=== PATIENT | male | born 1940 | race Caucasian/White ===

== ENCOUNTER → 2017-01-09 | Outpatient (CLI) | payer MEDICARE, OTHER ==
[2017-01-09 09:11] LABS: ABSOLUTE BASOPHILS # (AUTO) 0.1 10^3/uL (0.0-0.2); ABSOLUTE EOSINOPHILS # (AUTO) 0.5 10^3/uL (0.0-0.6); ABSOLUTE MONOCYTES (AUTO) 0.5 10^3/uL (0.1-1.4); ABSOLUTE NEUT (AUTO) 6.3 10^3/uL (1.7-8.2); BASOPHILS % (AUTO) 0.6 % (0-2); EOSINOPHILS % (AUTO) 6.5 % (0-6); HEMATOCRIT 29.9 % (37.9-51.0); HEMOGLOBIN 9.4 g/dL (13.5-17.0); HGB HCT DIFFERENCE -1.7; LYMPHOCYTES % (AUTO) 12.4 % (13-45); MEAN CORPUSCULAR HGB CONC 31.4 g/dL (32.0-36.0); MEAN CORPUSCULAR VOLUME 83 fl (80-97); MONOCYTES % (AUTO) 6.2 % (3-13); RED BLOOD COUNT 3.61 10^6/uL (4.35-5.55); RED CELL DISTRIBUTION WIDTH 17.3 % (11.5-14.0); SEGMENTED NEUTROPHILS % (AUTO) 74.3 % (42-78); WHITE BLOOD COUNT 8.4 10^3/uL (4.0-10.5)
[2017-01-09 09:39] LABS: ANION GAP 12 (5-19); BLOOD UREA NITROGEN 52 mg/dL (7-20); CALCIUM 9.1 mg/dL (8.4-10.2); CARBON DIOXIDE 30 mmol/L (22-30); CHLORIDE 100 mmol/L (98-107); GLUCOSE 150 mg/dL (75-110); POTASSIUM 4.1 mmol/L (3.6-5.0)
== END ==
LOC: LAB 08:48
PROVIDERS: ATTEND Internal Medicine Cardiovascular Disease
DX: I25.10 Atherosclerotic heart disease of native coronary artery without angina pectoris (principal); D64.9 Anemia, unspecified
CPT/HCPCS: 36415; 80048; 85025

== ENCOUNTER → 2017-01-12 | Outpatient (CLI) | payer MEDICARE, OTHER ==
[2017-01-12 11:55] LABS: ANION GAP 13 (5-19); BLOOD UREA NITROGEN 42 mg/dL (7-20); CALCIUM 8.8 mg/dL (8.4-10.2); CARBON DIOXIDE 28 mmol/L (22-30); CHLORIDE 102 mmol/L (98-107); CREATININE RESULT 2.64 mg/dL (0.52-1.25); GLUCOSE 85 mg/dL (75-110); POTASSIUM 4.2 mmol/L (3.6-5.0); SODIUM 142.9 mmol/L (137-145)
== END ==
LOC: LAB 11:14
PROVIDERS: ATTEND Internal Medicine Cardiovascular Disease
DX: I50.9 Heart failure, unspecified (principal); I10 Essential (primary) hypertension; I73.9 Peripheral vascular disease, unspecified
CPT/HCPCS: 36415; 80048

== ENCOUNTER 2017-12-18 09:52 | Inpatient (IN) | payer MEDICARE, OTHER ==
--- NOTE | 2017-12-18 10:18 | ER Document Report ---
ED General - General Chief Complaint: Shortness Of Breath Stated Complaint: SHORTNESS OF BREATH Time Seen by Provider: 12/18/17 09:57 Mode of Arrival: Medic Information source: Patient, Emergency Med Personnel Notes: 77-year-old male history of CHF, with dialysis access placed presents febrile tachycardic hypoxic from home. Patient was given 1 nitroglycerin by EMS, he was found to be satting 78% on room air was placed on nonrebreather initial temp was 101.2 Patient is not on oxygen at home TRAVEL OUTSIDE OF THE [place] IN LAST 30 DAYS: No - HPI Onset: Yesterday Onset/Duration: Sudden Quality of pain: No pain Severity: Severe Pain Level: Denies Associated symptoms: Fever, Shortness of breath Exacerbated by: Denies Relieved by: Denies Similar symptoms previously: Yes Recently seen / treated by doctor: No - Related Data Allergies/Adverse Reactions: enalapril [Enalapril] Allergy (Severe, Verified 12/18/17 10:13) Angioneurotic Edema shrimp Allergy (Verified 12/18/17 10:13) Past Medical History - Social History Smoking Status: Never Smoker Cigarette use (# per day): No Chew tobacco use (# tins/day): No Smoking Education Provided: No Family History: Reviewed & Not Pertinent, Other - no FH of familial angioedema - Past Medical History Cardiac Medical History: Reports: Hx Heart Attack - 2007, Hx Hypercholesterolemia, Hx Hypertension Denies: Hx Coronary Artery Disease Pulmonary Medical History: Reports: Hx COPD Denies: Hx Asthma, Hx Bronchitis, Hx Pneumonia Neurological Medical History: Denies: Hx Cerebrovascular Accident, Hx Seizures Endocrine Medical History: Reports: Hx Diabetes Mellitus Type 2 Renal/ Medical History: Reports: Hx End Stage Renal Disease Musculoskeltal Medical History: Reports Hx Arthritis - GENERALIZED THROUGHOUT Psychiatric Medical History: Reports: Hx Depression - Immunizations Hx Diphtheria, Pertussis, Tetanus Vaccination: No Hx Pneumococcal Vaccination: 08/06/14 Review of Systems - Review of Systems Notes: REVIEW OF SYSTEMS: CONSTITUTIONAL : Admits to fever EENT: Denies eye, ear, throat, or mouth pain or symptoms. Denies nasal or sinus congestion or discharge. Denies throat, tongue, or mouth swelling or difficulty swallowing. CARDIOVASCULAR: Denies chest pain. Denies palpitations or racing or irregular heart beat. Denies ankle edema. RESPIRATORY: Admits to shortness of breath GASTROINTESTINAL: Denies abdominal pain or distention. Denies nausea, vomiting , or diarrhea. Denies blood in vomitus, stools, or per rectum. Denies black, tarry stools. Denies constipation. GENITOURINARY: Denies difficulty urinating, painful urination, burning, frequency, blood in urine, or discharge. MUSCULOSKELETAL: Denies back or neck pain or stiffness. Denies joint pain or swelling. SKIN: Denies rash, lesions or sores. HEMATOLOGIC : Denies easy bruising or bleeding. LYMPHATIC: Denies swollen, enlarged glands. NEUROLOGICAL: Denies confusion or altered mental status. Denies passing out or loss of consciousness. Denies dizziness or lightheadedness. Denies headache. Denies weakness or paralysis or loss of use of either side. Denies problems with gait or speech. Denies sensory loss, numbness, or tingling. Denies seizures. PSYCHIATRIC: Denies anxiety or stress. Denies depression, suicidal ideation, or homicidal ideation. ALL OTHER SYSTEMS REVIEWED AND NEGATIVE. Dictation was performed using [employer] voice recognition software PHYSICAL EXAMINATION: GENERAL: Ill-appearing male on nasal cannula HEAD: Atraumatic, normocephalic. EYES: Pupils equal round and reactive to light, extraocular movements intact, sclera anicteric, conjunctiva are normal. ENT: Nares patent, oropharynx clear without exudates. Moist mucous membranes. NECK: Normal range of motion, supple without lymphadenopathy LUNGS: Rhonchi bilateral bases satting 95% on nasal cannula HEART: Regular rate and rhythm without murmurs ABDOMEN: Soft, nontender, nondistended abdomen. No guarding, no rebound. No masses appreciated. Musculoskeletal: Normal range of motion, no pitting or edema. No cyanosis. NEUROLOGICAL: Cranial nerves grossly intact. Normal speech, normal gait. Normal sensory, motor exams slightly confused PSYCH: Normal mood, normal affect. SKIN: Hot to touch Physical Exam - Vital signs Vitals: Pulse Ox 96 12/18/17 09:53 Course - Re-evaluation Re-evalutation: 12/18/17 10:23 Patient's presentation is consistent with a febrile illness probable pneumonia, lab work imaging pending 12/18/17 11:04 Noted to have troponin 1.0 , yesterday at [facility] was negative per transfer center. 12/18/17 11:30 Chest x-ray is consistent with pneumonia antibiotics have been started I will hold IV fluids given history of kidney failure - Vital Signs Vital signs: Temp Pulse Resp BP Pulse Ox 26 H 175/73 H 98 12/18/17 10:46 12/18/17 10:46 12/18/17 10:46 - Laboratory Result Diagrams: 12/18/17 09:58 12/18/17 09:58 Laboratory results interpreted by me: 12/18/17 12/18/17 12/18/17 09:58 09:58 09:58 RBC 3.86 L Hgb 11.1 L Hct 34.1 L RDW 16.9 H Seg Neuts % (Manual) 86 H Lymphocytes % (Manual) 8 L VBG pH VBG pCO2 Sodium 146.0 H Carbon Dioxide 31 H BUN 55 H Creatinine 3.69 H Est GFR ( Amer) 19 L Est GFR (Non-Af Amer) 16 L Glucose 166 H AST 68 H Creatine Kinase 1037 H CK-MB (CK-2) 12.80 H NT-Pro-B Natriuret Pep 2660 H 12/18/17 09:58 RBC Hgb Hct RDW Seg Neuts % (Manual) Lymphocytes % (Manual) VBG pH 7.26 L VBG pCO2 71.6 H* Sodium Carbon Dioxide BUN Creatinine Est GFR ( Amer) Est GFR (Non-Af Amer) Glucose AST Creatine Kinase CK-MB (CK-2) NT-Pro-B Natriuret Pep - Diagnostic Test Radiology reviewed: Image reviewed - 1 view chest x-ray notes pneumonia, Reports reviewed Critical Care Note - Critical Care Note Total time excluding time spent on procedures (mins): 35 Comments: 35 minutes of critical care time spent in direct contact evaluating and reevaluating the patient, treating symptoms, reviewing labs and studies and speaking with family and consultants excluding any procedures Discharge - Discharge Clinical Impression: Elevated troponin Chronic kidney disease Qualifiers: Chronic kidney disease stage: stage 4 (severe) Qualified Code(s): N18.4 - Chronic kidney disease, stage 4 (severe) Pneumonia Qualifiers: Pneumonia type: due to unspecified organism Laterality: right Lung location: lower lobe of lung Qualified Code(s): J18.1 - Lobar pneumonia, unspecified organism Sepsis Qualifiers: Sepsis type: sepsis due to unspecified organism Qualified Code(s): A41.9 - Sepsis, unspecified organism Condition: Fair Disposition: ADMITTED INPATIENT Admitting Provider: Hospitalist Unit Admitted: IMCU Referrals: JERAMY GUALLPA MD [Primary Care Provider] - Follow up as needed
[2017-12-18 10:37] LABS: HEMATOCRIT 34.1 % (37.9-51.0); HEMOGLOBIN 11.1 g/dL (13.5-17.0); MEAN CORPUSCULAR HEMOGLOBIN 28.6 pg (27.0-33.4); MEAN CORPUSCULAR HGB CONC 32.4 g/dL (32.0-36.0); MEAN CORPUSCULAR VOLUME 88 fl (80-97); PLATELET COUNT 157 10^3/uL (150-450); RED BLOOD COUNT 3.86 10^6/uL (4.35-5.55); RED CELL DISTRIBUTION WIDTH 16.9 % (11.5-14.0); WHITE BLOOD COUNT 9.4 10^3/uL (4.0-10.5)
--- NOTE | 2017-12-18 10:40 | RADIOLOGY REPORT (SQ) ---
EXAM DESCRIPTION: CHEST SINGLE VIEW COMPLETED DATE/TIME: 12/18/2017 10:09 am REASON FOR STUDY: bed 19 db COMPARISON: January 2016 EXAM PARAMETERS: NUMBER OF VIEWS: 1 TECHNIQUE: Single frontal radiographic view of the chest acquired. RADIATION DOSE: NA LIMITATIONS: Patient has made a shallow inspiration. FINDINGS: LUNGS AND PLEURA: There is some minimal right basilar densities most consistent with atele ctatic changes although I cannot exclude a minimal infiltrate. Remaining lung nunn are clear. No pleural effusions are identified. MEDIASTINUM AND HILAR STRUCTURES: No masses. Contour normal. HEART AND VASCULAR STRUCTURES: Allowing for the shallow inspiration the configuration of the heart me diastinal structures is unchanged BONES: No acute findings. HARDWARE: None in the chest. OTHER: There is some narrowing of the tracheal air column in the lower cervical region unchanged from the previous study IMPRESSION: Minimal right basilar densities most consistent with atelectatic changes although I grzegorz ot exclude a minimal infiltrate. Remaining lung nunn are clear. Other findings as noted above TECHNICAL DOCUMENTATION: JOB ID: [id number] [employer]- All Rights Reserved Reading location - IP/workstation name: [email or web address]
[2017-12-18 10:48] LABS: ALANINE AMINOTRANSFERASE 32 U/L (21-72); ALBUMIN 3.5 g/dL (3.5-5.0); ALKALINE PHOSPHATASE 70 U/L (38-126); ANION GAP 14 (5-19); ASPARTATE AMINO TRANSFERASE 68 U/L (17-59); BILIRUBIN,DIRECT 0.2 mg/dL (0.0-0.4); BILIRUBIN,TOTAL 0.2 mg/dL (0.2-1.3); BLOOD UREA NITROGEN 55 mg/dL (7-20); CALCIUM 8.4 mg/dL (8.4-10.2); CARBON DIOXIDE 31 mmol/L (22-30); CHLORIDE 101 mmol/L (98-107); CREATINE KINASE 1037 U/L (55-170); GLUCOSE 166 mg/dL (75-110); POTASSIUM 4.9 mmol/L (3.6-5.0); TOTAL PROTEIN 7.2 g/dL (6.3-8.2)
[2017-12-18 10:59] LABS: CREATINE KINASE MB 12.8 ng/mL (<4.55); VENOUS BLOOD BASE EXCESS 2.6 mmol/L; VENOUS BLOOD HCO3 31.4 mmol/L (20-32); VENOUS BLOOD PH 7.26 (7.30-7.42)
[2017-12-18 11:01] LABS: VENOUS BLOOD PCO2 71.6 mmHg (35-63)
[2017-12-18 11:02] LABS: TROPONIN I 1.03 ng/mL
[2017-12-18 11:20] LABS: ABSOLUTE LYMPHOCYTES# (MANUAL) 0.8 10^3/uL (0.5-4.7); ABSOLUTE MONOCYTES # (MANUAL) 0.6 10^3/uL (0.1-1.4); ABSOLUTE NEUTROPHILS# (MANUAL) 8.1 10^3/uL (1.7-8.2); ANISOCYTOSIS SLIGHT; BASOPHILS % (MANUAL) 0 % (0-2); EOSINOPHILS % (MANUAL) 0 % (0-6); HYPOCHROMASIA SLIGHT; LYMPHOCYTES % (MANUAL) 8 % (13-45); MONOCYTES % (MANUAL) 6 % (3-13); PLATELET COMMENT ADEQUATE; SEGMENTED NEUTROPHILS % (MAN) 86 % (42-78); TOTAL CELLS COUNTED 100; TOXIC GRANULATION SLIGHT; TOXIC VACUOLATION PRESENT
[2017-12-18] MEDS ORDERED: CEFTRIAXONE INJ 1000 MG VIAL IV ONE (11:24)
[2017-12-18] MEDS ORDERED: IPRATROPIUM/ALBUTEROL 0.5-2.5 MG/3 ML AMPUL NEB PRN (11:33)
[2017-12-18] MEDS ORDERED: ACETAMINOPHEN 325 MG TABLET PO PRN (11:33)
[2017-12-18] MEDS ORDERED: ACETAMINOPHEN 325 MG SUPP.RECT PR ONE (11:55)
[2017-12-18 12:11] LABS: AMORPHOUS SEDIMENT,URINE TRACE /HPF; APPEARANCE,URINE SLIGHTLY-CLOUDY; BILIRUBIN,URINE NEGATIVE (NEGATIVE); COLOR,URINE YELLOW; GLUCOSE, URINE 50 mg/dL (NEGATIVE); KETONES,URINE NEGATIVE (NEGATIVE); LEUKOCYTE ESTERASE,URINE NEGATIVE (NEGATIVE); NITRITE,URINE NEGATIVE (NEGATIVE); PROTEIN,URINE >=500 mg/dL (NEGATIVE); URINE SPECIFIC GRAVITY 1.017; UROBILINOGEN,URINE NEGATIVE mg/dL (<2.0)
--- NOTE | 2017-12-18 14:03 | PDOC H&P ---
History of Present Illness Admission Date/PCP: 12/18/17 11:50 JERAMY GUALLPA MD Patient complains of: Fever, cough and confusion History of Present Illness: LAURO CAI is a 77 year old male with history of CHF, with dialysis access catheter placed but not on dialysis yet presents with fever of 101.2, tachycardia and hypoxemia from home. Patient was found to have oxygen saturations in the 70's on room air. He was placed on a nonrebreather mask and transported to [facility]'s ED. He had been seen at [facility] ED yesterday with complaints of cough, fever and not feeling well and had a work up and was discharged home. He denies any nausea, vomiting or diarrhea. He denies any dysuria. Past Medical History Cardiac Medical History: Reports: Congestive Heart Failure, Myocardial Infarction - 2007, Hyperlipidema, Hypertension Denies: Coronary Artery Disease Pulmonary Medical History: Reports: Chronic Obstructive Pulmonary Disease (COPD) Denies: Asthma, Bronchitis, Pneumonia EENT Medical History: Reports: None Neurological Medical History: Reports: None Denies: Seizures Endocrine Medical History: Reports: Diabetes Mellitus Type 2 Renal/ Medical History: Reports: End Stage Renal Disease Malignancy Medical History: Reports: None GI Medical History: Reports: Gastroesophageal Reflux Disease Musculoskeltal Medical History: Reports: Arthritis - GENERALIZED THROUGHOUT Psychiatric Medical History: Reports: Depression Hematology: Reports: Anemia Past Surgical History Past Surgical History: Reports: Other - Dialysis catheter Social History Information Source: Patient Lives with: Family Smoking Status: Never Smoker Frequency of Alcohol Use: Occasional Hx Recreational Drug Use: No Drugs: None Hx Prescription Drug Abuse: No - Advance Directive Resuscitation Status: Full Code Surrogate healthcare decision maker:: Susie Cai Family History Family History: DM, Other - no FH of familial angioedema Parental Family History Reviewed: Yes Children Family History Reviewed: Yes Sibling(s) Family History Reviewed.: Yes Medication/Allergy Home Medications: Albuterol Sulfate [Proair HFA] 2 puff IH Q4HP PRN 12/18/17 Amlodipine Besylate [Norvasc 10 mg Tablet] 10 mg PO QPM 12/18/17 Aspirin [Adult Low Dose Aspirin EC] 81 mg PO DAILY 12/18/17 Cetirizine HCl [Zyrtec 10 mg Tablet] 10 mg PO QPM 12/18/17 Escitalopram Oxalate [Lexapro] 20 mg PO QHS 12/18/17 Ferrous Sulfate [Feosol 325 mg Tablet] 325 mg PO DAILY 12/18/17 Finasteride [Proscar 5 mg Tablet] 5 mg PO QPM 12/18/17 Fluticasone/Salmeterol [Advair 500-50 Diskus 28 Dose] 1 puff IH Q12 12/18/17 Furosemide [Lasix 40 mg Tablet] 40 mg PO DAILY 12/18/17 Gabapentin [Neurontin 300 mg Capsule] 300 mg PO Q8 12/18/17 Isosorbide Mononitrate [Imdur 30 mg Tablet.er] 30 mg PO DAILY 12/18/17 Linagliptin [Tradjenta] 5 mg PO DAILY 12/18/17 Metolazone [Zaroxolyn 2.5 mg Tablet] 2.5 mg PO DAILY 12/18/17 Metoprolol Succinate [Toprol Xl 25 mg Tab.sr] 12.5 mg PO QAM 12/18/17 Multivitamin [Daily Multiple Vitamin] 1 tab PO DAILY 12/18/17 Potassium Chloride [Klor-Con M20] 20 meq PO DAILY 12/18/17 Prazosin HCl [Minipress] 2 mg PO BID 12/18/17 Risperidone [Risperdal 1 mg Tablet] 1 mg PO QPM 12/18/17 Simvastatin [Zocor 20 mg Tablet] 20 mg PO QHS 12/18/17 Torsemide [Demadex 20 mg Tablet] 20 mg PO QPM 12/18/17 l [place]/B Bifidum/B Longum [Cage MyLifeBrand Capsule] 1 cap PO DAILY Allergies/Adverse Reactions: enalapril [Enalapril] Allergy (Severe, Verified 12/18/17 10:13) Angioneurotic Edema shrimp Allergy (Verified 12/18/17 10:13) Review of Systems Constitutional: PRESENT: chills, fatigue, fever(s), weakness Eyes: ABSENT: visual disturbances Ears: PRESENT: as per HPI Nose, Mouth, and Throat: PRESENT: as per HPI Breasts: PRESENT: as per HPI Cardiovascular: PRESENT: as per HPI Respiratory: PRESENT: cough, dyspnea, sputum Gastrointestinal: ABSENT: abdominal pain, constipation, diarrhea, hematemesis, hematochezia, nausea, vomiting Genitourinary: ABSENT: dysuria, hematuria Musculoskeletal: ABSENT: joint swelling Integumentary: ABSENT: rash, wounds Neurological: ABSENT: abnormal gait, abnormal speech, confusion, dizziness, focal weakness, syncope Psychiatric: ABSENT: anxiety, depression, homidical ideation, suicidal ideation Endocrine: ABSENT: cold intolerance, heat intolerance, polydipsia, polyuria Hematologic/Lymphatic: ABSENT: easy bleeding, easy bruising Physical Exam Vital Signs: Temp Pulse Resp BP Pulse Ox 98.1 F 22 H 163/55 H 93 12/18/17 13:38 12/18/17 13:31 12/18/17 13:31 12/18/17 13:31 General appearance: PRESENT: no acute distress, disheveled, obese, well- developed, well-nourished Head exam: PRESENT: atraumatic, normocephalic Eye exam: PRESENT: conjunctiva pink, EOMI, PERRLA. ABSENT: scleral icterus Ear exam: PRESENT: normal external ear exam Mouth exam: PRESENT: moist, tongue midline Teeth exam: PRESENT: poor dentation Neck exam: ABSENT: carotid bruit, JVD, lymphadenopathy, thyromegaly Respiratory exam: PRESENT: crackles - right base, decreased breath sounds, symmetrical, unlabored Cardiovascular exam: PRESENT: RRR. ABSENT: diastolic murmur, rubs, systolic murmur Vascular exam: PRESENT: normal capillary refill GI/Abdominal exam: PRESENT: normal bowel sounds, soft. ABSENT: distended, guarding, mass, organolmegaly, rebound, tenderness Rectal exam: PRESENT: deferred Extremities exam: PRESENT: full ROM. ABSENT: calf tenderness, clubbing, pedal edema Neurological exam: PRESENT: alert, awake, oriented to person, oriented to place , CN II-XII grossly intact. ABSENT: motor sensory deficit Psychiatric exam: PRESENT: appropriate affect, normal mood. ABSENT: homicidal ideation, suicidal ideation Skin exam: PRESENT: dry, warm, other - Chronic venous stasis changes over lower extremities Results Impressions: Chest X-Ray 12/18/17 09:55 IMPRESSION: Minimal right basilar densities most consistent with atelectatic changes although I cannot exclude a minimal infiltrate. Remaining lung nunn are clear. Other findings as noted above Assessment & Plan - Diagnosis (1) Sepsis Qualifiers: Sepsis type: sepsis due to unspecified organism Qualified Code(s): A41.9 - Sepsis, unspecified organism Is this a current diagnosis for this admission?: Yes Plan: Patient was found to have fever, tachycardia, tachypnea and hypoxemia upon presentation. He was given one liter of fluid prehospital. He was not given more fluid due to his CKD and history of heart failure. Symptoms resolved with oxygen and IV antibiotic initiation. Blood cultures and urine culture are pending (2) Pneumonia Qualifiers: Pneumonia type: due to unspecified organism Laterality: right Lung location: lower lobe of lung Qualified Code(s): J18.1 - Lobar pneumonia, unspecified organism Is this a current diagnosis for this admission?: Yes Plan: Start broad spectrum antibiotics (3) Acute on chronic renal failure Is this a current diagnosis for this admission?: Yes Plan: Will monitor. Avoid nephrotoxic medications (4) Diabetes Qualifiers: Diabetes mellitus type: type 2 Diabetes mellitus complication status: with diabetic arthropathy Is this a current diagnosis for this admission?: Yes Plan: Sliding scale coverage (5) Elevated troponin Is this a current diagnosis for this admission?: Yes Plan: Likely secondary to profound hypoxemia. He had a negative cardiolite stress test in January - Time Time Spent: 50 to 70 Minutes Critical Time spent with patient: 25-34 minutes Medications reviewed and adjusted accordingly: Yes
[2017-12-18] MEDS ORDERED: GLUCAGON,HUMAN RECOMB 1 MG INJ IM PRN (14:23)
[2017-12-18] MEDS ORDERED: DEXTROSE 40% GEL 15 GM TUBE PO PRN ×2 (14:23)
[2017-12-18] MEDS ORDERED: DEXTROSE 50%-WATER 25 GM/50 ML DISP.SYRIN IV PRN ×2 (14:23)
[2017-12-18] MEDS: IPRATROPIUM/ALBUTEROL 0.5-2.5 MG/3 ML AMPUL NEB SCH ×2 (16:02→23:50)
[2017-12-18 17:27] LABS: ARTERIAL BLOOD BASE EXCESS 1.7 mmol/L; ARTERIAL BLOOD HCO3 29.5 mmol/L (20-26); ARTERIAL BLOOD O2 SATURATION 95.1 % (94-98); ARTERIAL BLOOD PH 7.29 (7.35-7.45); ARTERIAL BLOOD PO2 85.8 mmHg (80-100); ARTERIAL BLOOD TOTAL CO2 31.4 mmol/L (23-27)
[2017-12-18 17:29] LABS: ARTERIAL BLOOD FIO2 3L
[2017-12-18] MEDS: AMLODIPINE BESYLATE 10 MG TABLET PO SCH (18:30)
[2017-12-18] MEDS: RISPERIDONE 1 MG TABLET PO SCH (18:31)
[2017-12-18] MEDS: CETIRIZINE 10 MG TABLET PO SCH (18:31)
[2017-12-18] MEDS: FINASTERIDE 5 MG TABLET PO SCH (18:31)
--- NOTE | 2017-12-18 21:15 | EKG REPORT ---
SEVERITY:- BORDERLINE ECG - SINUS RHYTHM BORDERLINE PROLONGED QT INTERVAL : Confirmed by: Fausto Satler 18-Dec-2017 21:14:24
[2017-12-18] MEDS: ESCITALOPRAM OXALATE 10 MG TABLET PO SCH (21:53)
[2017-12-18] MEDS: SIMVASTATIN 10 MG TABLET PO SCH (21:54)
[2017-12-18] MEDS: FAMOTIDINE 20 MG TABLET PO SCH (21:54)
[2017-12-18] MEDS: GUAIFENESIN 600 MG TABLET.SA PO SCH (21:54)
[2017-12-18] MEDS: GABAPENTIN 300 MG CAPSULE PO SCH (21:55)
[2017-12-18] MEDS: FLUTICASONE/SALMETEROL DISKUS 500-50 MCG/DOSE IH SCH (21:55)
[2017-12-19] MEDS: GABAPENTIN 300 MG CAPSULE PO SCH ×3 (05:41→22:39)
[2017-12-19 06:00] LABS: ABSOLUTE BASOPHILS # (AUTO) 0.1 10^3/uL (0.0-0.2); ABSOLUTE EOSINOPHILS # (AUTO) 0.2 10^3/uL (0.0-0.6); ABSOLUTE LYMPHOCYTES (AUTO) 0.8 10^3/uL (0.5-4.7); ABSOLUTE MONOCYTES (AUTO) 0.6 10^3/uL (0.1-1.4); ABSOLUTE NEUT (AUTO) 5.2 10^3/uL (1.7-8.2); BASOPHILS % (AUTO) 0.8 % (0-2); EOSINOPHILS % (AUTO) 3.1 % (0-6); HEMATOCRIT 31.3 % (37.9-51.0); HEMOGLOBIN 10.2 g/dL (13.5-17.0); LYMPHOCYTES % (AUTO) 12.1 % (13-45); MEAN CORPUSCULAR HEMOGLOBIN 28.4 pg (27.0-33.4); MEAN CORPUSCULAR HGB CONC 32.7 g/dL (32.0-36.0); MEAN CORPUSCULAR VOLUME 87 fl (80-97); MONOCYTES % (AUTO) 8.2 % (3-13); PLATELET COUNT 122 10^3/uL (150-450); RED CELL DISTRIBUTION WIDTH 16.4 % (11.5-14.0); SEGMENTED NEUTROPHILS % (AUTO) 75.8 % (42-78); TOTAL CELLS COUNTED % (AUTO) 100 %; WHITE BLOOD COUNT 6.9 10^3/uL (4.0-10.5)
[2017-12-19 06:14] LABS: ANION GAP 7 (5-19); BLOOD UREA NITROGEN 51 mg/dL (7-20); CALCIUM 8.3 mg/dL (8.4-10.2); CARBON DIOXIDE 34 mmol/L (22-30); CHLORIDE 102 mmol/L (98-107); GLUCOSE 136 mg/dL (75-110); POTASSIUM 4.1 mmol/L (3.6-5.0); SODIUM 143.1 mmol/L (137-145)
[2017-12-19] MEDS: IPRATROPIUM/ALBUTEROL 0.5-2.5 MG/3 ML AMPUL NEB SCH ×3 (08:15→23:51)
[2017-12-19] MEDS: ASPIRIN 81 MG TABLET, ENT COATED PO SCH (09:54)
[2017-12-19] MEDS: FERROUS SULFATE 325 MG TABLET PO SCH (09:54)
[2017-12-19] MEDS: GUAIFENESIN 600 MG TABLET.SA PO SCH ×2 (09:54→22:40)
[2017-12-19] MEDS: ISOSORBIDE MONONITRATE 30 MG TAB.ER.24H PO SCH (09:55)
[2017-12-19] MEDS: MULTIVITAMIN TABLET PO SCH (09:55)
[2017-12-19] MEDS: AZITHROMYCIN 500 MG in DEXTROSE 5%-WATER 250 ML IV SCH (09:57)
[2017-12-19] MEDS: FAMOTIDINE 20 MG TABLET PO SCH ×2 (09:57→22:40)
[2017-12-19] MEDS ORDERED: CEFTRIAXONE 1 GM/D5W RTU 1 GM/50 ML RTUPB IV SCH (10:00)
[2017-12-19] MEDS ORDERED: ENOXAPARIN SODIUM INJ 30 MG/0.3 ML DISP.SYRIN SUBCUT SCH (10:00)
[2017-12-19] MEDS ORDERED: METOPROLOL SUCCINATE 25 MG TAB.SR.24H PO SCH (10:45)
[2017-12-19] MEDS ORDERED: METOPROLOL SUCCINATE 25 MG TAB.SR.24H PO ONE (12:00)
[2017-12-19] MEDS: CEFTRIAXONE SODIUM 1,000 MG in DEXTROSE 5%-WATER 50 ML IV SCH (12:21)
[2017-12-19] MEDS: FLUTICASONE/SALMETEROL DISKUS 500-50 MCG/DOSE IH SCH ×2 (12:22→22:43)
[2017-12-19] MEDS: INSULIN LISPRO 100 UNIT/ML 3 ML VIAL SUBCUT PRN ×2 (12:25→17:23)
--- NOTE | 2017-12-19 15:58 | PDOC PROGRESS REPORT ---
Subjective Progress Note for:: 12/19/17 Subjective:: 77-year-old gentleman with past medical history of CHF, EF unknown Chronic kidney disease with a dialysis access catheter not yet initiated on dialysis. COPD Coronary artery disease status post prior myocardial infarction Hypertension Hyperlipidemia Type 2 diabetes GERD Depression He presented to the hospital with fever cough and confusion. He was found to have a fever and was hypoxic with sats in the 70s on room air. The patient was diagnosed with sepsis and started on Rocephin and azithromycin for pneumonia. He reportedly had a negative stress test in January 2018. Troponin was abnormal. [place] to be secondary to sepsis. No acute ST segment or T-wave changes on EKG. BNP was elevated at 2660. Reason For Visit: PNEUMONIA ACUTE RESPIRATORY FAILURE WITH Physical Exam Vital Signs: Temp Pulse Resp BP Pulse Ox 98.7 F 65 16 158/46 H 98 12/19/17 07:52 12/19/17 08:15 12/19/17 08:15 12/19/17 07:52 12/19/17 08:15 Intake & Output 12/18/17 12/19/17 12/20/17 06:59 06:59 06:59 Intake Total 330 Balance 330 Weight 118.1 kg General appearance: PRESENT: no acute distress Head exam: PRESENT: normocephalic Ear exam: PRESENT: normal external ear exam Mouth exam: PRESENT: moist Respiratory exam: PRESENT: crackles, rhonchi, symmetrical Cardiovascular exam: PRESENT: RRR GI/Abdominal exam: PRESENT: normal bowel sounds, soft. ABSENT: tenderness Rectal exam: PRESENT: deferred Extremities exam: PRESENT: other - chronic venous stasis changes Neurological exam: PRESENT: alert, awake Skin exam: ABSENT: petechiae Results Laboratory Results: 12/19/17 05:30 12/19/17 05:30 12/18/17 12/19/17 12/19/17 17:15 05:30 05:30 WBC 6.9 RBC 3.60 L Hgb 10.2 L Hct 31.3 L MCV 87 MCH 28.4 MCHC 32.7 RDW 16.4 H Plt Count 122 L Seg Neutrophils % 75.8 Lymphocytes % 12.1 L Monocytes % 8.2 Eosinophils % 3.1 Basophils % 0.8 Absolute Neutrophils 5.2 Absolute Lymphocytes 0.8 Absolute Monocytes 0.6 Absolute Eosinophils 0.2 Absolute Basophils 0.1 Carbonic Acid 1.90 H HCO3/H2CO3 Ratio 15:1 ABG pH 7.29 L ABG pCO2 63.0 H ABG pO2 85.8 ABG HCO3 29.5 H ABG O2 Saturation 95.1 ABG Base Excess 1.7 FiO2 3L Sodium 143.1 Potassium 4.1 Chloride 102 Carbon Dioxide 34 H Anion Gap 7 BUN 51 H Creatinine 3.06 H Est GFR ( Amer) 24 L Est GFR (Non-Af Amer) 20 L Glucose 136 H Calcium 8.3 L Impressions: Chest X-Ray 12/18/17 09:55 IMPRESSION: Minimal right basilar densities most consistent with atelectatic changes although I cannot exclude a minimal infiltrate. Remaining lung nunn are clear. Other findings as noted above Assessment & Plan - Diagnosis (1) Pneumonia Qualifiers: Pneumonia type: due to unspecified organism Laterality: right Lung location: lower lobe of lung Qualified Code(s): J18.1 - Lobar pneumonia, unspecified organism Is this a current diagnosis for this admission?: Yes Plan: Day 2 of Rocephin and Azithromycin. Follow up on blood cultures. Check sputum cultures. (2) Sepsis Qualifiers: Sepsis type: sepsis due to unspecified organism Qualified Code(s): A41.9 - Sepsis, unspecified organism Is this a current diagnosis for this admission?: Yes Plan: Due to R lower lobe pneumonia. Management as above (3) Diabetes Qualifiers: Diabetes mellitus type: type 2 Diabetes mellitus complication status: with diabetic arthropathy Is this a current diagnosis for this admission?: Yes Plan: Insulin sliding scale (4) CAD (coronary artery disease) Is this a current diagnosis for this admission?: Yes Plan: Continue outpatient meds including Aspirin, Norvasc, Metoprolol, Imdur, Simvastatin (5) Depression Is this a current diagnosis for this admission?: Yes Plan: Continue outpatient meds (6) COPD (chronic obstructive pulmonary disease) Is this a current diagnosis for this admission?: Yes Plan: Continue Advair, nebs prn (7) BPH (benign prostatic hyperplasia) Is this a current diagnosis for this admission?: Yes Plan: Continue outpatient meds (8) CKD (chronic kidney disease) stage 4, GFR 15-29 ml/min Is this a current diagnosis for this admission?: Yes Plan: Stable - Time Time Spent with patient: 35 or more minutes
[2017-12-19] MEDS: LACTOBACILLUS ACIDOPHILUS 250 MG TAB PO SCH (17:08)
[2017-12-19] MEDS: CETIRIZINE 10 MG TABLET PO SCH (17:09)
[2017-12-19] MEDS: AMLODIPINE BESYLATE 10 MG TABLET PO SCH (17:09)
[2017-12-19] MEDS: RISPERIDONE 1 MG TABLET PO SCH (17:09)
[2017-12-19] MEDS: FINASTERIDE 5 MG TABLET PO SCH (17:13)
[2017-12-19] MEDS: ESCITALOPRAM OXALATE 10 MG TABLET PO SCH (22:39)
[2017-12-19] MEDS: SIMVASTATIN 10 MG TABLET PO SCH (22:40)
[2017-12-20 06:41] LABS: HEMATOCRIT 31.5 % (37.9-51.0); HEMOGLOBIN 10.1 g/dL (13.5-17.0); MEAN CORPUSCULAR HGB CONC 32.1 g/dL (32.0-36.0); MEAN CORPUSCULAR VOLUME 87 fl (80-97); PLATELET COUNT 118 10^3/uL (150-450); RED CELL DISTRIBUTION WIDTH 16.5 % (11.5-14.0); WHITE BLOOD COUNT 8.4 10^3/uL (4.0-10.5)
[2017-12-20 06:49] LABS: ANION GAP 6 (5-19); BLOOD UREA NITROGEN 50 mg/dL (7-20); CALCIUM 8.3 mg/dL (8.4-10.2); CARBON DIOXIDE 34 mmol/L (22-30); CHLORIDE 100 mmol/L (98-107); GLUCOSE 156 mg/dL (75-110); PHOSPHORUS 3.6 mg/dL (2.5-4.5); SODIUM 139.8 mmol/L (137-145)
[2017-12-20] MEDS: GABAPENTIN 300 MG CAPSULE PO SCH ×3 (06:52→22:04)
[2017-12-20] MEDS: IPRATROPIUM/ALBUTEROL 0.5-2.5 MG/3 ML AMPUL NEB SCH ×2 (08:48→15:52)
[2017-12-20] MEDS: ASPIRIN 81 MG TABLET, ENT COATED PO SCH (10:08)
[2017-12-20] MEDS ORDERED: AMLODIPINE BESYLATE 10 MG TABLET PO SCH (10:11)
[2017-12-20] MEDS: CEFTRIAXONE SODIUM 1,000 MG in DEXTROSE 5%-WATER 50 ML IV SCH (10:14)
[2017-12-20] MEDS: FERROUS SULFATE 325 MG TABLET PO SCH (10:14)
[2017-12-20] MEDS: MULTIVITAMIN TABLET PO SCH (10:14)
[2017-12-20] MEDS: LACTOBACILLUS ACIDOPHILUS 250 MG TAB PO SCH ×2 (10:15→17:08)
[2017-12-20] MEDS: GUAIFENESIN 600 MG TABLET.SA PO SCH ×2 (10:15→22:04)
[2017-12-20] MEDS ORDERED: (PENDING PHARMACY ID) (Prazosin Hcl [Minipress] 2 MG) PO SCH (10:15)
[2017-12-20] MEDS: FAMOTIDINE 20 MG TABLET PO SCH ×2 (10:15→22:04)
[2017-12-20] MEDS: ISOSORBIDE MONONITRATE 30 MG TAB.ER.24H PO SCH (10:16)
[2017-12-20] MEDS: FLUTICASONE/SALMETEROL DISKUS 500-50 MCG/DOSE IH SCH ×2 (10:17→22:07)
[2017-12-20] MEDS: TORSEMIDE 20 MG TABLET PO SCH (11:26)
[2017-12-20] MEDS: AZITHROMYCIN 500 MG in DEXTROSE 5%-WATER 250 ML IV SCH (11:26)
[2017-12-20] MEDS: INSULIN LISPRO 100 UNIT/ML 3 ML VIAL SUBCUT PRN ×2 (11:26→22:12)
[2017-12-20] MEDS: METOPROLOL SUCCINATE 25 MG TAB.SR.24H PO SCH (11:27)
[2017-12-20] MEDS: METOLAZONE 2.5 MG TABLET PO SCH (11:27)
[2017-12-20 11:50] LABS: HEMATOCRIT 29.3 % (37.9-51.0); HEMOGLOBIN 9.8 g/dL (13.5-17.0); MEAN CORPUSCULAR HEMOGLOBIN 29.1 pg (27.0-33.4); MEAN CORPUSCULAR HGB CONC 33.3 g/dL (32.0-36.0); MEAN CORPUSCULAR VOLUME 88 fl (80-97); PLATELET COUNT 117 10^3/uL (150-450); RED BLOOD COUNT 3.35 10^6/uL (4.35-5.55); RED CELL DISTRIBUTION WIDTH 16.7 % (11.5-14.0); WHITE BLOOD COUNT 8.6 10^3/uL (4.0-10.5)
[2017-12-20 11:58] LABS: INTERNATIONAL RATION (INR) 1.12; PARTIAL THROMBOPLASTIN TIME 32.6 SEC (23.5-35.8); PROTHROMBIN TIME 14.9 SEC (11.4-15.4)
--- NOTE | 2017-12-20 16:17 | PDOC PROGRESS REPORT ---
Subjective Progress Note for:: 12/20/17 Subjective:: 77-year-old gentleman with past medical history of CHF, EF unknown Chronic kidney disease with a dialysis access catheter not yet initiated on dialysis. COPD Coronary artery disease status post prior myocardial infarction Hypertension Hyperlipidemia Type 2 diabetes GERD Depression He presented to the hospital with fever cough and confusion. He was found to have a fever and was hypoxic with sats in the 70s on room air. The patient was diagnosed with sepsis and started on Rocephin and azithromycin for pneumonia. He reportedly had a negative stress test in January 2018. Feels better today. Home meds including Torsemide and Metolazone have been restarted. Reason For Visit: PNEUMONIA ACUTE RESPIRATORY FAILURE WITH Physical Exam Vital Signs: Temp Pulse Resp BP Pulse Ox 98.6 F 68 18 148/48 H 96 12/20/17 11:24 12/20/17 15:52 12/20/17 15:52 12/20/17 11:24 12/20/17 15:52 Intake & Output 12/19/17 12/20/17 12/21/17 06:59 06:59 06:59 Intake Total 330 830 237 Balance 330 830 237 Weight 118.1 kg 117.7 kg General appearance: PRESENT: no acute distress Head exam: PRESENT: normocephalic Mouth exam: PRESENT: moist Respiratory exam: PRESENT: crackles, symmetrical, unlabored Cardiovascular exam: PRESENT: RRR GI/Abdominal exam: PRESENT: normal bowel sounds, soft. ABSENT: tenderness Rectal exam: PRESENT: deferred Extremities exam: PRESENT: other - chronic venous stasis changes b/l legs. ABSENT: pedal edema Neurological exam: PRESENT: alert, awake, oriented to person Psychiatric exam: PRESENT: appropriate affect Results Laboratory Results: 12/20/17 11:36 12/20/17 11:36 12/20/17 12/20/17 12/20/17 06:00 06:00 11:36 WBC 8.4 8.6 RBC 3.60 L 3.35 L Hgb 10.1 L 9.8 L Hct 31.5 L 29.3 L MCV 87 88 MCH 28.0 29.1 MCHC 32.1 33.3 RDW 16.5 H 16.7 H Plt Count 118 L 117 L Sodium 139.8 Potassium 4.0 Chloride 100 Carbon Dioxide 34 H Anion Gap 6 BUN 50 H Creatinine 2.81 H Est GFR ( Amer) 27 L Est GFR (Non-Af Amer) 22 L Glucose 156 H Calcium 8.3 L Phosphorus 3.6 Magnesium 2.1 12/20/17 11:36 WBC RBC Hgb Hct MCV MCH MCHC RDW Plt Count Sodium Potassium Chloride Carbon Dioxide Anion Gap BUN Creatinine 2.72 H Est GFR ( Amer) 28 L Est GFR (Non-Af Amer) 23 L Glucose Calcium Phosphorus Magnesium 12/20/17 11:36 NT-Pro-B Natriuret Pep [id number] H Impressions: Chest X-Ray 12/18/17 09:55 IMPRESSION: Minimal right basilar densities most consistent with atelectatic changes although I cannot exclude a minimal infiltrate. Remaining lung nunn are clear. Other findings as noted above Assessment & Plan - Diagnosis (1) Pneumonia Qualifiers: Pneumonia type: due to unspecified organism Laterality: right Lung location: lower lobe of lung Qualified Code(s): J18.1 - Lobar pneumonia, unspecified organism Is this a current diagnosis for this admission?: Yes Plan: Day 3 of Rocephin and Azithromycin. Follow up on blood cultures. Check sputum cultures. (2) Sepsis Qualifiers: Sepsis type: sepsis due to unspecified organism Qualified Code(s): A41.9 - Sepsis, unspecified organism Is this a current diagnosis for this admission?: Yes Plan: Due to R lower lobe pneumonia. Management as above (3) Diabetes Qualifiers: Diabetes mellitus type: type 2 Diabetes mellitus complication status: with diabetic arthropathy Is this a current diagnosis for this admission?: Yes Plan: Insulin sliding scale (4) CAD (coronary artery disease) Is this a current diagnosis for this admission?: Yes Plan: Continue outpatient meds including Aspirin, Norvasc, Metoprolol, Imdur, Simvastatin (5) Depression Is this a current diagnosis for this admission?: Yes Plan: Continue outpatient meds (6) COPD (chronic obstructive pulmonary disease) Is this a current diagnosis for this admission?: Yes Plan: Continue Advair, nebs prn (7) BPH (benign prostatic hyperplasia) Is this a current diagnosis for this admission?: Yes Plan: Continue outpatient meds (8) CKD (chronic kidney disease) stage 4, GFR 15-29 ml/min Is this a current diagnosis for this admission?: Yes Plan: Stable - Time Time Spent with patient: 25-34 minutes
[2017-12-20] MEDS: RISPERIDONE 1 MG TABLET PO SCH (17:09)
[2017-12-20] MEDS: FINASTERIDE 5 MG TABLET PO SCH (17:09)
[2017-12-20] MEDS: AMLODIPINE BESYLATE 10 MG TABLET PO SCH (17:09)
[2017-12-20] MEDS: CETIRIZINE 10 MG TABLET PO SCH (17:10)
--- NOTE | 2017-12-20 18:10 | XCELERA REPORT ---
[address] [address] Transthoracic Echocardiogram Report Name: LAURO CAI Age: 77 yrs Gender: Male : 1940 Patient Status: Inpatient Patient Location: [address] [place] [address] Study Date: 12/20/2017 10:39 AM Procedure: A two-dimensional transthoracic echocardiogram with color flow and Doppler was performed. Study Quality: Technically suboptimal. The study was technically difficult with many images being suboptimal in quality. Reason For Study: LV function / CHF History: LV function / CHF. Ordering Physician: LOW MARTINES Performed By: Xiomara Cabrera Interpretation Summary The left ventricle is normal in size. There is moderate concentric left ventricular hypertrophy. LV EF is > than 60% Left ventricular systolic function is normal. Doppler measurements suggest normal left ventricular diastolic function The left ventricular wall motion is normal. There is no thrombus. The left atrium is mildly dilated. The interatrial septum is intact with no evidence for an atrial septal defect. There is no evidence of mitral valve prolapse. There is no mitral valve stenosis. There is no mitral regurgitation noted. There is mild aortic stenosis There is a peak gradient of 19 mm of Hg. No aortic regurgitation is present. There is no tricuspid stenosis. Possible trace MR.Unable to calculate RVSP due to insufficient TR jet. There is no pericardial effusion. MMode/2D Measurements & Calculations RVDd: 3.0 cm LVIDd: 4.8 cmFS: 35.0 % Ao root diam: 2.7 cm IVSd: 1.8 cm LVIDs: 3.1 cmEDV(Teich): 106.4 ml Ao root area: 5.8 cm2 LVPWd: 1.4 cmESV(Teich): 38.1 ml EF(Teich): 64.2 % LVOT diam: 1.6 cm LVOT area: 2.1 cm2 Doppler Measurements & Calculations MV E max cristel: MV dec slope: Ao V2 max: LV V1 max P.5 cm/sec 223.3 cm/sec 4.5 mmHg MV A max cristel: 460.1 cm/sec2 Ao max PG: LV V1 mean P.3 cm/sec MV dec time: 20.0 mmHg 4.7 mmHg MV E/A: 1.2 0.34 sec Ao V2 mean: LV V1 max: 159.0 cm/sec 76.7 cm/sec Ao mean PG: LV V1 mean: 11.3 mmHg 99.4 cm/sec Ao V2 VTI: 46.7 cmLV V1 VTI: 35.7 cm MARY(I,D): 1.6 cm2 MARY(V,D): 0.71 cm2 SV(LVOT): 74.4 ml PA V2 max: 110.0 cm/sec PA max P.9 mmHg Left Ventricle The left ventricle is normal in size. There is moderate concentric left ventricular hypertrophy. LV EF is > than 60%. Left ventricular systolic function is normal. Doppler measurements suggest normal left ventricular diastolic function. The left ventricular wall motion is normal. There is no thrombus. There is no ventricular septal defect visualized. Right Ventricle The right ventricle is not well visualized secondary to technical limitations. The right ventricle is grossly normal size. Atria The right atrium is normal. The left atrium is mildly dilated. The interatrial septum is intact with no evidence for an atrial septal defect. Mitral Valve There is no evidence of mitral valve prolapse. There is no vegetation seen on the mitral valve. There is no mitral valve stenosis. There is no mitral regurgitation noted. Aortic Valve There is no aortic valvular vegetation. There is mild aortic stenosis. There is a peak gradient of 19 mm of Hg. No aortic regurgitation is present. Tricuspid Valve There is no tricuspid stenosis. Possible trace MR.Unable to calculate RVSP due to insufficient TR jet. Pulmonic Valve There is no pulmonic valvular stenosis. There is no pulmonic valvular regurgitation. Great Vessels The aortic root is not well visualized. Effusions There is no pericardial effusion. : LOW MARTINES > Denisse Martin
[2017-12-20] MEDS: SIMVASTATIN 10 MG TABLET PO SCH (22:05)
[2017-12-20] MEDS: ESCITALOPRAM OXALATE 10 MG TABLET PO SCH (22:05)
[2017-12-21] MEDS: GABAPENTIN 300 MG CAPSULE PO SCH ×3 (05:20→22:23)
[2017-12-21] MEDS: IPRATROPIUM/ALBUTEROL 0.5-2.5 MG/3 ML AMPUL NEB SCH ×4 (08:14→23:45)
[2017-12-21] MEDS: INSULIN LISPRO 100 UNIT/ML 3 ML VIAL SUBCUT PRN ×4 (08:47→22:19)
[2017-12-21] MEDS: FAMOTIDINE 20 MG TABLET PO SCH ×2 (09:37→22:23)
[2017-12-21] MEDS: FERROUS SULFATE 325 MG TABLET PO SCH (09:37)
[2017-12-21] MEDS: ISOSORBIDE MONONITRATE 30 MG TAB.ER.24H PO SCH (09:37)
[2017-12-21] MEDS: FLUTICASONE/SALMETEROL DISKUS 500-50 MCG/DOSE IH SCH ×2 (09:37→22:24)
[2017-12-21] MEDS: CEFTRIAXONE SODIUM 1,000 MG in DEXTROSE 5%-WATER 50 ML IV SCH (09:37)
[2017-12-21] MEDS: LACTOBACILLUS ACIDOPHILUS 250 MG TAB PO SCH ×2 (09:38→17:39)
[2017-12-21] MEDS: MULTIVITAMIN TABLET PO SCH (09:38)
[2017-12-21] MEDS: GUAIFENESIN 600 MG TABLET.SA PO SCH ×2 (09:38→22:23)
[2017-12-21] MEDS: ASPIRIN 81 MG TABLET, ENT COATED PO SCH (09:38)
[2017-12-21] MEDS: AZITHROMYCIN 500 MG in DEXTROSE 5%-WATER 250 ML IV SCH (10:42)
[2017-12-21] MEDS: METOLAZONE 2.5 MG TABLET PO SCH (12:16)
[2017-12-21] MEDS: TORSEMIDE 20 MG TABLET PO SCH (12:16)
[2017-12-21] MEDS: METOPROLOL SUCCINATE 25 MG TAB.SR.24H PO SCH (12:16)
[2017-12-21] MEDS ORDERED: BISACODYL 10 MG SUPP.RECT PR ONE (15:19)
[2017-12-21] MEDS: AMLODIPINE BESYLATE 10 MG TABLET PO SCH (17:38)
[2017-12-21] MEDS: FINASTERIDE 5 MG TABLET PO SCH (17:38)
[2017-12-21] MEDS: SENNOSIDES/DOCUSATE 8.6-50 MG 1 EACH TABLET PO SCH (17:38)
[2017-12-21] MEDS: CETIRIZINE 10 MG TABLET PO SCH (17:38)
[2017-12-21] MEDS: RISPERIDONE 1 MG TABLET PO SCH (17:39)
--- NOTE | 2017-12-21 20:05 | PDOC PROGRESS REPORT ---
Subjective Progress Note for:: 12/21/17 Subjective:: Patient is breathing better, no chest pain. He does not really remember his episode of confusion last night. He does remember getting upset with his son. No abdominal pain. Feeling weak. He thinks overall he is getting better. Reason For Visit: PNEUMONIA ACUTE RESPIRATORY FAILURE WITH Physical Exam Vital Signs: Temp Pulse Resp BP Pulse Ox 98.7 F 62 16 129/74 H 98 12/21/17 15:30 12/21/17 16:35 12/21/17 16:35 12/21/17 15:30 12/21/17 16:35 Intake & Output 12/20/17 12/21/17 12/22/17 06:59 06:59 06:59 Intake Total 830 2188 793 Output Total 0 Balance 830 2188 793 Weight 117.7 kg 118.9 kg General appearance: PRESENT: no acute distress, cooperative Head exam: PRESENT: atraumatic, normocephalic Eye exam: PRESENT: EOMI Mouth exam: PRESENT: tongue midline Respiratory exam: PRESENT: decreased breath sounds, unlabored. ABSENT: rales, rhonchi, wheezes Cardiovascular exam: PRESENT: RRR. ABSENT: systolic murmur Pulses: PRESENT: normal radial pulses GI/Abdominal exam: PRESENT: soft. ABSENT: distended, firm, guarding, tenderness Neurological exam: PRESENT: alert, awake, oriented to person, oriented to place , oriented to situation, CN II-XII grossly intact Psychiatric exam: PRESENT: appropriate affect. ABSENT: anxious Skin exam: PRESENT: dry, warm, other - Patient has small open area on left foot , significant diabetic neuropathy, mild erythema over the left distal leg Results Laboratory Results: 12/20/17 11:36 12/20/17 11:36 12/20/17 11:36 NT-Pro-B Natriuret Pep [id number] H Impressions: Chest X-Ray 12/18/17 09:55 IMPRESSION: Minimal right basilar densities most consistent with atelectatic changes although I cannot exclude a minimal infiltrate. Remaining lung nunn are clear. Other findings as noted above Assessment & Plan - Diagnosis (1) Agitation Is this a current diagnosis for this admission?: Yes Plan: Patient had an episode of confusion and agitation overnight. We have added fall precautions. Will try to avoid medications for now. I think it was related to acute hospital related delirium, acute metabolic encephalopathy. (2) Pneumonia Qualifiers: Pneumonia type: due to unspecified organism Laterality: right Lung location: lower lobe of lung Qualified Code(s): J18.1 - Lobar pneumonia, unspecified organism Is this a current diagnosis for this admission?: Yes Plan: Clinically improving. Continue ceftriaxone and azithromycin and monitor clinically. (3) Acute on chronic renal failure Is this a current diagnosis for this admission?: Yes Plan: We will check basic metabolic panel in the morning to see if renal patient's renal function is back to baseline, he does have chronic kidney disease related to hypertension and diabetes. (4) Cellulitis Qualifiers: Site of cellulitis: extremity Site of cellulitis of extremity: lower extremity Laterality: left Qualified Code(s): L03.116 - Cellulitis of left lower limb Is this a current diagnosis for this admission?: Yes Plan: Left lower extremity cellulitis, possibly related to skin tear and a diabetic. He is on ceftriaxone. Will monitor again tomorrow and consider changing antibiotics if needed. (5) Diabetes Qualifiers: Diabetes mellitus type: type 2 Diabetes mellitus complication status: with diabetic arthropathy Is this a current diagnosis for this admission?: Yes Plan: Long-standing with complications, continue current care. (6) Diabetic foot ulcer Qualifiers: Diabetes mellitus type: type 2 Laterality: left Is this a current diagnosis for this admission?: Yes Plan: Very small lesion on left foot, no surrounding cellulitis or exudate. Will monitor. Patient has had chronic problems with diabetic foot ulcers. - Time Time Spent with patient: 25-34 minutes Medications reviewed and adjusted accordingly: Yes - Inpatient Certification Based on my medical assessment, after consideration of the patient's comorbidities, presenting symptoms, or acuity I expect that the services needed warrant INPATIENT care.: Yes I certify that my determination is in accordance with my understanding of Medicare's requirements for reasonable and necessary INPATIENT services [42 CFR 412.3e].: Yes Medical Necessity: Significant Comorbidiites Make Outpatient Treatment Too Risky , Need Close Monitoring Due to Risk of Patient Decompensation, Risk of Complication if Not Cared For in Hospital
[2017-12-21] MEDS: SIMVASTATIN 10 MG TABLET PO SCH (22:23)
[2017-12-21] MEDS: ESCITALOPRAM OXALATE 10 MG TABLET PO SCH (22:23)
[2017-12-22] MEDS: GABAPENTIN 300 MG CAPSULE PO SCH ×3 (06:12→22:34)
[2017-12-22 06:44] LABS: HEMATOCRIT 31.3 % (37.9-51.0); HEMOGLOBIN 10.3 g/dL (13.5-17.0); MEAN CORPUSCULAR HEMOGLOBIN 28.7 pg (27.0-33.4); MEAN CORPUSCULAR HGB CONC 32.9 g/dL (32.0-36.0); MEAN CORPUSCULAR VOLUME 87 fl (80-97); PLATELET COUNT 135 10^3/uL (150-450); RED BLOOD COUNT 3.59 10^6/uL (4.35-5.55); RED CELL DISTRIBUTION WIDTH 16.3 % (11.5-14.0); WHITE BLOOD COUNT 7.1 10^3/uL (4.0-10.5)
[2017-12-22 06:56] LABS: ANION GAP 11 (5-19); BLOOD UREA NITROGEN 66 mg/dL (7-20); CALCIUM 8.5 mg/dL (8.4-10.2); CARBON DIOXIDE 33 mmol/L (22-30); CHLORIDE 96 mmol/L (98-107); GLUCOSE 161 mg/dL (75-110); POTASSIUM 3.9 mmol/L (3.6-5.0); SODIUM 140.4 mmol/L (137-145)
[2017-12-22] MEDS: IPRATROPIUM/ALBUTEROL 0.5-2.5 MG/3 ML AMPUL NEB SCH ×2 (08:46→15:54)
[2017-12-22] MEDS: AZITHROMYCIN 500 MG in DEXTROSE 5%-WATER 250 ML IV SCH (10:18)
[2017-12-22] MEDS: CEFTRIAXONE SODIUM 1,000 MG in DEXTROSE 5%-WATER 50 ML IV SCH (10:19)
[2017-12-22] MEDS: LACTOBACILLUS ACIDOPHILUS 250 MG TAB PO SCH ×2 (10:20→17:10)
[2017-12-22] MEDS: SENNOSIDES/DOCUSATE 8.6-50 MG 1 EACH TABLET PO SCH ×2 (10:20→17:10)
[2017-12-22] MEDS: FAMOTIDINE 20 MG TABLET PO SCH ×2 (10:21→22:33)
[2017-12-22] MEDS: ISOSORBIDE MONONITRATE 30 MG TAB.ER.24H PO SCH (10:21)
[2017-12-22] MEDS: GUAIFENESIN 600 MG TABLET.SA PO SCH ×2 (10:21→22:35)
[2017-12-22] MEDS: FERROUS SULFATE 325 MG TABLET PO SCH (10:21)
[2017-12-22] MEDS: MULTIVITAMIN TABLET PO SCH (10:21)
[2017-12-22] MEDS: ASPIRIN 81 MG TABLET, ENT COATED PO SCH (10:21)
[2017-12-22] MEDS: FLUTICASONE/SALMETEROL DISKUS 500-50 MCG/DOSE IH SCH ×2 (10:24→22:36)
[2017-12-22] MEDS: TORSEMIDE 20 MG TABLET PO SCH (12:16)
[2017-12-22] MEDS: METOPROLOL SUCCINATE 25 MG TAB.SR.24H PO SCH (12:17)
[2017-12-22] MEDS: METOLAZONE 2.5 MG TABLET PO SCH (12:17)
--- NOTE | 2017-12-22 15:03 | PDOC PROGRESS REPORT ---
Subjective Progress Note for:: 12/22/17 Subjective:: Pt was a bit difficult to arouse. Once he awakened he was feeling good, no CP or SOB, bretahing well today, no fever of chills, eating ok, wants to get out of bed today. Reason For Visit: PNEUMONIA ACUTE RESPIRATORY FAILURE WITH Physical Exam Vital Signs: Temp Pulse Resp BP Pulse Ox 99.0 F 65 22 H 177/56 H 97 12/22/17 11:33 12/22/17 11:33 12/22/17 11:33 12/22/17 11:33 12/22/17 11:33 Intake & Output 12/21/17 12/22/17 12/23/17 06:59 06:59 06:59 Intake Total 2188 918 Output Total 0 Balance 2188 918 Weight 118.9 kg General appearance: PRESENT: no acute distress, cooperative, obese Head exam: PRESENT: atraumatic, normocephalic Eye exam: ABSENT: conjunctival injection, scleral icterus Ear exam: PRESENT: normal external ear exam Mouth exam: PRESENT: moist Respiratory exam: PRESENT: decreased breath sounds, rhonchi. ABSENT: rales, unlabored, wheezes Cardiovascular exam: PRESENT: RRR. ABSENT: systolic murmur Pulses: PRESENT: normal radial pulses GI/Abdominal exam: PRESENT: normal bowel sounds, soft. ABSENT: distended, firm , guarding, tenderness Extremities exam: PRESENT: other - There is some joint deformities over the bilateral feet. No infected open wounds, patient has history significant for this. Neurological exam: PRESENT: oriented to person, oriented to place, oriented to situation, CN II-XII grossly intact. ABSENT: aphasic Psychiatric exam: PRESENT: appropriate affect. ABSENT: anxious Skin exam: PRESENT: dry, warm, other - Cellulitis on distal left leg yesterday is improved today Results Laboratory Results: 12/22/17 06:15 12/22/17 06:15 12/22/17 12/22/17 06:15 06:15 WBC 7.1 RBC 3.59 L Hgb 10.3 L Hct 31.3 L MCV 87 MCH 28.7 MCHC 32.9 RDW 16.3 H Plt Count 135 L Sodium 140.4 Potassium 3.9 Chloride 96 L Carbon Dioxide 33 H Anion Gap 11 BUN 66 H Creatinine 3.14 H Est GFR ( Amer) 23 L Est GFR (Non-Af Amer) 19 L Glucose 161 H Calcium 8.5 12/20/17 11:36 NT-Pro-B Natriuret Pep 39412 H Impressions: Chest X-Ray 12/18/17 09:55 IMPRESSION: Minimal right basilar densities most consistent with atelectatic changes although I cannot exclude a minimal infiltrate. Remaining lung nunn are clear. Other findings as noted above Assessment & Plan - Diagnosis (1) Agitation Is this a current diagnosis for this admission?: Yes Plan: She had another episode of agitation last night. No dangerous episodes. Will continue with fall precautions and monitor for safety. (2) Pneumonia Qualifiers: Pneumonia type: due to unspecified organism Laterality: right Lung location: lower lobe of lung Qualified Code(s): J18.1 - Lobar pneumonia, unspecified organism Is this a current diagnosis for this admission?: Yes Plan: She has received 4 days of azithromycin and this will be discontinued, will discontinue ceftriaxone and start oral Cefpodoxime 200 mg p.o. every 12 hours. (3) Acute on chronic renal failure Is this a current diagnosis for this admission?: Yes Plan: Renal function is fluctuating, patient has had dialysis access placed but dialysis has not yet been started. Continue to monitor. Avoid nephrotoxins and nephrotoxic dosing. Will recheck BUN and creatinine again in the morning. (4) Cellulitis Qualifiers: Site of cellulitis: extremity Site of cellulitis of extremity: lower extremity Laterality: left Qualified Code(s): L03.116 - Cellulitis of left lower limb Is this a current diagnosis for this admission?: Yes Plan: Improved with the ceftriaxone, will continue to monitor and patient is now on Cefpodoxime. (5) Diabetes Qualifiers: Diabetes mellitus type: type 2 Diabetes mellitus complication status: with diabetic arthropathy Is this a current diagnosis for this admission?: Yes Plan: CBGs reasonably well controlled. Continue current care. (6) Diabetic foot ulcer Qualifiers: Diabetes mellitus type: type 2 Laterality: left Is this a current diagnosis for this admission?: Yes Plan: A small lesion. Continue to monitor. No cellulitis surrounding. No exudate. (7) Elevated troponin Is this a current diagnosis for this admission?: Yes Plan: Thought to be related to underlying pulmonary process. Patient recently had a stress test. Will recheck troponin just to make sure it trended down appropriately. - Time Time Spent with patient: 25-34 minutes Medications reviewed and adjusted accordingly: Yes - Inpatient Certification Based on my medical assessment, after consideration of the patient's comorbidities, presenting symptoms, or acuity I expect that the services needed warrant INPATIENT care.: Yes I certify that my determination is in accordance with my understanding of Medicare's requirements for reasonable and necessary INPATIENT services [42 CFR 412.3e].: Yes Medical Necessity: Significant Comorbidiites Make Outpatient Treatment Too Risky , Risk of Complication if Not Cared For in Hospital
[2017-12-22] MEDS: RISPERIDONE 1 MG TABLET PO SCH (17:10)
[2017-12-22] MEDS: CEFPODOXIME 200 MG TABLET PO SCH (17:10)
[2017-12-22] MEDS: FINASTERIDE 5 MG TABLET PO SCH (17:10)
[2017-12-22] MEDS: AMLODIPINE BESYLATE 10 MG TABLET PO SCH (17:11)
[2017-12-22] MEDS: CETIRIZINE 10 MG TABLET PO SCH (17:11)
[2017-12-22] MEDS ORDERED: CEFPODOXIME 200 MG TABLET PO SCH (22:00)
[2017-12-22] MEDS: HEPARIN SOD (PORCINE) 5,000 UNIT/ML 1 ML SYRINGE SUBCUT SCH (22:33)
[2017-12-22] MEDS: ESCITALOPRAM OXALATE 10 MG TABLET PO SCH (22:34)
[2017-12-22] MEDS: SIMVASTATIN 10 MG TABLET PO SCH (22:34)
[2017-12-23] MEDS: IPRATROPIUM/ALBUTEROL 0.5-2.5 MG/3 ML AMPUL NEB SCH ×3 (00:16→16:18)
[2017-12-23 06:48] LABS: ANION GAP 15 (5-19); BLOOD UREA NITROGEN 85 mg/dL (7-20); CALCIUM 8.7 mg/dL (8.4-10.2); CARBON DIOXIDE 33 mmol/L (22-30); CHLORIDE 95 mmol/L (98-107); GLUCOSE 152 mg/dL (75-110); POTASSIUM 3.8 mmol/L (3.6-5.0); SODIUM 142.5 mmol/L (137-145)
[2017-12-23] MEDS: GABAPENTIN 300 MG CAPSULE PO SCH ×3 (09:56→22:13)
[2017-12-23] MEDS: HEPARIN SOD (PORCINE) 5,000 UNIT/ML 1 ML SYRINGE SUBCUT SCH ×3 (09:56→22:16)
[2017-12-23] MEDS: GUAIFENESIN 600 MG TABLET.SA PO SCH ×2 (10:23→22:13)
[2017-12-23] MEDS: ISOSORBIDE MONONITRATE 30 MG TAB.ER.24H PO SCH (10:23)
[2017-12-23] MEDS: ASPIRIN 81 MG TABLET, ENT COATED PO SCH (10:23)
[2017-12-23] MEDS: FAMOTIDINE 20 MG TABLET PO SCH ×2 (10:23→22:13)
[2017-12-23] MEDS: MULTIVITAMIN TABLET PO SCH (10:24)
[2017-12-23] MEDS: LACTOBACILLUS ACIDOPHILUS 250 MG TAB PO SCH ×2 (10:24→18:34)
[2017-12-23] MEDS: FERROUS SULFATE 325 MG TABLET PO SCH (10:25)
[2017-12-23] MEDS: FLUTICASONE/SALMETEROL DISKUS 500-50 MCG/DOSE IH SCH ×2 (10:26→22:15)
[2017-12-23] MEDS: SENNOSIDES/DOCUSATE 8.6-50 MG 1 EACH TABLET PO SCH ×2 (10:27→18:34)
[2017-12-23] MEDS: METOPROLOL SUCCINATE 25 MG TAB.SR.24H PO SCH (11:43)
[2017-12-23] MEDS: TORSEMIDE 20 MG TABLET PO SCH (11:43)
[2017-12-23] MEDS: METOLAZONE 2.5 MG TABLET PO SCH (11:43)
[2017-12-23] MEDS ORDERED: ALBUTEROL SULFATE HFA (90 MCG/PUFF) 8 GM MDI (1 MDI/ER DISP) IH PRN (13:35)
[2017-12-23] MEDS ORDERED: FUROSEMIDE 40 MG TABLET PO SCH (13:45)
[2017-12-23] MEDS ORDERED: FUROSEMIDE 40 MG TABLET PO ONE (14:00)
[2017-12-23] MEDS ORDERED: ALBUTEROL SULFATE HFA (90 MCG/PUFF) 200 PUFF/8.5 GM MDI IH PRN (14:12)
--- NOTE | 2017-12-23 18:01 | PDOC PROGRESS REPORT ---
Subjective Progress Note for:: 12/23/17 Subjective:: pt feels a lot better, breathing fine, cough, no fevers or chills. No nausea vomiting. He is eating and drinking well. He is up in a bedside chair and is anxious to get home. He is excited to work with physical therapy tomorrow so he can get stronger. He would like to go home versus rehab. Feels like he is getting close to his baseline. Reason For Visit: PNEUMONIA ACUTE RESPIRATORY FAILURE WITH Physical Exam Vital Signs: Temp Pulse Resp BP Pulse Ox 98.0 F 70 16 175/57 H 95 12/23/17 07:52 12/23/17 16:18 12/23/17 16:18 12/23/17 07:52 12/23/17 16:18 Intake & Output 12/22/17 12/23/17 12/24/17 06:59 06:59 06:59 Intake Total 918 1222 589 Output Total 0 Balance 918 1222 589 Weight 116.4 kg General appearance: PRESENT: no acute distress, cooperative Head exam: PRESENT: atraumatic, normocephalic Eye exam: PRESENT: conjunctival injection, EOMI. ABSENT: scleral icterus Ear exam: PRESENT: normal external ear exam Mouth exam: PRESENT: moist Respiratory exam: PRESENT: decreased breath sounds, unlabored. ABSENT: rales, rhonchi, wheezes Cardiovascular exam: PRESENT: RRR, systolic murmur Pulses: PRESENT: normal radial pulses GI/Abdominal exam: PRESENT: normal bowel sounds, soft. ABSENT: distended, firm , guarding, tenderness Musculoskeletal exam: PRESENT: ambulatory Neurological exam: PRESENT: alert, awake, oriented to person, oriented to place , oriented to situation, CN II-XII grossly intact Psychiatric exam: PRESENT: appropriate affect. ABSENT: anxious Skin exam: PRESENT: warm Results Laboratory Results: 12/22/17 06:15 12/23/17 06:03 12/23/17 06:03 Sodium 142.5 Potassium 3.8 Chloride 95 L Carbon Dioxide 33 H Anion Gap 15 BUN 85 H Creatinine 3.76 H Est GFR ( Amer) 19 L Est GFR (Non-Af Amer) 16 L Glucose 152 H Calcium 8.7 12/18/17 12:24 Blood Blood Culture - Final NO GROWTH IN 5 DAYS 12/20/17 12/22/17 12/22/17 11:36 15:21 15:21 Troponin I 0.335 NT-Pro-B Natriuret Pep 30328 H 7390 H Impressions: Chest X-Ray 12/18/17 09:55 IMPRESSION: Minimal right basilar densities most consistent with atelectatic changes although I cannot exclude a minimal infiltrate. Remaining lung nunn are clear. Other findings as noted above Assessment & Plan - Diagnosis (1) Agitation Is this a current diagnosis for this admission?: Yes Plan: Resolved. Patient did well last night. We will continue to monitor for safety. No medication intervention indicated now. Seems to have been more of a sundowning type syndrome. (2) Pneumonia Qualifiers: Pneumonia type: due to unspecified organism Laterality: right Lung location: lower lobe of lung Qualified Code(s): J18.1 - Lobar pneumonia, unspecified organism Is this a current diagnosis for this admission?: Yes Plan: Significantly improved, have transition patient off of IV to oral cephalosporin. (3) Acute on chronic renal failure Is this a current diagnosis for this admission?: Yes Plan: Since renal function has been increasing over the last few days. I have restarted his Lasix. He is now on all of his diuretics and other medications. Will recheck renal function in the morning. (4) Cellulitis Qualifiers: Site of cellulitis: extremity Site of cellulitis of extremity: lower extremity Laterality: left Qualified Code(s): L03.116 - Cellulitis of left lower limb Is this a current diagnosis for this admission?: Yes Plan: Improving. This was seen over the left distal leg 2 days ago and seems to be improving with current antibiotic therapy. Probably secondary to microtears. (5) Diabetes Qualifiers: Diabetes mellitus type: type 2 Diabetes mellitus complication status: with diabetic arthropathy Is this a current diagnosis for this admission?: Yes Plan: Able, continue current care patient has advanced long-standing diabetes and has struggled with diabetic foot ulcers for years. (6) Elevated troponin Is this a current diagnosis for this admission?: Yes Plan: Trended downward. Likely type II MO. - Time Time Spent with patient: 15-24 minutes Medications reviewed and adjusted accordingly: Yes - Inpatient Certification Based on my medical assessment, after consideration of the patient's comorbidities, presenting symptoms, or acuity I expect that the services needed warrant INPATIENT care.: Yes I certify that my determination is in accordance with my understanding of Medicare's requirements for reasonable and necessary INPATIENT services [42 CFR 412.3e].: Yes Medical Necessity: Need Close Monitoring Due to Risk of Patient Decompensation, Risk of Complication if Not Cared For in Hospital
[2017-12-23] MEDS: AMLODIPINE BESYLATE 10 MG TABLET PO SCH (18:33)
[2017-12-23] MEDS: FINASTERIDE 5 MG TABLET PO SCH (18:33)
[2017-12-23] MEDS: CETIRIZINE 10 MG TABLET PO SCH (18:33)
[2017-12-23] MEDS: RISPERIDONE 1 MG TABLET PO SCH (18:33)
[2017-12-23] MEDS: CEFPODOXIME 200 MG TABLET PO SCH (18:34)
[2017-12-23] MEDS: SIMVASTATIN 10 MG TABLET PO SCH (22:14)
[2017-12-23] MEDS: ESCITALOPRAM OXALATE 10 MG TABLET PO SCH (22:14)
[2017-12-24] MEDS: IPRATROPIUM/ALBUTEROL 0.5-2.5 MG/3 ML AMPUL NEB SCH ×4 (00:15→23:01)
[2017-12-24] MEDS: HEPARIN SOD (PORCINE) 5,000 UNIT/ML 1 ML SYRINGE SUBCUT SCH ×3 (05:26→22:46)
[2017-12-24] MEDS: GABAPENTIN 300 MG CAPSULE PO SCH ×3 (06:12→22:44)
[2017-12-24 07:09] LABS: HEMATOCRIT 32.7 % (37.9-51.0); HEMOGLOBIN 10.7 g/dL (13.5-17.0); MEAN CORPUSCULAR HEMOGLOBIN 28.5 pg (27.0-33.4); MEAN CORPUSCULAR HGB CONC 32.9 g/dL (32.0-36.0); MEAN CORPUSCULAR VOLUME 87 fl (80-97); PLATELET COUNT 173 10^3/uL (150-450); RED BLOOD COUNT 3.76 10^6/uL (4.35-5.55); RED CELL DISTRIBUTION WIDTH 15.9 % (11.5-14.0); WHITE BLOOD COUNT 7.4 10^3/uL (4.0-10.5)
[2017-12-24 07:33] LABS: ANION GAP 18 (5-19); BLOOD UREA NITROGEN 93 mg/dL (7-20); CALCIUM 8.5 mg/dL (8.4-10.2); CARBON DIOXIDE 30 mmol/L (22-30); CHLORIDE 93 mmol/L (98-107); GLUCOSE 158 mg/dL (75-110); POTASSIUM 3.5 mmol/L (3.6-5.0); SODIUM 140.7 mmol/L (137-145)
--- NOTE | 2017-12-24 09:15 | Physician Advisory Note ---
Physician Advisor ProgressNote .: [facility] I have reviewed the medical record for this patient. Physician Advisor Statement: Nice documentation of ARF. Please consider documenting, if you agree (& continuing to document in each note and DCSummary): 1. "Chronic Kidney Disease (or, CRF) stage ___" [stage IV = GFR <30; pt's GFR baseline appears to be 20s to this reviewer] 2. "Pneumonia RLL, suspect gram-____ type given " [underlying COPD] - evidence for PNA dx already documented = cough, fever, tachypnea, orthopnea, SAMAYOA, SOB @rest, - [no tachycardia but pt on beta pelon to prevent that] 3. "Acute Hypoxemic & Hypercapneic Respiratory Failure on admission, evidenced by O2 sat 78% in Vilchis's position with tachypnea for EMS, accessory muscle use initially in ED on 3L O2 [at 09:55], ABG." 4. "Possible sepsis due to pneumonia, despite neg BCs, ruled out", or "Possible sepsis due to pneumonia, despite neg BCs, evidenced by ___". [Total GCS 14 on arrival - if not his baseline, tachypnea, ?ARF due to sepsis, ?Acute Resp Failure due to sepsis?, ?troponin elevation due to sepsis? ...] Thanks for your help in improving accuracy & specificity of documentation! MD Mamadou - If ?'s, feel free to text [phone].
[2017-12-24] MEDS: FLUTICASONE/SALMETEROL DISKUS 500-50 MCG/DOSE IH SCH ×2 (10:56→22:45)
[2017-12-24] MEDS: FERROUS SULFATE 325 MG TABLET PO SCH (10:57)
[2017-12-24] MEDS: ASPIRIN 81 MG TABLET, ENT COATED PO SCH (10:57)
[2017-12-24] MEDS: SENNOSIDES/DOCUSATE 8.6-50 MG 1 EACH TABLET PO SCH ×2 (10:57→17:11)
[2017-12-24] MEDS: MULTIVITAMIN TABLET PO SCH (10:58)
[2017-12-24] MEDS: ISOSORBIDE MONONITRATE 30 MG TAB.ER.24H PO SCH (10:58)
[2017-12-24] MEDS: GUAIFENESIN 600 MG TABLET.SA PO SCH ×2 (10:58→22:44)
[2017-12-24] MEDS: FAMOTIDINE 20 MG TABLET PO SCH ×2 (10:58→22:42)
[2017-12-24] MEDS: LACTOBACILLUS ACIDOPHILUS 250 MG TAB PO SCH ×2 (10:58→17:11)
[2017-12-24] MEDS: FUROSEMIDE 40 MG TABLET PO SCH (11:02)
[2017-12-24] MEDS: TORSEMIDE 20 MG TABLET PO SCH (11:11)
[2017-12-24] MEDS: METOLAZONE 2.5 MG TABLET PO SCH (11:11)
[2017-12-24] MEDS: METOPROLOL SUCCINATE 25 MG TAB.SR.24H PO SCH (11:12)
[2017-12-24] MEDS: INSULIN LISPRO 100 UNIT/ML 3 ML VIAL SUBCUT PRN (13:11)
[2017-12-24] MEDS: FINASTERIDE 5 MG TABLET PO SCH (17:10)
[2017-12-24] MEDS: CETIRIZINE 10 MG TABLET PO SCH (17:11)
[2017-12-24] MEDS: CEFPODOXIME 200 MG TABLET PO SCH (17:12)
[2017-12-24] MEDS: RISPERIDONE 1 MG TABLET PO SCH (17:12)
--- NOTE | 2017-12-24 17:40 | PROGRESS NOTE E ---
Progress Note NAME: LAURO CAI : 1940 AGE: 77Y DATE: 12/24/2017 ROOM: 332 SUBJECTIVE: The patient is lying in bed. He states he feels quite good today. The patient was actually to be discharged today; however, the patient's stated she could not care for him at home, and has elected to go to rehab, even though this was offered in the beginning. The patient has had no nausea, vomiting or diarrhea. No dizziness, chest pain. No fevers or chills. Patient has been afebrile. Blood pressure has been in good range, and the patient has not voiced any other concerns at this time. REVIEW OF SYSTEMS: The rest of the review of systems is negative. MEDICATIONS: Reviewed. OBJECTIVE: GENERAL: The patient is a 77-year-old male, who is awake, alert. He is oriented to person, place, time and situation. Verbal. He does not appear to be distressed. VITAL SIGNS: Temperature is 98.6, pulse 64, respirations 20, blood pressure 154/46, oxygen saturation is 95% on 2 liters nasal cannula. SKIN: Warm and dry. No rash. Not diaphoretic. HEENT: Pupils equal, round and reactive to light and accommodation. Conjunctiva pink. No evidence of JVP. CVS: Heart is regular. No rub. CHEST: Diminished, symmetrical, unlabored. ABDOMEN: Obese, soft, nontender. EXTREMITIES: No clubbing, cyanosis or edema. PSYCHIATRIC: Appropriate affect, pleasant mood. DIAGNOSTICS: Lab values are as follows: Hematology obtained on 12/24/2017: WBC is 7.4, hemoglobin is 10.7, hematocrit is 32.3, platelet count is 173,000. Chemistry obtained on 12/24/2017: Sodium is 140, potassium is 3.5, chloride is 93, carbon dioxide 30, BUN 93, creatinine is 3.63, glucose 158. Calcium is 8.5. IMPRESSION AND PLAN: 1. COMMUNITY-ACQUIRED LEFT LOWER LOBE PNEUMONIA. The patient responded very well to oral cephalosporin. Will continue this. 2. ACUTE ON CHRONIC HYPOXEMIC AND HYPERCAPNIC RESPIRATORY FAILURE. Appears improved. The patient may need continuous O2. The patient most likely will be on 2 liters on discharge to the facility. 3. CHRONIC KIDNEY DISEASE, STAGE IV. It appears the patient's baseline creatinine is in the 3.5 range. 4. ACUTE KIDNEY INJURY. The patient has been restarted on his Lasix. 5. CELLULITIS. Overall appears improved. 6. DIABETES MELLITUS, TYPE 2. This has been very poorly controlled and most likely the source of the patient's kidney dysfunction. Continue current regimen. 7. TROPONIN LEAK, MOST LIKELY JUST DEMAND ISCHEMIA. 8. SEPSIS, SECONDARY TO THE ABOVE. This is resolved. DISPOSITION: The patient is a FULL CODE. Pending patient's symptomatology and diagnostic findings, we will reevaluate. The patient can go to rehab as soon as a bed is available. He will be downgraded to a medical bed. Time spent on this followup, including assessment, plan, physical examination, patient education and review of records, is 35 minutes. DICTATING PHYSICIAN: USHA MITCHELL NP [id number] PHY#: [id number] ID: [id number] JOB#: [id number] ACCT: [id number] cc: >
[2017-12-24] MEDS ORDERED: AMLODIPINE BESYLATE 5 MG TABLET PO SCH (18:00)
[2017-12-24] MEDS: SIMVASTATIN 10 MG TABLET PO SCH (22:44)
[2017-12-24] MEDS: ESCITALOPRAM OXALATE 10 MG TABLET PO SCH (22:45)
--- NOTE | 2017-12-24 23:04 | DISCHARGE SUMMARY E ---
Discharge Summary NAME: LAURO CAI : 1940 AGE: 77Y ADMITTED: 12/18/2017 DISCHARGED: 12/24/2017 CODE STATUS: Full code. PRIMARY CARE PROVIDER: Nelson Jiang M.D. DISCHARGE DIAGNOSES: 1. Community acquired right lower lobe pneumonia. 2. Acute on stage 5 chronic kidney disease. 3. Left lower extremity cellulitis, much improved. 4. Diabetes mellitus type 2 in the obese. 5. Non-STEMI type 2. 6. Acute on chronic hypoxemic and hypercapnic respiratory failure back to baseline. 7. Sepsis present on admission which is resolved. DISCHARGE MEDICATIONS: 1. Toprol XL 25 mg p.o. q.a.m. 2. Mucinex 600 mg p.o. q.12 hours; 6 tablets, zero refills. 3. Zyrtec 10 mg p.o. q. hours of sleeps, 30 tablets with zero refills. 4. *------* 200 mg p.o. q. hour of sleep; 5 tablets, zero refills. 5. Probiotic 1 capsule p.o. daily. 6. Torsemide 20 mg p.o. q.p.m. 7. Zocor 20 mg p.o. q. hour of sleep. 8. Risperdal 1 mg p.o. q.p.m. 9. Minipress 2 mg p.o. b.i.d. 10. Potassium chloride 20 mEq p.o. daily. 11. Multivitamin 1 tablet p.o. daily. 12. Zaroxolyn 2.5 mg p.o. daily. 13. Tradjenta 5 mg p.o. daily. 14. Imdur 30 mg p.o. daily. 15. Neurontin 300 mg p.o. q.8 hours. 16. Lasix 40 mg p.o. daily. 17. Advair 500/50 one puff inhalation q.12 hours. 18. Proscar 5 mg p.o. q.p.m. 19. Ferrous sulfate 325 mg p.o. daily. 20. Lexapro 20 mg p.o. q. hour of sleep. 21. Aspirin 81 mg p.o. daily. 22. Norvasc 10 mg p.o. q.p.m. 23. ProAir HFA 2 puffs inhalation q.4 hours p.r.n. ACTIVITY: As tolerated with home health. DIET: Diabetic, cardiac, renal conscious. CONDITION: Fair. DIAGNOSTICS: Lab values are as follows: hematology obtained on 12/24/2017; WBC 7.4, hemoglobin 10.7, hematocrit is 32.7, platelet count is 173,000. Coagulation obtained on 12/20/2017; PT is 14.9, INR is 1.12. ABG obtained on 12/18/2017; pH 7.29, pCO2 is 73, pO2 is 85, bicarb is 29.5. Venous blood gas obtained on 12/18/2017; pH of 7.26, pCO2 is 71.6, bicarb is 31.4. Chemistry obtained on 12/24/2017; sodium is 140, potassium 3.5, chloride is 95, carbon dioxide 30, BUN 93, creatinine 2.63, glucose 158, calcium is 8.5. Troponin is 0.335. Total bilirubin 0.2, AST 60, ALT 32, alk-phos 70, total protein 7.2, albumin 3.5. Urinalysis obtained on 12/18/2017; color yellow, appearance slightly cloudy, pH 5.0, specific gravity is 1.017, protein greater than 500, glucose 50, ketones negative, occult moderate, nitrite negative, BILI negative, urobilinogen is negative, leukocyte esterase is negative, WBC is 6, RBC is 5, bacteria trace, epithelial squamous cells less than 1, mucous rare. Microbiology: Blood cultures obtained on 12/18/2017 revealed no growth. Chest x-ray obtained on 12/18/2017 reveals minimal right basilar densities most consistent with atelectatic changes. Echocardiogram obtained on 12/20/2017 reveals an EF greater than 60%. EKG obtained on 12/18/2017 reveals sinus rhythm. PHYSICAL EXAMINATION: GENERAL: On examination the patient is a well-developed, reasonably nourished 77-year-old male who is awake, alert, and oriented to person, place, time, and situation. He is verbal, conversational, does not appear to be in any acute distress. VITAL SIGNS: Temperature is 98.6, pulse 64, respirations 20, blood pressure is 154/46, oxygen saturation is 95% on 2 liters nasal cannula. SKIN: Warm and dry. No rash. He is not diaphoretic. HEENT: Pupils equal, round, and react to light and accommodation. Conjunctivae pink. No jaundice. NECK: No JVP. CARDIOVASCULAR SYSTEM: Heart is regular. There is no rub. CHEST: Diminished, symmetrical, unlabored. ABDOMEN: Soft, nontender, obese, nondistended. EXTREMITIES: No clubbing, cyanosis, or edema. PSYCHIATRIC: Appropriate affect, pleasant mood. HISTORY OF PRESENT ILLNESS: The patient is a 77-year-old male with a past medical history of chronic obstructive pulmonary disease and chronic kidney disease. The patient presented to the emergency department with a chief complaint of fever, cough, confusion. The patient was found by EMS to have oxygen saturations in the 70s after being notified due to the patient having ongoing complaints at home of shortness of breath and cough which led his to call for help. Upon presentation to the emergency department the patient was found to have a fever of 101.2, found to be tachycardic, hypoxic as well. The patient was placed on a nonrebreather and did have some improvement of symptoms. The patient had been seen the night before at [facility] with complaints of cough and fever and his workup was done and the patient was discharged home. The patient did have findings on chest x-ray which was suggestive of pneumonia and the patient was referred for the hospitalist for admission and management. HOSPITAL COURSE: The patient was admitted to [facility]. The patient was placed on broad spectrum antibiotic coverage as well as supplemental O2 nebulizers. The patient did receive volume resuscitation for sepsis and the patient everyday had improvement of symptoms. The patient refused rehab placement citing that he wanted to be discharged home and the patient did participate with therapies. The patient has been transitioned to oral antibiotic coverage and is ready for discharge. DISCHARGE PLAN: The patient is advised to follow primary care provider within 1-2 weeks for hospital follow up. TIME SPENT: On this discharge including assessment and plan, physical examination, patient education, review of records is 25 minutes. DICTATING PHYSICIAN: USHA MITCHELL NP [id number] PHY#: [id number] ID: [id number] JOB#: [id number] ACCT: [id number] cc:Olivia ALMANZA NP >
[2017-12-25] MEDS: GABAPENTIN 300 MG CAPSULE PO SCH ×2 (06:49→13:11)
[2017-12-25] MEDS: HEPARIN SOD (PORCINE) 5,000 UNIT/ML 1 ML SYRINGE SUBCUT SCH ×2 (06:49→13:12)
[2017-12-25] MEDS: IPRATROPIUM/ALBUTEROL 0.5-2.5 MG/3 ML AMPUL NEB SCH ×2 (08:25→16:09)
[2017-12-25] MEDS: FLUTICASONE/SALMETEROL DISKUS 500-50 MCG/DOSE IH SCH (09:26)
[2017-12-25] MEDS: MULTIVITAMIN TABLET PO SCH (09:27)
[2017-12-25] MEDS: FAMOTIDINE 20 MG TABLET PO SCH (09:27)
[2017-12-25] MEDS: SENNOSIDES/DOCUSATE 8.6-50 MG 1 EACH TABLET PO SCH (09:27)
[2017-12-25] MEDS: LACTOBACILLUS ACIDOPHILUS 250 MG TAB PO SCH (09:27)
[2017-12-25] MEDS: ASPIRIN 81 MG TABLET, ENT COATED PO SCH (09:27)
[2017-12-25] MEDS: GUAIFENESIN 600 MG TABLET.SA PO SCH (09:28)
[2017-12-25] MEDS: ISOSORBIDE MONONITRATE 30 MG TAB.ER.24H PO SCH (09:28)
[2017-12-25] MEDS: FERROUS SULFATE 325 MG TABLET PO SCH (09:28)
[2017-12-25] MEDS: FUROSEMIDE 40 MG TABLET PO SCH (09:28)
[2017-12-25] MEDS: METOLAZONE 2.5 MG TABLET PO SCH (13:10)
[2017-12-25] MEDS: METOPROLOL SUCCINATE 25 MG TAB.SR.24H PO SCH (13:10)
[2017-12-25] MEDS: TORSEMIDE 20 MG TABLET PO SCH (13:10)
--- NOTE | 2017-12-25 15:01 | PDOC DISCHARGE SUMMARY ---
General - Admit/Disc Date/PCP Admission Date/Primary Care Provider: 12/18/17 11:50 JERAMY GUALLPA MD Discharge Date: 12/25/17 - Discharge Diagnosis (1) Sepsis Is this a current diagnosis for this admission?: Yes Summary: The patient had high fever, tachycardia, acute renal failure, hypoxia and evidence of infection. He had acute encephalopathy at the time of admission as well. His sepsis symptoms are resolved (2) Acute and chronic respiratory failure Is this a current diagnosis for this admission?: Yes Summary: He is back to his baseline oxygen requirements (3) Pneumonia Is this a current diagnosis for this admission?: Yes Summary: Concerns for gram negatives positives and atypicals. He will complete a course of antibiotic therapy (4) Acute encephalopathy Is this a current diagnosis for this admission?: Yes Summary: Secondary to sepsis. Resolved (5) Acute on chronic renal failure Is this a current diagnosis for this admission?: Yes Summary: Improved (6) Left leg cellulitis Is this a current diagnosis for this admission?: Yes Summary: Much improved by the time of discharge. (7) Diabetes Is this a current diagnosis for this admission?: Yes Summary: He will resume his home regimen (8) NSTEMI (non-ST elevated myocardial infarction) Is this a current diagnosis for this admission?: Yes Summary: This was a type II myocardial infarction secondary to his sepsis. (9) Anemia Is this a current diagnosis for this admission?: Yes Summary: Stable (10) Thrombocytopenia Is this a current diagnosis for this admission?: Yes Summary: Secondary to sepsis. Resolving (11) Hypokalemia Is this a current diagnosis for this admission?: Yes Summary: Repleted on the day of discharge (12) Obesity (BMI 30-39.9) Is this a current diagnosis for this admission?: Yes Summary: Dietary discretion is advised (13) Full code status Is this a current diagnosis for this admission?: Yes - Additional Information Resuscitation Status: Full Code Discharge Diet: As Tolerated, Cardiac Discharge Activity: Activity As Tolerated Prescriptions: Cefpodoxime Proxetil [Vantin 200 mg Tablet] 200 mg PO QPM #5 tablet Cetirizine HCl [Zyrtec 10 mg Tablet] 10 mg PO QPM #30 tablet Guaifenesin [Mucinex Sr 600 mg Tablet.sa] 600 mg PO Q12 #6 tablet.sa Home Medications: Albuterol Sulfate [Proair HFA] 2 puff IH Q4HP PRN 12/18/17 Amlodipine Besylate [Norvasc 10 mg Tablet] 10 mg PO QPM 12/18/17 Aspirin [Adult Low Dose Aspirin EC] 81 mg PO DAILY 12/18/17 Escitalopram Oxalate [Lexapro] 20 mg PO QHS 12/18/17 Ferrous Sulfate [Feosol 325 mg Tablet] 325 mg PO DAILY 12/18/17 Finasteride [Proscar 5 mg Tablet] 5 mg PO QPM 12/18/17 Fluticasone/Salmeterol [Advair 500-50 Diskus 28 Dose] 1 puff IH Q12 12/18/17 Furosemide [Lasix 40 mg Tablet] 40 mg PO DAILY 12/18/17 Gabapentin [Neurontin 300 mg Capsule] 300 mg PO Q8 12/18/17 Isosorbide Mononitrate [Imdur 30 mg Tablet.er] 30 mg PO DAILY 12/18/17 Linagliptin [Tradjenta] 5 mg PO DAILY 12/18/17 Metolazone [Zaroxolyn 2.5 mg Tablet] 2.5 mg PO DAILY 12/18/17 Multivitamin [Daily Multiple Vitamin] 1 tab PO DAILY 12/18/17 Potassium Chloride [Klor-Con M20] 20 meq PO DAILY 12/18/17 Prazosin HCl [Minipress] 2 mg PO BID 12/18/17 Risperidone [Risperdal 1 mg Tablet] 1 mg PO QPM 12/18/17 Simvastatin [Zocor 20 mg Tablet] 20 mg PO QHS 12/18/17 Torsemide [Demadex 20 mg Tablet] 20 mg PO QPM 12/18/17 l Gasseri/B Bifidum/B Longum [[facility] Capsule] 1 cap PO DAILY Cefpodoxime Proxetil [Vantin 200 mg Tablet] 200 mg PO QPM #5 tablet 12/24/17 Cetirizine HCl [Zyrtec 10 mg Tablet] 10 mg PO QPM #30 tablet 12/24/17 Guaifenesin [Mucinex Sr 600 mg Tablet.sa] 600 mg PO Q12 #6 tablet.sa 12/24/17 Metoprolol Succinate [Toprol Xl 25 mg Tab.sr] 25 mg PO QAM #0 12/24/17 History of Present Illness Patient complains of: Shortness of breath History of Present Illness: LAURO CAI is a 77 year old male who presented to the emergency room with increased shortness of breath and fever. Hospital Course Hospital Course: The patient is a pleasant 77-year-old male with a past medical history significant for chronic kidney disease stage V, and chronic obstructive pulmonary disease. The patient presented to the emergency room with fever cough and confusion. He was found by EMS to have oxygen saturations in the 70s. In the emergency room he was found to have a fever of 101.2, tachycardia and hypoxia. He was placed on a nonrebreather and did have improvement of his symptoms. The patient had findings on chest x-ray suggestive of pneumonia and the patient was referred for admission. The patient was admitted to an [facility] level of care. He was placed on broad-spectrum IV antibiotics as well as supplemental oxygen. He did receive volume resuscitation for sepsis and the patient had a slow but steady recovery. The patient refused rehab placement stating that he wanted to be discharged home and the patient did participate with all of his therapies. He has been transitioned to oral antibiotics at discharge. He will follow-up with his primary care for provider in 1-2 weeks. Physical Exam Vital Signs: Temp Pulse Resp BP Pulse Ox 97.5 F 87 18 146/48 H 100 12/25/17 13:27 12/25/17 13:27 12/25/17 13:27 12/25/17 13:27 12/25/17 13:27 Intake & Output 12/24/17 12/25/17 12/26/17 06:59 06:59 06:59 Intake Total 1693 842 839 Balance 1693 842 839 Weight 115.4 kg 115.2 kg General appearance: PRESENT: obese Head exam: PRESENT: atraumatic, normocephalic Mouth exam: PRESENT: moist, tongue midline Neck exam: ABSENT: carotid bruit, JVD, lymphadenopathy, thyromegaly Respiratory exam: PRESENT: clear to auscultation lachelle, other - He is diminished in the lower bases bilaterally. ABSENT: rales, rhonchi, wheezes Cardiovascular exam: PRESENT: RRR. ABSENT: diastolic murmur, rubs, systolic murmur GI/Abdominal exam: PRESENT: normal bowel sounds, soft. ABSENT: distended, guarding, mass, organolmegaly, rebound, tenderness Rectal exam: PRESENT: deferred Extremities exam: PRESENT: full ROM, pedal edema. ABSENT: calf tenderness, clubbing Neurological exam: PRESENT: alert, awake, oriented to person, oriented to place , oriented to time, oriented to situation, CN II-XII grossly intact. ABSENT: motor sensory deficit Psychiatric exam: PRESENT: appropriate affect, normal mood. ABSENT: homicidal ideation, suicidal ideation Skin exam: PRESENT: dry, intact, warm. ABSENT: cyanosis, rash Results Laboratory Results: 12/24/17 06:46 12/24/17 06:46 12/20/17 12/22/17 12/22/17 11:36 15:21 15:21 Troponin I 0.335 NT-Pro-B Natriuret Pep 35822 H 7390 H Impressions: Chest X-Ray 12/18/17 09:55 IMPRESSION: Minimal right basilar densities most consistent with atelectatic changes although I cannot exclude a minimal infiltrate. Remaining lung nunn are clear. Other findings as noted above Qualifiers - * PATIENT BEING DISCHARGED WITH ANY OF THE FOLLOWING DIAGNOSIS: No Plan Discharge Plan: He will be discharged home today and he will resume his home health services. Time Spent: Greater than 30 Minutes
[2017-12-25 16:09] VITALS: BP 113/55
== END 2017-12-25 17:45 | disposition home health service (06) | DRG 871 ==
LOC: ER 09:52 → EH 11:50 → 3S 13:57
PROVIDERS: ADMIT Internal Medicine; ATTEND Internal Medicine
PROC: 5A09557 Assistance with Respiratory Ventilation, Greater than 96 Consecutive Hours, Continuous Positive Airway Pressure (ICD-10-PCS; principal; 2017-12-18)
DX: A41.9 Sepsis, unspecified organism (principal); J18.1 Lobar pneumonia, unspecified organism; J96.21 Acute and chronic respiratory failure with hypoxia; J96.22 Acute and chronic respiratory failure with hypercapnia; G93.41 Metabolic encephalopathy; I21.A1 Myocardial infarction type 2; I13.0 Hypertensive heart and chronic kidney disease with heart failure and stage 1 through stage 4 chronic kidney disease, or unspecified chronic kidney disease; N18.4 Chronic kidney disease, stage 4 (severe); N17.9 Acute kidney failure, unspecified; L03.116 Cellulitis of left lower limb; I25.2 Old myocardial infarction; E78.5 Hyperlipidemia, unspecified; I50.9 Heart failure, unspecified; E11.22 Type 2 diabetes mellitus with diabetic chronic kidney disease; N40.0 Benign prostatic hyperplasia without lower urinary tract symptoms; E11.618 Type 2 diabetes mellitus with other diabetic arthropathy; E11.621 Type 2 diabetes mellitus with foot ulcer; L97.529 Non-pressure chronic ulcer of other part of left foot with unspecified severity; E11.628 Type 2 diabetes mellitus with other skin complications; E11.65 Type 2 diabetes mellitus with hyperglycemia; R45.1 Restlessness and agitation; D69.59 Other secondary thrombocytopenia; E66.9 Obesity, unspecified; J44.9 Chronic obstructive pulmonary disease, unspecified; K21.9 Gastro-esophageal reflux disease without esophagitis; M19.90 Unspecified osteoarthritis, unspecified site; F32.9 Major depressive disorder, single episode, unspecified; D63.1 Anemia in chronic kidney disease; Z96.89 Presence of other specified functional implants; Z79.82 Long term (current) use of aspirin; Z83.3 Family history of diabetes mellitus; Z88.8 Allergy status to other drugs, medicaments and biological substances; Z91.013 Allergy to seafood; Z79.899 Other long term (current) drug therapy; Z68.35 Body mass index [BMI] 35.0-35.9, adult
CPT/HCPCS: 36415; 36600; 51701; 71045; 80048; 80053; 81001; 82550; 82553; 82565; 82803; 82962; 83605; 83735; 83880; 84100; 84484; 85025; 85027; 85610; 85730; 87040; 93005; 93010; 93306; 94660; 94667; 94799; 99291; G8978-GP; G8979-GP; J0456; J0696; J1644; J1650; J1815; J3490; J7060; J7620

== ENCOUNTER 2018-01-02 15:28 | Emergency (ER) | payer MEDICARE, OTHER ==
--- NOTE | 2018-01-02 17:14 | ER Document Report ---
ED Medical Screen (RME) - General Chief Complaint: Skin Sore(s) Stated Complaint: GROIN PAIN Time Seen by Provider: 01/02/18 17:10 Notes: 77 years old male with multiple history including diabetes, hypertension congestive heart failure, peripheral edema, sepsis. Was treated in the hospital recently and discharged. He has multiple decubitus ulcers. Today while the visiting nurse evaluated him noted the lower part of the scrotum was excoriating, erythematous and weeping therefore he was sent over to the ED again. I have greeted and performed a rapid initial assessment of this patient. A comprehensive ED assessment and evaluation of the patient, analysis of test results and completion of the medical decision making process will be conducted by additional ED providers. PHYSICAL EXAMINATION: GENERAL: Elderly obese gentleman HEAD: Atraumatic, normocephalic. EYES: Pupils equal round extraocular movements intact, conjunctiva are normal. ENT: Nares patent NECK: Normal range of motion LUNGS: No respiratory distress Musculoskeletal: Bilateral chronic edema with stasis dermatosis and erythema. NEUROLOGICAL: Normal speech, normal gait. PSYCH: Normal mood, normal affect. SKIN: Warm, Dry, normal turgor, no rashes or lesions noted. TRAVEL OUTSIDE OF THE [place] IN LAST 30 DAYS: No - Related Data Allergies/Adverse Reactions: enalapril [Enalapril] Allergy (Severe, Verified 01/02/18 15:33) Angioneurotic Edema shrimp Allergy (Verified 01/02/18 15:33) Past Medical History - Past Medical History Cardiac Medical History: Reports: Hx Congestive Heart Failure, Hx Heart Attack - 2007, Hx Hypercholesterolemia, Hx Hypertension Denies: Hx Coronary Artery Disease Pulmonary Medical History: Reports: Hx COPD Denies: Hx Asthma, Hx Bronchitis, Hx Pneumonia Neurological Medical History: Denies: Hx Cerebrovascular Accident, Hx Seizures Endocrine Medical History: Reports: Hx Diabetes Mellitus Type 2 Renal/ Medical History: Reports: Hx End Stage Renal Disease. Denies: Hx Peritoneal Dialysis GI Medical History: Reports: Hx Gastroesophageal Reflux Disease Musculoskeltal Medical History: Reports Hx Arthritis - GENERALIZED THROUGHOUT Psychiatric Medical History: Reports: Hx Depression Past Surgical History: Reports: Other - Dialysis catheter - Immunizations Hx Diphtheria, Pertussis, Tetanus Vaccination: No History of Influenza Vaccine for 05/2017 - 10/2017 Season: Yes Physical Exam - Vital signs Vitals: Temp Pulse Resp BP Pulse Ox 98.5 F 69 20 132/47 H 95 18 15:33 01/02/18 15:33 01/02/18 15:33 01/02/18 15:33 01/02/18 15:33 Course - Vital Signs Vital signs: Temp Pulse Resp BP Pulse Ox 98.5 F 69 20 132/47 H 95 18 15:33 01/02/18 15:33 01/02/18 15:33 01/02/18 15:33 01/02/18 15:33
[2018-01-02 18:14] LABS: ABSOLUTE BASOPHILS # (AUTO) 0.1 10^3/uL (0.0-0.2); ABSOLUTE EOSINOPHILS # (AUTO) 0.6 10^3/uL (0.0-0.6); ABSOLUTE LYMPHOCYTES (AUTO) 1.5 10^3/uL (0.5-4.7); ABSOLUTE MONOCYTES (AUTO) 0.6 10^3/uL (0.1-1.4); ABSOLUTE NEUT (AUTO) 9.4 10^3/uL (1.7-8.2); BASOPHILS % (AUTO) 1.1 % (0-2); EOSINOPHILS % (AUTO) 5.1 % (0-6); HEMOGLOBIN 11.1 g/dL (13.5-17.0); LYMPHOCYTES % (AUTO) 12.6 % (13-45); MEAN CORPUSCULAR HEMOGLOBIN 28.5 pg (27.0-33.4); MEAN CORPUSCULAR HGB CONC 32.6 g/dL (32.0-36.0); MEAN CORPUSCULAR VOLUME 87 fl (80-97); MONOCYTES % (AUTO) 4.7 % (3-13); PLATELET COUNT 292 10^3/uL (150-450); RED CELL DISTRIBUTION WIDTH 15.8 % (11.5-14.0); SEGMENTED NEUTROPHILS % (AUTO) 76.5 % (42-78); TOTAL CELLS COUNTED % (AUTO) 100 %; WHITE BLOOD COUNT 12.3 10^3/uL (4.0-10.5)
[2018-01-02 18:28] LABS: ALANINE AMINOTRANSFERASE 55 U/L (21-72); ALBUMIN 3.6 g/dL (3.5-5.0); ALKALINE PHOSPHATASE 66 U/L (38-126); ANION GAP 13 (5-19); ASPARTATE AMINO TRANSFERASE 37 U/L (17-59); BILIRUBIN,DIRECT 0.2 mg/dL (0.0-0.4); BILIRUBIN,TOTAL 0.2 mg/dL (0.2-1.3); BLOOD UREA NITROGEN 79 mg/dL (7-20); CALCIUM 9.2 mg/dL (8.4-10.2); CARBON DIOXIDE 30 mmol/L (22-30); CHLORIDE 100 mmol/L (98-107); GLUCOSE 161 mg/dL (75-110); SODIUM 142.8 mmol/L (137-145); TOTAL PROTEIN 7.5 g/dL (6.3-8.2)
[2018-01-02] MEDS ORDERED: FLUCONAZOLE 100 MG TABLET PO ONE (20:02)
--- NOTE | 2018-01-02 20:03 | ER Document Report ---
ED General - General Chief Complaint: Skin Sore(s) Stated Complaint: GROIN PAIN Time Seen by Provider: 01/02/18 17:10 TRAVEL OUTSIDE OF THE [place] IN LAST 30 DAYS: No - HPI Patient complains to provider of: Evaluation of sores Notes: Patient is mostly bedridden coming in today for evaluation of bleeding ulcers on his buttocks according to the caregiver also patient has a infection in the groin region that may have been treating for yeast however continues to progress. Otherwise patient has no complaints patient is diabetic looks to have a history of stroke in the past according to past medical history. No fevers no chills no nausea no vomiting. Patient was evaluated by wound care today encouraged to come to the ER for further evaluation. - Related Data Allergies/Adverse Reactions: enalapril [Enalapril] Allergy (Severe, Verified 01/02/18 15:33) Angioneurotic Edema shrimp Allergy (Verified 01/02/18 15:33) Past Medical History - Social History Smoking Status: Former Smoker Chew tobacco use (# tins/day): No Frequency of alcohol use: None Drug Abuse: None Family History: DM, Other - no FH of familial angioedema Patient has suicidal ideation: No Patient has homicidal ideation: No - Past Medical History Cardiac Medical History: Reports: Hx Congestive Heart Failure, Hx Heart Attack - 2007, Hx Hypercholesterolemia, Hx Hypertension Denies: Hx Coronary Artery Disease Pulmonary Medical History: Reports: Hx COPD Denies: Hx Asthma, Hx Bronchitis, Hx Pneumonia Neurological Medical History: Denies: Hx Cerebrovascular Accident, Hx Seizures Endocrine Medical History: Reports: Hx Diabetes Mellitus Type 2 Renal/ Medical History: Reports: Hx End Stage Renal Disease. Denies: Hx Peritoneal Dialysis GI Medical History: Reports: Hx Gastroesophageal Reflux Disease Musculoskeltal Medical History: Reports Hx Arthritis - GENERALIZED THROUGHOUT Psychiatric Medical History: Reports: Hx Depression Past Surgical History: Reports: Hx Orthopedic Surgery - toe, Other - Dialysis catheter - Immunizations Hx Diphtheria, Pertussis, Tetanus Vaccination: No Hx Pneumococcal Vaccination: 08/06/14 Review of Systems - Review of Systems Constitutional: No symptoms reported EENT: No symptoms reported Cardiovascular: No symptoms reported Respiratory: No symptoms reported Gastrointestinal: No symptoms reported Genitourinary: No symptoms reported Male Genitourinary: No symptoms reported Musculoskeletal: No symptoms reported Skin: Other - Sores evaluation of rash in groin Hematologic/Lymphatic: No symptoms reported Neurological/Psychological: No symptoms reported Physical Exam - Vital signs Vitals: Temp Pulse Resp BP Pulse Ox 98.5 F 69 20 132/47 H 95 01/02/18 15:33 01/02/18 15:33 01/02/18 15:33 01/02/18 15:33 01/02/18 15:33 Interpretation: Normal - General General appearance: Appears well, Alert - HEENT Head: Normocephalic, Atraumatic Eyes: Normal Pupils: PERRL - Respiratory Respiratory status: No respiratory distress Chest status: Nontender Breath sounds: Normal Chest palpation: Normal - Cardiovascular Rhythm: Regular Heart sounds: Normal auscultation Murmur: No - Abdominal Inspection: Normal Distension: No distension Bowel sounds: Normal Tenderness: Nontender Organomegaly: No organomegaly - Rectal Notes: Examination of the patient's buttocks does reveal bilateral pressure sores of the ischium as were the patient has been bedridden for quite some time. Removal of dressings that are right over the sores does remove a small amount skin and which does start to reduce. There is no signs of [place] bleeding there is no signs of infection or abscess. Examination of the groin is significant for a yeast infection with irritation of the skin. Elevation of the scrotum does not reveal any signs of Betsy's gangrene or underlying cellulitic process. The coronary also does have a lot of cream and nystatin powder here to it - Back Back: Normal, Nontender - Extremities General upper extremity: Normal inspection, Nontender General lower extremity: Normal inspection, Nontender, Normal color, Other - Ulcer of the left foot on the plantar side is approximately 2 cm x 3 cm no signs of any infection according to the caregiver this is chronic - Neurological Neuro grossly intact: Yes Cognition: Normal Orientation: AAOx4 [place] Coma Scale Eye Opening: Spontaneous [place] Coma Scale Verbal: Oriented [place]on Coma Scale Motor: Obeys Commands [place] Coma Scale Total: 15 Speech: Normal Motor strength normal: LUE, RUE, LLE, RLE Sensory: Normal - Psychological Associated symptoms: Normal affect, Normal mood - Skin Skin Temperature: Warm Skin Moisture: Dry Skin Color: Normal Course - Re-evaluation Re-evalutation: 01/03/18 02:32 Patient with a significant yeast infection in groin region with developing bilateral buttocks pressure sores. We did pad and cover the sores. Also recommended to the truck driver rubbish collector that the patient be bathed with baby soap and continued application of nystatin powder also to encourage rolling the patient to avoid progression of these bedsores. Because of significant infection of the stent was seen in groin region did give the patient 1 dose of Diflucan. Encouraged follow-up for the ulcer on his foot otherwise patient will be discharged home - Vital Signs Vital signs: Temp Pulse Resp BP Pulse Ox 96.9 F L 63 16 167/38 H 97 01/02/18 20:17 01/02/18 20:17 01/02/18 20:17 01/02/18 20:17 01/02/18 20:17 - Laboratory Result Diagrams: 01/02/18 18:00 01/02/18 18:00 Laboratory results interpreted by me: 01/02/18 01/02/18 18:00 18:00 WBC 12.3 H RBC 3.90 L Hgb 11.1 L Hct 34.0 L RDW 15.8 H Lymphocytes % 12.6 L Absolute Neutrophils 9.4 H BUN 79 H Creatinine 2.87 H Est GFR ( Amer) 26 L Est GFR (Non-Af Amer) 21 L Glucose 161 H Discharge - Discharge Clinical Impression: Skin yeast infection Pressure sore on buttocks Qualifiers: Pressure ulcer stage: stage 1 Laterality: unspecified laterality Qualified Code (s): L89.301 - Pressure ulcer of unspecified buttock, stage 1 Condition: Good Disposition: HOME, SELF-CARE Instructions: Decubitus Ulcer ([facility]) Additional Instructions: Your evaluation today does reveal development pressure ulcers on the bilateral buttocks. These when bandaging the ulceration make sure that the have a wide dressing please use the paper take aphthous that the patient's skin is very thin and friable. Patient does have significant yeast infection within the groin please keep this as dry as possible would recommend using possible baby soap at this time do not see any signs of a cellulitic process or skin infection requiring antibiotic. Will give the 1 dose of Diflucan see if this will not help with the underlying yeast please continue to use her nystatin follow-up with your windows technical specialist Referrals: USHA ARNOLD MD [Primary Care Provider] - Follow up as needed
[2018-01-02 20:35] VITALS: BP 167/38
== END 2018-01-02 20:35 | disposition home or self-care (01) ==
LOC: ER 15:28
DX: L89.301 Pressure ulcer of unspecified buttock, stage 1 (principal); B37.2 Candidiasis of skin and nail; I50.9 Heart failure, unspecified; E78.00 Pure hypercholesterolemia, unspecified; I11.0 Hypertensive heart disease with heart failure; E11.9 Type 2 diabetes mellitus without complications; E11.22 Type 2 diabetes mellitus with diabetic chronic kidney disease; I13.2 Hypertensive heart and chronic kidney disease with heart failure and with stage 5 chronic kidney disease, or end stage renal disease; N18.6 End stage renal disease; I25.2 Old myocardial infarction; Z99.2 Dependence on renal dialysis
CPT/HCPCS: 99283; 36415; 87040; 85025; 80053; A9270

== ENCOUNTER 2018-08-14 08:24 | Inpatient (IN) | payer MEDICARE, OTHER ==
--- NOTE | 2018-08-14 09:40 | ER Document Report ---
ED General - General Chief Complaint: Leg Swelling Stated Complaint: DIFFICULTY BREATHING Time Seen by Provider: 08/14/18 09:20 Notes: Patient is a 78-year-old male with history of heart failure, and chronic kidney disease stage IV that presents to the emergency department for chief complaint of shortness of breath, difficulty breathing, and leg swelling. states that she has been noticing that the patient's been more short of breath, and noticed more leg swelling over the past several days, it was worse on the left, now starting to notice swelling on the right. He was seen by his primary care physician, and was placed on Levaquin, for presumed bronchitis, he finished that but he still been short of breath and actually worse, so they decided to bring him to the emergency department. He denies having any associated chest pain, nausea, vomiting or abdominal pain. Past Medical History: CKD, COPD, diabetes mellitus, CAD, peripheral vascular disease Past Surgical History: Right wrist AV fistula, femoral artery stenting Social History: Former smoker, denies current alcohol or drug use. Family History: Reviewed and noncontributory for presenting illness Allergies: Reviewed, see documented allergy list. REVIEW OF SYSTEMS: Other than noted above, the 12 point review of systems was reviewed with the patient and were negative, all pertinent findings are included in the HPI. PHYSICAL EXAMINATION: Vital signs reviewed, nursing noted reviewed. GENERAL: Elderly, obese male, mild distress, conversational dyspnea HEAD: Atraumatic, normocephalic. EYES: Eyes appear normal, extraocular movements intact, sclera anicteric, conjunctiva are normal. ENT: nares patent, oropharynx clear without exudates. Moist mucous membranes. NECK: Normal range of motion, supple without lymphadenopathy LUNGS: Diminished lung sounds at the bases, mild increased work of breathing, no wheezing or rhonchi. HEART: Regular rate and rhythm without murmurs ABDOMEN: Soft, nontender, normoactive bowel sounds. No rebound, guarding, or rigidity. No masses appreciated. EXTREMITIES: 3+ pitting edema to the proximal tibia on the left, 2+ on the right, stasis skin changes noted bilaterally in the lower extremities. Pulses equal bilaterally in all extremities. The right wrist noted to have AV fistula with positive bruit and thrill. NEUROLOGICAL: No focal neurological deficits. Moves all extremities spontaneously Motor and sensory grossly intact on exam. PSYCH: Normal mood, normal affect. SKIN: Warm, Dry, normal turgor, no rashes or lesions noted on exposed skin TRAVEL OUTSIDE OF THE [place] IN LAST 30 DAYS: No - Related Data Allergies/Adverse Reactions: enalapril [Enalapril] Allergy (Severe, Verified 08/14/18 17:11) Angioneurotic Edema shrimp Allergy (Verified 08/14/18 17:11) Past Medical History - Social History Smoking Status: Former Smoker Family History: DM, Other - no FH of familial angioedema - Past Medical History Cardiac Medical History: Reports: Hx Congestive Heart Failure, Hx Heart Attack - 2007, Hx Hypercholesterolemia, Hx Hypertension Denies: Hx Coronary Artery Disease Pulmonary Medical History: Reports: Hx COPD Denies: Hx Asthma, Hx Bronchitis, Hx Pneumonia Neurological Medical History: Denies: Hx Cerebrovascular Accident, Hx Seizures Endocrine Medical History: Reports: Hx Diabetes Mellitus Type 2 Renal/ Medical History: Reports: Hx End Stage Renal Disease. Denies: Hx Peritoneal Dialysis GI Medical History: Reports: Hx Gastroesophageal Reflux Disease Musculoskeletal Medical History: Reports Hx Arthritis - GENERALIZED THROUGHOUT Psychiatric Medical History: Reports: Hx Depression Past Surgical History: Reports: Hx Orthopedic Surgery - toe, Other - Dialysis catheter - Immunizations Hx Diphtheria, Pertussis, Tetanus Vaccination: No Hx Pneumococcal Vaccination: 08/06/14 Physical Exam - Vital signs Vitals: Temp Pulse Resp BP Pulse Ox 98.6 F 78 20 156/72 H 94 08/14/18 08:30 08/14/18 08:30 08/14/18 08:30 08/14/18 08:30 08/14/18 08:30 Course - Re-evaluation Re-evalutation: Patient seen and examined vital signs reviewed. Laboratory data and imaging were ordered as appropriate for the patient's presenting symptoms and complaint, with consideration of any critical or life threatening conditions that may be associated with their obtained history and exam as noted above. Patient was treated with IV Lasix, for fluid overload pulmonary edema, he was placed on CPAP, to assist as he did start to desaturate into the mid 80s at times in the emergency room Results were reviewed when available and demonstrated pulmonary edema on chest x-ray, his duplex ultrasound of the lower extremities was negative for DVT, but he did have significant lower extremity edema, consistent with fluid overload his BNP was elevated and higher than his baseline, he also had a marginally elevated troponin, which is likely secondary to his heart failure, as opposed to primary ischemia, upon further review of his prior blood work, this was consistent where he is been in the past in regards to his troponin, his renal function appears to be near his baseline as well. He was noted to be rather anemic as well at 7.7, which could be due to hemodilution due to his volume overload versus worsening chronic anemia secondary to his advanced renal failure. The patient was re-evaluated and was improved overall, and stable Evaluation was most consistent with acute on chronic congestive heart failure, volume overload, pulmonary edema Results were discussed with the patient at this point after careful consideration I feel that that patient should be admitted to the hospital. This was discussed with the patient that it is in the best interest for their care to be admitted for further evaluation and management. Patient agreed with this plan of care. A call was placed to the admitted physician, Dr. Tucker who graciously accepted the patient onto their service. *Note is created using voice recognition software and may contain spelling, syntax or grammatical errors. Laboratory 08/14/18 08/14/18 08/14/18 09:45 09:45 09:45 WBC 6.7 RBC 2.63 L Hgb 7.7 L Hct 23.7 L MCV 90 MCH 29.4 MCHC 32.6 RDW 15.3 H Plt Count 185 Seg Neutrophils % 76.9 Lymphocytes % 9.2 L Monocytes % 7.4 Eosinophils % 5.6 Basophils % 0.9 Absolute Neutrophils 5.1 Absolute Lymphocytes 0.6 Absolute Monocytes 0.5 Absolute Eosinophils 0.4 Absolute Basophils 0.1 Sodium 141.3 Potassium 3.9 Chloride 104 Carbon Dioxide 29 Anion Gap 8 BUN 55 H Creatinine 3.26 H Est GFR ( Amer) 22 L Est GFR (Non-Af Amer) 18 L Glucose 152 H Calcium 8.1 L Total Bilirubin 0.4 Direct Bilirubin 0.3 Neonat Total Bilirubin Not Reportable Neonat Direct Bilirubin Not Reportable Neonat Indirect Bili Not Reportable AST 13 L ALT 17 L Alkaline Phosphatase 71 Troponin I 0.130 NT-Pro-B Natriuret Pep 99612 H Total Protein 6.5 Albumin 3.4 L Blood Type Antibody Screen 08/14/18 11:30 WBC RBC Hgb Hct MCV MCH MCHC RDW Plt Count Seg Neutrophils % Lymphocytes % Monocytes % Eosinophils % Basophils % Absolute Neutrophils Absolute Lymphocytes Absolute Monocytes Absolute Eosinophils Absolute Basophils Sodium Potassium Chloride Carbon Dioxide Anion Gap BUN Creatinine Est GFR ( Amer) Est GFR (Non-Af Amer) Glucose Calcium Total Bilirubin Direct Bilirubin Neonat Total Bilirubin Neonat Direct Bilirubin Neonat Indirect Bili AST ALT Alkaline Phosphatase Troponin I NT-Pro-B Natriuret Pep Total Protein Albumin Blood Type A NEGATIVE Antibody Screen NEGATIVE Chest X-Ray 08/14/18 09:21 IMPRESSION: Increased size of the cardiac silhouette with likely mild interstitial edema and small right effusion. Venous Doppler Study 08/14/18 09:40 IMPRESSION: No evidence of DVT or SVT in either leg. Subcutaneous edema, greatest on the left. - Vital Signs Vital signs: Temp Pulse Resp BP Pulse Ox 98.7 F 72 20 149/41 H 100 08/14/18 20:05 08/14/18 20:05 08/14/18 20:05 08/14/18 20:05 08/14/18 20:05 - Laboratory Result Diagrams: 08/14/18 09:45 08/14/18 09:45 Laboratory results interpreted by me: 08/14/18 08/14/18 08/14/18 09:45 09:45 09:45 RBC 2.63 L Hgb 7.7 L Hct 23.7 L RDW 15.3 H Lymphocytes % 9.2 L BUN 55 H Creatinine 3.26 H Est GFR ( Amer) 22 L Est GFR (Non-Af Amer) 18 L Glucose 152 H Calcium 8.1 L AST 13 L ALT 17 L NT-Pro-B Natriuret Pep 83434 H Albumin 3.4 L - EKG Interpretation by Me Additional EKG results interpreted by me: EKG demonstrates sinus rhythm with a ventricular rate of 73 bpm, normal axis, QTC 490 ms, there is T wave flattening in aVL, no ST changes, this is compared with prior EKG from 12/18/2017, without significant change. Critical Care Note - Critical Care Note Comments: Critical care time 30 minutes exclusive from separate billable procedures for a patient requiring complex medical decision making, and high potential for clinical deterioration. In a patient requiring noninvasive positive pressure ventilation with pulmonary edema and acute on chronic heart failure. Time spent obtaining history from patient or surrogate, discussions with consultants, development of treatment plan with patient or surrogate, evaluation of patient's response to treatment, examination of patient, ordering and performing treatments and interventions, ordering and review of laboratory studies, re- evaluation of patient's condition, ordering and review of radiographic studies and review of old charts Discharge - Discharge Clinical Impression: Hypoxia Acute exacerbation of CHF (congestive heart failure) Qualifiers: Heart failure type: diastolic Qualified Code(s): I50.33 - Acute on chronic diastolic (congestive) heart failure Anemia Qualifiers: Anemia type: unspecified type Qualified Code(s): D64.9 - Anemia, unspecified Pulmonary edema Qualifiers: Chronicity: acute Qualified Code(s): J81.0 - Acute pulmonary edema Condition: Stable Disposition: ADMITTED INPATIENT Admitting Provider: Hospitalist - Dr. Tucker Unit Admitted: [facility]
--- NOTE | 2018-08-14 09:53 | RADIOLOGY REPORT (SQ) ---
EXAM DESCRIPTION: CHEST SINGLE VIEW COMPLETED DATE/TIME: 08/14/2018 9:40 am REASON FOR STUDY: shortness of breath COMPARISON: 01/08/2016 EXAM PARAMETERS: NUMBER OF VIEWS: One view. TECHNIQUE: Single frontal radiographic view of the chest acquired. RADIATION DOSE: NA LIMITATIONS: Mild patient rotation. FINDINGS: LUNGS AND PLEURA: Central vascular prominence with mild interstitial opacities. Likely sm all right effusion. No dense consolidation. MEDIASTINUM AND HILAR STRUCTURES: No discrete mass. Central vascular congestion. HEART AND VASCULAR STRUCTURES: Increased size of the cardiac silhouette compared to prior. BONES: No acute findings. HARDWARE: None in the chest. OTHER: No other significant finding. IMPRESSION: Increased size of the cardiac silhouette with likely mild interstitial edema and small r ight effusion. TECHNICAL DOCUMENTATION: JOB ID: [id number] [employer]- All Rights Reserved Reading location - IP/workstation name: [email or web address]
[2018-08-14 10:15] LABS: ABSOLUTE BASOPHILS # (AUTO) 0.1 10^3/uL (0.0-0.2); ABSOLUTE EOSINOPHILS # (AUTO) 0.4 10^3/uL (0.0-0.6); ABSOLUTE LYMPHOCYTES (AUTO) 0.6 10^3/uL (0.5-4.7); ABSOLUTE MONOCYTES (AUTO) 0.5 10^3/uL (0.1-1.4); ABSOLUTE NEUT (AUTO) 5.1 10^3/uL (1.7-8.2); BASOPHILS % (AUTO) 0.9 % (0-2); EOSINOPHILS % (AUTO) 5.6 % (0-6); HEMATOCRIT 23.7 % (37.9-51.0); LYMPHOCYTES % (AUTO) 9.2 % (13-45); MEAN CORPUSCULAR HEMOGLOBIN 29.4 pg (27.0-33.4); MEAN CORPUSCULAR HGB CONC 32.6 g/dL (32.0-36.0); MEAN CORPUSCULAR VOLUME 90 fl (80-97); MONOCYTES % (AUTO) 7.4 % (3-13); PLATELET COUNT 185 10^3/uL (150-450); RED BLOOD COUNT 2.63 10^6/uL (4.35-5.55); RED CELL DISTRIBUTION WIDTH 15.3 % (11.5-14.0); SEGMENTED NEUTROPHILS % (AUTO) 76.9 % (42-78); TOTAL CELLS COUNTED % (AUTO) 100 %; WHITE BLOOD COUNT 6.7 10^3/uL (4.0-10.5)
[2018-08-14 10:21] LABS: ALANINE AMINOTRANSFERASE 17 U/L (21-72); ALBUMIN 3.4 g/dL (3.5-5.0); ALKALINE PHOSPHATASE 71 U/L (38-126); ANION GAP 8 (5-19); ASPARTATE AMINO TRANSFERASE 13 U/L (17-59); BILIRUBIN,DIRECT 0.3 mg/dL (0.0-0.4); BILIRUBIN,TOTAL 0.4 mg/dL (0.2-1.3); BLOOD UREA NITROGEN 55 mg/dL (7-20); CALCIUM 8.1 mg/dL (8.4-10.2); CARBON DIOXIDE 29 mmol/L (22-30); CHLORIDE 104 mmol/L (98-107); GLUCOSE 152 mg/dL (75-110); POTASSIUM 3.9 mmol/L (3.6-5.0); SODIUM 141.3 mmol/L (137-145); TOTAL PROTEIN 6.5 g/dL (6.3-8.2)
[2018-08-14 10:30] LABS: HEMOGLOBIN 7.7 g/dL (13.5-17.0)
[2018-08-14 10:35] LABS: TROPONIN I 0.13 ng/mL
--- NOTE | 2018-08-14 11:08 | EKG REPORT ---
SEVERITY:- BORDERLINE ECG - SINUS RHYTHM BORDERLINE T WAVE ABNORMALITIES BORDERLINE PROLONGED QT INTERVAL : Confirmed by: Sagar Rogers MD 14-Aug-2018 11:07:39
[2018-08-14] MEDS ORDERED: FUROSEMIDE INJ/PF 40 MG/4 ML SDV IV ONE (11:24)
--- NOTE | 2018-08-14 11:42 | RADIOLOGY REPORT (SQ) ---
EXAM DESCRIPTION: VENOUS BILATERAL LOWER COMPLETED DATE/TIME: 08/14/2018 11:25 am REASON FOR STUDY: bilateral le edema, L>R COMPARISON: None. TECHNIQUE: Dynamic and static alexander scale and color images acquired of both lower extremity venous sy stems. Selected spectral images acquired with additional compression and augmentation maneuvers. Imag es stored on PACS. LIMITATIONS: None. FINDINGS: RIGHT LEG COMMON FEMORAL AND FEMORAL: Normal phasicity, compression and augmentation. No visualized echogenic m aterial on alexander scale. No defects on color images. POPLITEAL: Normal compression and augmentation. No visualized echogenic material on alexander scale. No de fects on color images. CALF VESSELS: Normal compression and augmentation. No visualized echogenic material on alexander scale. No defects on color image. GSV AND SSV: Normal compression. No visualized echogenic material on alexander scale. No defects on color images. ANY DEEP VENOUS INSUFFICIENCY: Not evaluated. ANY EVIDENCE OF POPLITEAL CYST: No. OTHER: No other significant finding. LEFT LEG COMMON FEMORAL AND FEMORAL: Normal phasicity, compression and augmentation. No visualized echogenic m aterial on alexander scale. No defects on color images. POPLITEAL: Normal compression and augmentation. No visualized echogenic material on alexander scale. No de fects on color images. CALF VESSELS: Normal compression and augmentation. No visualized echogenic material on alexander scale. No defects on color images. GSV AND SSV: Normal compression. No visualized echogenic material on alexander scale. No defects on color images. ANY DEEP VENOUS INSUFFICIENCY: Not evaluated. ANY EVIDENCE POPLITEAL CYST: No. OTHER: Distal subcutaneous edema. IMPRESSION: No evidence of DVT or SVT in either leg. Subcutaneous edema, greatest on the left. TECHNICAL DOCUMENTATION: JOB ID: [id number]- All Rights Reserved Reading location - IP/workstation name: [email or web address]
[2018-08-14] MEDS: NITROGLYCERIN 2% OINTMENT 1 GM PACKET TP SCH ×2 (13:35→18:26)
[2018-08-14] MEDS: HEPARIN SOD (PORCINE) 5,000 UNIT/ML 1 ML SYRINGE SUBCUT SCH ×2 (13:36→22:07)
[2018-08-14] MEDS ORDERED: (PENDING PHARMACY ID) (Prazosin Hcl [Minipress] 2 MG) PO SCH (18:00)
[2018-08-14] MEDS: FINASTERIDE 5 MG TABLET PO SCH (18:26)
[2018-08-14] MEDS: DOXAZOSIN MESYLATE 2 MG TABLET PO SCH (18:27)
--- NOTE | 2018-08-14 18:55 | PDOC H&P ---
History of Present Illness Admission Date/PCP: 08/14/18 12:50 History of Present Illness: LAURO CAI is a 78 year old male with a history of diastolic heart failure and multiple chronic comorbidities who presents with shortness of breath. He apparently has had worsening swelling of his lower extremities over the past couple of weeks. The last few days he has had orthopnea. His family will try to convince him to come to the hospital but he did not want to go. Earlier this morning he woke his up and told her that he needed to go to the hospital because his breathing was gotten so bad. He does not check his weight on a daily basis. His said he does not particularly pay attention to dietary or fluid restrictions. He has not had any changes in any of his me dications and his that he is been taking all of them as directed. He was fairly somnolent in the ER, and his said he had not really slept much in the last few days, so when they put oxygen on him and his breathing relaxed he was able to finally fall asleep. He denied any chest pain on presentation. Past Medical History Cardiac Medical History: Reports: Congestive Heart Failure, Myocardial Infarction - 2007, Hyperlipidema, Hypertension Denies: Coronary Artery Disease Pulmonary Medical History: Reports: Chronic Obstructive Pulmonary Disease (COPD) Denies: Asthma, Bronchitis, Pneumonia Neurological Medical History: Denies: Seizures Endocrine Medical History: Reports: Diabetes Mellitus Type 2 Renal/ Medical History: Reports: End Stage Renal Disease GI Medical History: Reports: Gastroesophageal Reflux Disease Musculoskeltal Medical History: Reports: Arthritis - GENERALIZED THROUGHOUT Psychiatric Medical History: Reports: Depression Hematology: Reports: Anemia Past Surgical History Past Surgical History: Reports: Orthopedic Surgery - toe, Other - Dialysis catheter Social History Smoking Status: Former Smoker Frequency of Alcohol Use: Occasional Hx Recreational Drug Use: No Drugs: None Hx Prescription Drug Abuse: No - Advance Directive Resuscitation Status: Do Not Resuscitate Family History Family History: DM, Other - no FH of familial angioedema Parental Family History Reviewed: Yes - Noncontributory Children Family History Reviewed: Yes - Noncontributory Sibling(s) Family History Reviewed.: Yes - Noncontributory Medication/Allergy Home Medications: Albuterol Sulfate [Proair HFA] 2 puff IH Q4HP PRN 12/18/17 Aspirin [Adult Low Dose Aspirin EC] 81 mg PO DAILY 12/18/17 Escitalopram Oxalate [Lexapro] 20 mg PO DAILY 12/18/17 Finasteride [Proscar 5 mg Tablet] 5 mg PO DAILY 12/18/17 Fluticasone/Salmeterol [Advair 500-50 Diskus 28 Dose] 1 puff IH Q12 12/18/17 Furosemide [Lasix 40 mg Tablet] 40 mg PO BID 12/18/17 Gabapentin [Neurontin 300 mg Capsule] 300 mg PO TID 12/18/17 Isosorbide Mononitrate [Imdur 30 mg Tablet.er] 30 mg PO DAILY 12/18/17 Potassium Chloride [Klor-Con M20] 10 meq PO Q48H 12/18/17 Prazosin HCl [Minipress] 2 mg PO BID 12/18/17 Risperidone [Risperdal 1 mg Tablet] 1 mg PO DAILY 12/18/17 Acetaminophen/Diphenhydramine [Tylenol Pm Ex-Strength Caplet] 2 each PO HSP PRN 08/14/18 Albuterol Sulfate [Ventolin 0.083% Neb 2.5 mg/3 ml Ampul] 1 vial NEB RTQ6HP PRN 08/14/18 Docusate Sodium [Colace 100 mg Capsule] 100 mg PO QHS 08/14/18 Mirabegron [Myrbetriq] 50 mg PO DAILY 08/14/18 Allergies/Adverse Reactions: enalapril [Enalapril] Allergy (Severe, Verified 08/14/18 17:11) Angioneurotic Edema shrimp Allergy (Verified 08/14/18 17:11) Review of Systems ROS unobtainable: Due to mental status - He was arousable but went back to sleep and did not want to answer questions, and I will the history I got, I got from his and from the medical record Physical Exam Vital Signs: Temp Pulse Resp BP Pulse Ox 98.6 F 78 21 H 144/55 H 94 08/14/18 08:30 08/14/18 08:30 08/14/18 18:02 08/14/18 18:02 08/14/18 18:02 Intake & Output 08/13/18 08/14/18 08/15/18 06:59 06:59 06:59 Output Total 550 Balance -550 Weight 118.2 kg General appearance: PRESENT: disheveled, mild distress, morbidly obese Head exam: PRESENT: atraumatic, normocephalic Eye exam: PRESENT: scleral icterus. ABSENT: conjunctival injection Ear exam: PRESENT: normal external ear exam Mouth exam: PRESENT: neck supple Teeth exam: PRESENT: poor dentation Neck exam: PRESENT: full ROM. ABSENT: carotid bruit, JVD, lymphadenopathy, meningismus, tenderness, thyromegaly Respiratory exam: PRESENT: crackles - Bibasilar, decreased breath sounds, symmetrical, unlabored. ABSENT: accessory muscle use, prolonged expiratory phas, rhonchi, tachypnea, wheezes Cardiovascular exam: PRESENT: RRR, +S1, +S2, systolic murmur - 2 out of 6 Vascular exam: PRESENT: normal capillary refill GI/Abdominal exam: PRESENT: normal bowel sounds. ABSENT: distended, guarding, rebound, tenderness Extremities exam: PRESENT: pedal edema, other - 3+ pitting edema below the knees bilaterally, he has 1+ edema just proximal to the knees bilaterally. ABSENT: clubbing Neurological exam: PRESENT: awake - Arouses to verbal command but is somnolent, oriented to person, other Psychiatric exam: PRESENT: flat affect - He was too somnolent to participate in all aspects of the examination Skin exam: PRESENT: other - He had signs of chronic venous insufficiency in the bilateral lower extremities. He had cool erythema below the knees bilaterally. Results Laboratory Results: 08/14/18 09:45 08/14/18 09:45 08/14/18 08/14/18 08/14/18 09:45 09:45 11:30 WBC 6.7 RBC 2.63 L Hgb 7.7 L Hct 23.7 L MCV 90 MCH 29.4 MCHC 32.6 RDW 15.3 H Plt Count 185 Seg Neutrophils % 76.9 Lymphocytes % 9.2 L Monocytes % 7.4 Eosinophils % 5.6 Basophils % 0.9 Absolute Neutrophils 5.1 Absolute Lymphocytes 0.6 Absolute Monocytes 0.5 Absolute Eosinophils 0.4 Absolute Basophils 0.1 Sodium 141.3 Potassium 3.9 Chloride 104 Carbon Dioxide 29 Anion Gap 8 BUN 55 H Creatinine 3.26 H Est GFR ( Amer) 22 L Est GFR (Non-Af Amer) 18 L Glucose 152 H Calcium 8.1 L Total Bilirubin 0.4 AST 13 L ALT 17 L Alkaline Phosphatase 71 Total Protein 6.5 Albumin 3.4 L Blood Type A NEGATIVE Antibody Screen NEGATIVE 08/14/18 08/14/18 09:45 13:25 Troponin I 0.130 0.145 NT-Pro-B Natriuret Pep 94226 H Impressions: Chest X-Ray 08/14/18 09:21 IMPRESSION: Increased size of the cardiac silhouette with likely mild interstitial edema and small right effusion. Venous Doppler Study 08/14/18 09:40 IMPRESSION: No evidence of DVT or SVT in either leg. Subcutaneous edema, greatest on the left. Assessment & Plan - Diagnosis (1) Acute exacerbation of CHF (congestive heart failure) Qualifiers: Heart failure type: diastolic Qualified Code(s): I50.33 - Acute on chronic diastolic (congestive) heart failure Is this a current diagnosis for this admission?: Yes Plan: We will try to get another echo to assess his ventricular function. He had signs of diastolic dysfunction on his last echocardiogram, but they were unable to evaluate the right ventricle at that time. We will start him on some Lasix IV and will attempt to medically optimize him. We will also start nitroglycerin paste. (2) CKD (chronic kidney disease) stage 4, GFR 15-29 ml/min Is this a current diagnosis for this admission?: Yes Plan: His creatinine is in its usual range. We will watch this closely as we diurese him. (3) Diabetes Qualifiers: Diabetes mellitus type: type 2 Diabetes mellitus complication status: with diabetic arthropathy Is this a current diagnosis for this admission?: Yes Plan: We will continue his home regimen. Consistent carbohydrate diet. (4) Obesity (BMI 30-39.9) Is this a current diagnosis for this admission?: Yes Plan: We will encourage lifestyle modification. - Time Time Spent: 50 to 70 Minutes - Inpatient Certification Based on my medical assessment, after consideration of the patient's comorbidities, presenting symptoms, or acuity I expect that the services needed warrant INPATIENT care.: Yes I certify that my determination is in accordance with my understanding of Medicare's requirements for reasonable and necessary INPATIENT services [42 CFR 412.3e].: Yes Medical Necessity: Significant Comorbidiites Make Outpatient Treatment Too Risky, Need Close Monitoring Due to Risk of Patient Decompensation, Need For Continuous Telemetry Monitoring, Risk of Complication if Not Cared For in Hospital
[2018-08-14] MEDS: FUROSEMIDE INJ/PF 40 MG/4 ML SDV IV SCH (22:17)
[2018-08-14] MEDS: FLUTICASONE/SALMETEROL DISKUS 500-50 MCG/DOSE IH SCH (22:17)
[2018-08-14] MEDS: ESCITALOPRAM OXALATE 10 MG TABLET PO SCH (22:18)
[2018-08-14] MEDS: SIMVASTATIN 10 MG TABLET PO SCH (22:18)
[2018-08-15] MEDS: NITROGLYCERIN 2% OINTMENT 1 GM PACKET TP SCH ×4 (00:28→18:05)
[2018-08-15] MEDS: HEPARIN SOD (PORCINE) 5,000 UNIT/ML 1 ML SYRINGE SUBCUT SCH ×3 (05:29→23:16)
[2018-08-15 07:39] LABS: ANION GAP 8 (5-19); BLOOD UREA NITROGEN 56 mg/dL (7-20); CALCIUM 8.2 mg/dL (8.4-10.2); CARBON DIOXIDE 28 mmol/L (22-30); CHLORIDE 104 mmol/L (98-107); GLUCOSE 142 mg/dL (75-110); POTASSIUM 4.1 mmol/L (3.6-5.0); SODIUM 139.7 mmol/L (137-145)
[2018-08-15] MEDS: METOPROLOL SUCCINATE 25 MG TAB.SR.24H PO SCH (08:50)
[2018-08-15] MEDS: FUROSEMIDE INJ/PF 40 MG/4 ML SDV IV SCH ×2 (09:23→23:17)
[2018-08-15] MEDS: MULTIVITAMIN TABLET PO SCH (09:24)
[2018-08-15] MEDS: SITAGLIPTIN PHOSPHATE 25 MG TABLET PO SCH (09:24)
[2018-08-15] MEDS: METOLAZONE 2.5 MG TABLET PO SCH (09:24)
[2018-08-15] MEDS: DOXAZOSIN MESYLATE 2 MG TABLET PO SCH ×2 (09:24→18:05)
[2018-08-15] MEDS: ASPIRIN 81 MG TABLET, ENT COATED PO SCH (09:24)
[2018-08-15] MEDS: FLUTICASONE/SALMETEROL DISKUS 500-50 MCG/DOSE IH SCH ×2 (09:25→23:24)
[2018-08-15] MEDS ORDERED: (PENDING PHARMACY ID) (Linagliptin [Tradjenta] 5 MG) PO SCH (10:00)
--- NOTE | 2018-08-15 16:13 | PDOC PROGRESS REPORT ---
Subjective Progress Note for:: 08/15/18 Subjective:: No adverse events overnight. He is more alert and interactive today. He said good urine output. His legs are much less swollen. Oxygen saturations have been very good on room air. Reason For Visit: HEART FAILURE Physical Exam Vital Signs: Temp Pulse Resp BP Pulse Ox 99.1 F 86 16 162/58 H 93 08/15/18 12:04 08/15/18 14:00 08/15/18 12:04 08/15/18 12:04 08/15/18 12:04 Intake & Output 08/14/18 08/15/18 08/16/18 06:59 06:59 06:59 Intake Total 120 Output Total 1250 Balance -1130 Weight 118.2 kg General appearance: PRESENT: no acute distress, cooperative, disheveled, morbidly obese Respiratory exam: PRESENT: accessory muscle use, decreased breath sounds, symmetrical, unlabored. ABSENT: crackles, rhonchi, tachypnea, wheezes Cardiovascular exam: PRESENT: RRR, +S1, +S2 Vascular exam: PRESENT: normal capillary refill GI/Abdominal exam: PRESENT: normal bowel sounds, soft. ABSENT: distended, g uarding, rebound, tenderness Extremities exam: PRESENT: pedal edema, +2 edema - The edema overall is reduced, and is now distal to the knee.. ABSENT: clubbing Musculoskeletal exam: ABSENT: deformity, normal inspection Neurological exam: PRESENT: alert, awake, oriented to person, oriented to place, oriented to situation Psychiatric exam: PRESENT: flat affect Skin exam: PRESENT: other - Has cool pale erythema distal to the knee at the same level bilaterally consistent with chronic venous stasis. ABSENT: dry, warm Results Laboratory Results: 08/14/18 09:45 08/15/18 07:12 08/15/18 07:12 Sodium 139.7 Potassium 4.1 Chloride 104 Carbon Dioxide 28 Anion Gap 8 BUN 56 H Creatinine 3.25 H Est GFR ( Amer) 22 L Est GFR (Non-Af Amer) 19 L Glucose 142 H Calcium 8.2 L 08/14/18 08/14/18 08/14/18 09:45 13:25 19:24 Troponin I 0.130 0.145 0.147 NT-Pro-B Natriuret Pep [id number] H 08/15/18 08/15/18 08/15/18 01:28 07:12 07:12 Troponin I 0.117 0.105 NT-Pro-B Natriuret Pep [id number] H Impressions: Chest X-Ray 08/14/18 09:21 IMPRESSION: Increased size of the cardiac silhouette with likely mild interstitial edema and small right effusion. Venous Doppler Study 08/14/18 09:40 IMPRESSION: No evidence of DVT or SVT in either leg. Subcutaneous edema, greatest on the left. Assessment & Plan - Diagnosis (1) Acute exacerbation of CHF (congestive heart failure) Qualifiers: Heart failure type: diastolic Qualified Code(s): I50.33 - Acute on chronic diastolic (congestive) heart failure Is this a current diagnosis for this admission?: Yes Plan: Responded well to diuretics so far. Continue IV Lasix. Continue nitroglycerin paste. We will continue his other home medications as appropriate. Echocardiogram is pending. (2) CKD (chronic kidney disease) stage 4, GFR 15-29 ml/min Is this a current diagnosis for this admission?: Yes Plan: Stable in his usual range. His creatinine has not deteriorated with diuresis thus far. (3) Diabetes Qualifiers: Diabetes mellitus type: type 2 Diabetes mellitus complication status: with diabetic arthropathy Is this a current diagnosis for this admission?: Yes Plan: We will continue his home regimen. Consistent carbohydrate diet. (4) Obesity (BMI 30-39.9) Is this a current diagnosis for this admission?: Yes Plan: We will encourage lifestyle modification. - Time Time Spent with patient: 15-24 minutes
[2018-08-15] MEDS: FINASTERIDE 5 MG TABLET PO SCH (18:05)
--- NOTE | 2018-08-15 22:59 | XCELERA REPORT ---
[address] [address] Transthoracic Echocardiogram Report Name: LAURO CAI Age: 78 yrs Gender: Male : 1940 Patient Status: Inpatient Patient Location: [address] [place], [place] [address] Study Date: 08/15/2018 09:50 AM Height: 71 in Weight: 260 lb BSA: 2.4 m2 Procedure: A two-dimensional transthoracic echocardiogram with color flow and Doppler was performed. Study Quality: Fair. Reason For Study: chf History: CHF. Ordering Physician: NITIN COOK Performed By: Sima Cespedes Interpretation Summary The left ventricle is normal in size. There is normal left ventricular wall thickness. LV EF is > than 60% Left ventricular systolic function is normal. Doppler measurements suggest normal left ventricular diastolic function The left ventricular wall motion is normal. There is no thrombus. There is no ventricular septal defect visualized. The right ventricle is mildly dilated. The right ventricular systolic function is normal. There is mild right ventricular hypertrophy. The right atrium is borderline dilated. The left atrium is mildly dilated. The interatrial septum is intact with no evidence for an atrial septal defect. There is no Doppler evidence for an interatrial shunt There is mild to moderate mitral annular calcification. There is no evidence of mitral valve prolapse. There is no vegetation seen on the mitral valve. There is no mitral valve stenosis. There is a trace amount of mitral regurgitation There is no aortic valvular vegetation. There is no aortic valve stenosis There is no LVOT obstruction. There is aortic sclerosis without aortic stenosis. No aortic regurgitation is present. There is no tricuspid stenosis. There is a mild amount of tricuspid regurgitation There is mild pulmonary hypertension by echo RVSP is 38 mm of Hg , with RA mean of 10. There is no pulmonic valvular stenosis. There is no pulmonic valvular regurgitation. The aortic root is normal size. There is no pericardial effusion. MMode/2D Measurements & Calculations RVDd: 3.1 cm LVIDd: 4.9 cm FS: 30.5 % Ao root diam: 3.0 cm IVSd: 1.2 cm LVIDs: 3.4 cm EDV(Teich): 110.2 ml Ao root area: 7.3 cm2 LVPWd: 1.1 cm ESV(Teich): 46.5 ml LA dimension: 4.3 cm EF(Teich): 57.8 % Doppler Measurements & Calculations MV E max cristel: MV P1/2t max cristel: Ao V2 max: LV V1 max P.5 cm/sec 192.2 cm/sec 190.2 cm/sec 5.3 mmHg MV A max cristel: MV P1/2t: 73.6 msec Ao max PG: LV V1 max: 90.5 cm/sec MVA(P1/2t): 3.0 cm2 14.5 mmHg 114.6 cm/sec MV E/A: 1.9 MV dec slope: 764.7 cm/sec2 MV dec time: 0.30 sec PA V2 max: TR max cristel: MV P1/2t-pr_phl: 97.7 cm/sec 263.3 cm/sec 76.7 msec PA max P.8 mmHgTR max P.7 mmHg Left Ventricle The left ventricle is normal in size. There is normal left ventricular wall thickness. LV EF is > than 60%. Left ventricular systolic function is normal. Doppler measurements suggest normal left ventricular diastolic function. The left ventricular wall motion is normal. There is no thrombus. There is no ventricular septal defect visualized. Right Ventricle The right ventricle is mildly dilated. There is mild right ventricular hypertrophy. The right ventricular systolic function is normal. Atria The right atrium is borderline dilated. The left atrium is mildly dilated. The interatrial septum is intact with no evidence for an atrial septal defect. There is no Doppler evidence for an interatrial shunt. Mitral Valve There is mild to moderate mitral annular calcification. There is no evidence of mitral valve prolapse. There is no vegetation seen on the mitral valve. There is no mitral valve stenosis. There is a trace amount of mitral regurgitation. Aortic Valve There is no aortic valvular vegetation. There is no aortic valve stenosis. There is no LVOT obstruction. There is aortic sclerosis without aortic stenosis. No aortic regurgitation is present. Tricuspid Valve There is no tricuspid stenosis. There is a mild amount of tricuspid regurgitation. There is mild pulmonary hypertension by echo. RVSP is 38 mm of Hg , with RA mean of 10. Pulmonic Valve There is no pulmonic valvular stenosis. There is no pulmonic valvular regurgitation. Great Vessels The aortic root is normal size. Effusions There is no pericardial effusion. : NITIN COOK > Denisse Martin
[2018-08-15] MEDS: SIMVASTATIN 10 MG TABLET PO SCH (23:17)
[2018-08-15] MEDS: ESCITALOPRAM OXALATE 10 MG TABLET PO SCH (23:17)
[2018-08-16] MEDS: NITROGLYCERIN 2% OINTMENT 1 GM PACKET TP SCH ×4 (00:44→17:43)
[2018-08-16] MEDS: HEPARIN SOD (PORCINE) 5,000 UNIT/ML 1 ML SYRINGE SUBCUT SCH ×3 (05:31→21:12)
[2018-08-16 05:53] LABS: ANION GAP 7 (5-19); BLOOD UREA NITROGEN 64 mg/dL (7-20); CALCIUM 8.1 mg/dL (8.4-10.2); CARBON DIOXIDE 31 mmol/L (22-30); CHLORIDE 102 mmol/L (98-107); GLUCOSE 115 mg/dL (75-110); POTASSIUM 3.9 mmol/L (3.6-5.0); SODIUM 140.2 mmol/L (137-145)
[2018-08-16] MEDS: METOPROLOL SUCCINATE 25 MG TAB.SR.24H PO SCH (07:43)
[2018-08-16] MEDS: FLUTICASONE/SALMETEROL DISKUS 500-50 MCG/DOSE IH SCH ×2 (09:12→21:12)
[2018-08-16] MEDS: ASPIRIN 81 MG TABLET, ENT COATED PO SCH (09:12)
[2018-08-16] MEDS: MULTIVITAMIN TABLET PO SCH (09:12)
[2018-08-16] MEDS: FUROSEMIDE 40 MG TABLET PO SCH ×2 (09:12→17:42)
[2018-08-16] MEDS: DOXAZOSIN MESYLATE 2 MG TABLET PO SCH ×2 (09:13→17:43)
[2018-08-16] MEDS: METOLAZONE 2.5 MG TABLET PO SCH (09:13)
[2018-08-16] MEDS: SITAGLIPTIN PHOSPHATE 25 MG TABLET PO SCH (09:13)
[2018-08-16] MEDS: FINASTERIDE 5 MG TABLET PO SCH (17:42)
--- NOTE | 2018-08-16 18:52 | PDOC PROGRESS REPORT ---
Subjective Progress Note for:: 08/16/18 Subjective:: No adverse events overnight. He said he wants to go home today. His urine output is been good. Breathing has been comfortable. No chest pain or shortness of breath. Reason For Visit: HEART FAILURE Physical Exam Vital Signs: Temp Pulse Resp BP Pulse Ox 98.3 F 70 16 145/47 H 92 08/16/18 15:54 08/16/18 15:54 08/16/18 15:54 08/16/18 15:54 08/16/18 15:54 Intake & Output 08/15/18 08/16/18 08/17/18 06:59 06:59 06:59 Intake Total 120 1011 237 Output Total 1250 2725 175 Balance -1130 -1714 62 Weight 118.2 kg 122.2 kg General appearance: PRESENT: no acute distress, cooperative, disheveled, morbidly obese Respiratory exam: PRESENT: accessory muscle use, decreased breath sounds, s ymmetrical, unlabored. ABSENT: crackles, rhonchi, tachypnea, wheezes Cardiovascular exam: PRESENT: RRR, +S1, +S2, 2 out of 6 systolic murmur Vascular exam: PRESENT: normal capillary refill GI/Abdominal exam: PRESENT: normal bowel sounds, soft. ABSENT: distended, guarding, rebound, tenderness Extremities exam: PRESENT: pedal edema, +2 edema - The edema overall is reduced, and is now distal to the knee, primarily pretibial and ankle ABSENT: clubbing Musculoskeletal exam: ABSENT: deformity, normal inspection Neurological exam: PRESENT: alert, awake, oriented to person, oriented to place, oriented to situation Psychiatric exam: PRESENT: flat affect Skin exam: PRESENT: other - Has cool pale erythema distal to the knee at the same level bilaterally consistent with chronic venous stasis. Results Laboratory Results: 08/14/18 09:45 08/16/18 04:50 08/16/18 04:50 Sodium 140.2 Potassium 3.9 Chloride 102 Carbon Dioxide 31 H Anion Gap 7 BUN 64 H Creatinine 3.55 H Est GFR ( Amer) 20 L Est GFR (Non-Af Amer) 17 L Glucose 115 H Calcium 8.1 L 08/14/18 08/14/18 08/14/18 09:45 13:25 19:24 Troponin I 0.130 0.145 0.147 NT-Pro-B Natriuret Pep [id number] H 08/15/18 08/15/18 08/15/18 01:28 07:12 07:12 Troponin I 0.117 0.105 NT-Pro-B Natriuret Pep [id number] H 08/16/18 04:50 Troponin I NT-Pro-B Natriuret Pep 53698 H Impressions: Chest X-Ray 08/14/18 09:21 IMPRESSION: Increased size of the cardiac silhouette with likely mild interstitial edema and small right effusion. Venous Doppler Study 08/14/18 09:40 IMPRESSION: No evidence of DVT or SVT in either leg. Subcutaneous edema, greatest on the left. Assessment & Plan - Diagnosis (1) Acute exacerbation of CHF (congestive heart failure) Qualifiers: Heart failure type: diastolic Qualified Code(s): I50.33 - Acute on chronic diastolic (congestive) heart failure Is this a current diagnosis for this admission?: Yes Plan: I have switched his Lasix back to p.o. today because his creatinine started to trend up. His legs are not as edematous and his chest sounds clear and he is on room air. We will also continue his beta-pelon. (2) CKD (chronic kidney disease) stage 4, GFR 15-29 ml/min Is this a current diagnosis for this admission?: Yes Plan: His creatinine bumped a bit but his GFR is not really changed. (3) Diabetes Qualifiers: Diabetes mellitus type: type 2 Diabetes mellitus complication status: with diabetic arthropathy Is this a current diagnosis for this admission?: Yes (4) Obesity (BMI 30-39.9) Is this a current diagnosis for this admission?: Yes - Time Time Spent with patient: 15-24 minutes
[2018-08-16] MEDS: SIMVASTATIN 10 MG TABLET PO SCH (21:12)
[2018-08-16] MEDS: ESCITALOPRAM OXALATE 10 MG TABLET PO SCH (21:13)
[2018-08-17] MEDS: NITROGLYCERIN 2% OINTMENT 1 GM PACKET TP SCH ×2 (00:08→05:21)
[2018-08-17] MEDS: HEPARIN SOD (PORCINE) 5,000 UNIT/ML 1 ML SYRINGE SUBCUT SCH (05:21)
[2018-08-17 06:37] LABS: ANION GAP 9 (5-19); BLOOD UREA NITROGEN 69 mg/dL (7-20); CARBON DIOXIDE 30 mmol/L (22-30); CHLORIDE 100 mmol/L (98-107); GLUCOSE 123 mg/dL (75-110); POTASSIUM 3.8 mmol/L (3.6-5.0); SODIUM 138.7 mmol/L (137-145)
[2018-08-17 08:47] VITALS: BP 161/44
[2018-08-17] MEDS: DOXAZOSIN MESYLATE 2 MG TABLET PO SCH (10:02)
[2018-08-17] MEDS: ASPIRIN 81 MG TABLET, ENT COATED PO SCH (10:02)
[2018-08-17] MEDS: METOPROLOL SUCCINATE 25 MG TAB.SR.24H PO SCH (10:02)
[2018-08-17] MEDS: FLUTICASONE/SALMETEROL DISKUS 500-50 MCG/DOSE IH SCH (10:02)
[2018-08-17] MEDS: SITAGLIPTIN PHOSPHATE 25 MG TABLET PO SCH (10:02)
[2018-08-17] MEDS: METOLAZONE 2.5 MG TABLET PO SCH (10:03)
[2018-08-17] MEDS: MULTIVITAMIN TABLET PO SCH (10:03)
[2018-08-17] MEDS: FUROSEMIDE 40 MG TABLET PO SCH (10:03)
--- NOTE | 2018-08-17 15:27 | PDOC DISCHARGE SUMMARY ---
General - Admit/Disc Date/PCP Admission Date/Primary Care Provider: 08/14/18 12:50 Discharge Date: 08/17/18 - Discharge Diagnosis (1) Acute exacerbation of CHF (congestive heart failure) Is this a current diagnosis for this admission?: Yes Summary: He was noncompliant with his diet at home but has been taking his medications. He responded very well to diuresis and we got a lot of excess fluid off of him. Cautioned him to follow his dietary restrictions and take his medications as directed. (2) CKD (chronic kidney disease) stage 4, GFR 15-29 ml/min Is this a current diagnosis for this admission?: Yes Summary: His kidneys tolerated diuresis very well. His creatinine stayed in his usual range, which was in the low threes. (3) Diabetes Is this a current diagnosis for this admission?: Yes Summary: He was managed with his home regimen and a consistent carbohydrate diet (4) Obesity (BMI 30-39.9) Is this a current diagnosis for this admission?: Yes Summary: Encouraged lifestyle modification, but he does not get around very well and so he does not ambulate a whole lot. - Additional Information Resuscitation Status: Do Not Resuscitate Discharge Diet: Cardiac, Diabetic Discharge Activity: Balance Activity w/Rest, Supervised Activity, Weigh Daily Home Medications: Albuterol Sulfate [Proair HFA] 2 puff IH Q4HP PRN 12/18/17 Aspirin [Adult Low Dose Aspirin EC] 81 mg PO DAILY 12/18/17 Escitalopram Oxalate [Lexapro] 20 mg PO DAILY 12/18/17 Finasteride [Proscar 5 mg Tablet] 5 mg PO DAILY 12/18/17 Fluticasone/Salmeterol [Advair 500-50 Diskus 28 Dose] 1 puff IH Q12 12/18/17 Furosemide [Lasix 40 mg Tablet] 40 mg PO BID 12/18/17 Gabapentin [Neurontin 300 mg Capsule] 300 mg PO TID 12/18/17 Isosorbide Mononitrate [Imdur 30 mg Tablet.er] 30 mg PO DAILY 12/18/17 Potassium Chloride [Klor-Con M20] 10 meq PO Q48H 12/18/17 Prazosin HCl [Minipress] 2 mg PO BID 12/18/17 Risperidone [Risperdal 1 mg Tablet] 1 mg PO DAILY 12/18/17 Acetaminophen/Diphenhydramine [Tylenol Pm Ex-Strength Caplet] 2 each PO HSP PRN 08/14/18 Albuterol Sulfate [Ventolin 0.083% Neb 2.5 mg/3 mL Ampul] 1 vial NEB RTQ6HP PRN 08/14/18 Docusate Sodium [Colace 100 mg Capsule] 100 mg PO QHS 08/14/18 Mirabegron [Myrbetriq] 50 mg PO DAILY 08/14/18 History of Present Illness History of Present Illness: LAURO CAI is a 78 year old male with a history of diastolic heart failure and multiple chronic comorbidities who presents with shortness of breath. He apparently has had worsening swelling of his lower extremities over the past couple of weeks. The last few days he has had orthopnea. His family will try to convince him to come to the hospital but he did not want to go. Earlier this morning he woke his up and told her that he needed to go to the hospital because his breathing was gotten so bad. He does not check his weight on a daily basis. His said he does not particularly pay attention to dietary or fluid restrictions. He has not had any changes in any of his medications and his that he is been taking all of them as directed. He was fairly somnolent in the ER, and his said he had not really slept much in the last few days, so when they put oxygen on him and his breathing relaxed he was able to finally fall asleep. He denied any chest pain on presentation. Hospital Course Hospital Course: He responded very well to diuresis. I had him on IV Lasix for a few days and we got a lot of excess fluid off of him. His kidneys tolerated diuresis well. We were able to get him back on his home medications, because his main issue was not that his medications were not right, but rather that he was noncompliant with his dietary restrictions. His labs and examination were reassuring and he was discharged in good condition. Physical Exam Vital Signs: Temp Pulse Resp BP Pulse Ox 98.0 F 69 20 161/44 H 90 L 08/17/18 10:08 08/17/18 10:08 08/17/18 10:08 08/17/18 07:33 08/17/18 10:08 Intake & Output 08/16/18 08/17/1819 06:59 06:59 06:59 Intake Total 1011 473 Output Total 8054 5958 Balance -1714 -1402 Weight 122.2 kg 116.4 kg General appearance: PRESENT: no acute distress, cooperative, disheveled, morbidly obese Respiratory exam: PRESENT: accessory muscle use, decreased breath sounds, symmetrical, unlabored. ABSENT: crackles, rhonchi, tachypnea, wheezes Cardiovascular exam: PRESENT: RRR, +S1, +S2, 2 out of 6 systolic murmur Vascular exam: PRESENT: normal capillary refill GI/Abdominal exam: PRESENT: normal bowel sounds, soft. ABSENT: distended, guarding, rebound, tenderness Extremities exam: PRESENT: pedal edema, +2 edema - The edema overall is reduced, and is now distal to the knee, primarily pretibial and ankle ABSENT: clubbing Musculoskeletal exam: ABSENT: deformity, normal inspection Neurological exam: PRESENT: alert, awake, oriented to person, oriented to place, oriented to situation Psychiatric exam: PRESENT: flat affect Skin exam: PRESENT: other - Has cool pale erythema distal to the knee at the same level bilaterally consistent with chronic venous stasis. Results Laboratory Results: 08/14/18 09:45 08/17/18 05:01 08/17/18 05:01 Sodium 138.7 Potassium 3.8 Chloride 100 Carbon Dioxide 30 Anion Gap 9 BUN 69 H Creatinine 3.36 H Est GFR ( Amer) 22 L Est GFR (Non-Af Amer) 18 L Glucose 123 H Calcium 8.0 L 08/14/18 08/14/18 08/14/18 09:45 13:25 19:24 Troponin I 0.130 0.145 0.147 NT-Pro-B Natriuret Pep 17513 H 08/15/18 08/15/18 08/15/18 01:28 07:12 07:12 Troponin I 0.117 0.105 NT-Pro-B Natriuret Pep 36946 H 08/16/18 08/17/18 04:50 05:01 Troponin I NT-Pro-B Natriuret Pep 05751 H 51901 H Impressions: Chest X-Ray 08/14/18 09:21 IMPRESSION: Increased size of the cardiac silhouette with likely mild interstitial edema and small right effusion. Venous Doppler Study 08/14/18 09:40 IMPRESSION: No evidence of DVT or SVT in either leg. Subcutaneous edema, greatest on the left. Qualifiers - * PATIENT BEING DISCHARGED WITH ANY OF THE FOLLOWING DIAGNOSIS: Heart Failure HF Pt being discharged on ACEI for LVEF less than 40%?: No Reason(s) for not prescribing ACEI:: Drug intolerance HF Pt being discharged on ARBS for LVEF less than 40%?: No Reason(s) for not prescribing ARBS:: Not indicated - EF is greater than 40% HF Pt with Afib discharged with Warfarin?: No Reason(s) for not prescribing Warfarin:: Not indicated - Not in atrial fibrillation HF Pt discharged on evidence-based Beta Ana María:: Yes
== END 2018-08-17 11:45 | disposition home or self-care (01) | DRG 291 ==
LOC: ER 08:24 → EH 12:50 → 3W 18:37
PROVIDERS: ADMIT Internal Medicine; ATTEND Internal Medicine
PROC: 5A09457 Assistance with Respiratory Ventilation, 24-96 Consecutive Hours, Continuous Positive Airway Pressure (ICD-10-PCS; principal; 2018-08-14)
DX: I13.0 Hypertensive heart and chronic kidney disease with heart failure and stage 1 through stage 4 chronic kidney disease, or unspecified chronic kidney disease (principal); I50.33 Acute on chronic diastolic (congestive) heart failure; N18.4 Chronic kidney disease, stage 4 (severe); E11.22 Type 2 diabetes mellitus with diabetic chronic kidney disease; I87.8 Other specified disorders of veins; E78.5 Hyperlipidemia, unspecified; E11.51 Type 2 diabetes mellitus with diabetic peripheral angiopathy without gangrene; E66.9 Obesity, unspecified; Z66 Do not resuscitate; Z87.891 Personal history of nicotine dependence; Z91.013 Allergy to seafood; I25.2 Old myocardial infarction; Z79.899 Other long term (current) drug therapy; Z83.3 Family history of diabetes mellitus; Z91.11 Patient's noncompliance with dietary regimen
CPT/HCPCS: 36415; 71045; 80048; 80053; 83880; 84484; 85025; 86850; 86900; 86901; 93005; 93010; 93306; 93970; 94660; 96374; 99291; J1644; J1940; J3490

== ENCOUNTER 2018-09-04 10:40 | Inpatient (IN) | payer MEDICARE, OTHER ==
[2018-09-04] MEDS ORDERED: ASPIRIN 81 MG TABLET, CHEWABLE PO ONE (10:59)
--- NOTE | 2018-09-04 11:02 | ER Document Report ---
ED General - General Chief Complaint: Shortness Of Breath Stated Complaint: DIFFICULTY BREATHING Time Seen by Provider: 09/04/18 10:55 Primary Care Provider: YELENA DOMINGO MD [Primary Care Provider] - Follow up as needed Notes: 70-year-old male history of CHF is having increasing trouble breathing over the last several days. The patient stating he is have to sleep in his recliner the last several days he could not lay flat. He is also noticed his legs have been swelling. He has had some dull chest discomfort which is new. He states that gets worse with exertion. He states he is short of breath at rest but the chest discomfort seems to be more so with exertion. He denies nausea vomiting. Denies diaphoresis. Denies fever chills cough or sore throat denies black bloody or tarry stools denies night sweats hemoptysis or gland swelling. TRAVEL OUTSIDE OF THE [place] IN LAST 30 DAYS: No - Related Data Allergies/Adverse Reactions: enalapril [Enalapril] Allergy (Severe, Verified 08/14/18 17:11) Angioneurotic Edema shrimp Allergy (Verified 08/14/18 17:11) Past Medical History - Social History Smoking Status: Unknown if Ever Smoked Family History: DM, Other - no FH of familial angioedema - Past Medical History Cardiac Medical History: Reports: Hx Congestive Heart Failure, Hx Heart Attack - 2007, Hx Hypercholesterolemia, Hx Hypertension Denies: Hx Coronary Artery Disease Pulmonary Medical History: Reports: Hx COPD Denies: Hx Asthma, Hx Bronchitis, Hx Pneumonia Neurological Medical History: Denies: Hx Cerebrovascular Accident, Hx Seizures Endocrine Medical History: Reports: Hx Diabetes Mellitus Type 2 Renal/ Medical History: Reports: Hx End Stage Renal Disease. Denies: Hx Peritoneal Dialysis GI Medical History: Reports: Hx Gastroesophageal Reflux Disease Musculoskeletal Medical History: Reports Hx Arthritis - GENERALIZED THROUGHOUT Psychiatric Medical History: Reports: Hx Depression Past Surgical History: Reports: Hx Orthopedic Surgery - toe, Other - Dialysis catheter - Immunizations Hx Diphtheria, Pertussis, Tetanus Vaccination: No Hx Pneumococcal Vaccination: 08/06/14 Review of Systems - Review of Systems Constitutional: denies: Chills, Diaphoresis, Fever Cardiovascular: Chest pain, Orthopnea, Dyspnea, Edema Respiratory: Cough, Short of breath Gastrointestinal: denies: Abdominal pain, Nausea, Vomiting -: Yes All other systems reviewed and negative Physical Exam - Vital signs Vitals: Temp Pulse Resp BP Pulse Ox 98.0 F 74 24 H 128/36 H 98 09/04/18 10:49 09/04/18 10:49 09/04/18 10:49 09/04/18 10:49 09/04/18 10:49 - Notes Notes: GENERAL_APPEARANCE: well_nourished, alert, cooperative, obvious respiratory di stress VITALS: reviewed, see vital signs table. HEAD: no_swelling\tenderness on the head. EYES: PERRL, EOMI, conjunctiva_clear. NOSE: no_nasal_discharge. MOUTH: (-)decreased moisture. THROAT: no_throat_inflammation, no_airway_obstruction. no_lymphadenopathy NECK: supple, no_neck_tenderness, (-)thyromegaly. BACK: no_back_tenderness. CHEST_WALL: no_chest_tenderness. LUNGS: no_wheezing, bibasilar rales, no_rhonchi, mild accessory muscle use, fair air exchange bilateral. HEART: normal_rate, normal_rhythm, normal_S1, normal_S2, (-)S3, (-)S4, no_murmur, no_rub. ABDOMEN: normal_BS, soft, no_abd_tenderness, (-)guarding, (-)rebound, no_organomegaly, no_abd_masses. EXTREMITIES: good pulses in all_extremities, no_swelling\tenderness in the extremities, 2+ pitting_edema. SKIN: warm, dry, good_color, no_rash. Slight redness lower extremities MENTAL_STATUS: speech_clear, oriented_X_3, normal_affect, responds_appropriately to questions. Course - Re-evaluation Re-evalutation: 09/04/18 11:02 Elderly male with a CHF history presents with a CHF exacerbation. Patient is having exertional dyspnea orthopnea and increasing edema. The patient stated that the Lasix is not working for him as well anymore he is not urinating as much he was in the hospital 2 weeks ago for the same. He was doing well up to the last several days when he has been noticing decrease in urine output and increasing shortness of breath. 09/04/18 14:22 Patient's BNP is elevated. He does sound wet on exam. Chest x-ray showed cardiomegaly and some very mild cephalization but no overt failure however clinically he does sound as if he is in failure will speak with the hospitalist and continue to diurese him in the hospital. He has been on Lasix at home but his urinary flow has decreased. He does seem to have some acute kidney injury here. - Vital Signs Vital signs: Temp Pulse Resp BP Pulse Ox 98.0 F 70 24 H 128/36 H 99 09/04/18 10:49 09/04/18 11:21 09/04/18 10:49 09/04/18 10:49 09/04/18 11:20 - Laboratory Result Diagrams: 09/04/18 11:10 09/04/18 11:10 Laboratory results interpreted by me: 09/04/18 09/04/18 09/04/18 11:10 11:10 11:10 RBC 2.82 L Hgb 8.2 L Hct 25.4 L RDW 15.6 H Lymphocytes % 11.0 L Eosinophils % 6.9 H Potassium 5.1 H BUN 53 H Creatinine 3.24 H Est GFR ( Amer) 23 L Est GFR (Non-Af Amer) 19 L Glucose 177 H AST 13 L NT-Pro-B Natriuret Pep 9310 H Discharge - Discharge Clinical Impression: Acute exacerbation of CHF (congestive heart failure) Qualifiers: Heart failure type: systolic Qualified Code(s): I50.23 - Acute on chronic systolic (congestive) heart failure Condition: Fair Disposition: ADMITTED OBSERVATION Admitting Provider: Hospitalist Unit Admitted: Telemetry Referrals: YELENA DOMINGO MD [Primary Care Provider] - Follow up as needed
[2018-09-04 11:31] LABS: ABSOLUTE BASOPHILS # (AUTO) 0.1 10^3/uL (0.0-0.2); ABSOLUTE EOSINOPHILS # (AUTO) 0.5 10^3/uL (0.0-0.6); ABSOLUTE LYMPHOCYTES (AUTO) 0.8 10^3/uL (0.5-4.7); ABSOLUTE MONOCYTES (AUTO) 0.4 10^3/uL (0.1-1.4); ABSOLUTE NEUT (AUTO) 5.1 10^3/uL (1.7-8.2); EOSINOPHILS % (AUTO) 6.9 % (0-6); HEMATOCRIT 25.4 % (37.9-51.0); HEMOGLOBIN 8.2 g/dL (13.5-17.0); INTERNATIONAL RATION (INR) 1.03; MEAN CORPUSCULAR HEMOGLOBIN 28.9 pg (27.0-33.4); MEAN CORPUSCULAR HGB CONC 32.2 g/dL (32.0-36.0); MEAN CORPUSCULAR VOLUME 90 fl (80-97); MONOCYTES % (AUTO) 6.3 % (3-13); PLATELET COUNT 154 10^3/uL (150-450); RED BLOOD COUNT 2.82 10^6/uL (4.35-5.55); RED CELL DISTRIBUTION WIDTH 15.6 % (11.5-14.0); SEGMENTED NEUTROPHILS % (AUTO) 74.8 % (42-78); TOTAL CELLS COUNTED % (AUTO) 100 %
[2018-09-04 11:34] LABS: WHITE BLOOD COUNT 6.8 10^3/uL (4.0-10.5)
[2018-09-04 11:42] LABS: ALANINE AMINOTRANSFERASE 23 U/L (21-72); ALBUMIN 3.5 g/dL (3.5-5.0); ALKALINE PHOSPHATASE 71 U/L (38-126); ANION GAP 10 (5-19); ASPARTATE AMINO TRANSFERASE 13 U/L (17-59); BILIRUBIN,DIRECT 0.2 mg/dL (0.0-0.4); BILIRUBIN,TOTAL 0.4 mg/dL (0.2-1.3); BLOOD UREA NITROGEN 53 mg/dL (7-20); CALCIUM 8.5 mg/dL (8.4-10.2); CARBON DIOXIDE 26 mmol/L (22-30); CHLORIDE 107 mmol/L (98-107); CREATINE KINASE 112 U/L (55-170); GLUCOSE 177 mg/dL (75-110); POTASSIUM 5.1 mmol/L (3.6-5.0); SODIUM 142.9 mmol/L (137-145); TOTAL PROTEIN 6.8 g/dL (6.3-8.2)
[2018-09-04 12:02] LABS: CREATINE KINASE MB 4.05 ng/mL (<4.55); TROPONIN I 0.029 ng/mL
--- NOTE | 2018-09-04 12:11 | RADIOLOGY REPORT (SQ) ---
EXAM DESCRIPTION: CHEST SINGLE VIEW COMPLETED DATE/TIME: 09/04/2018 11:32 am REASON FOR STUDY: sob COMPARISON: Chest films 08/14/2018, 12/18/2017, 03/15/2007 EXAM PARAMETERS: NUMBER OF VIEWS: One view. TECHNIQUE: Single frontal radiographic view of the chest acquired. RADIATION DOSE: NA LIMITATIONS: None. FINDINGS: LUNGS AND PLEURA: No opacities, masses or pneumothorax. No pleural effusion. MEDIASTINUM AND HILAR STRUCTURES: No masses. Contour normal. HEART AND VASCULAR STRUCTURES: Stable moderate cardiomegaly BONES: No acute findings. HARDWARE: None in the chest. OTHER: No other significant finding. IMPRESSION: Stable moderate cardiomegaly. No acute findings TECHNICAL DOCUMENTATION: JOB ID: [id number] [employer]- All Rights Reserved Reading location - IP/workstation name: [email or web address]
--- NOTE | 2018-09-04 13:56 | EKG REPORT ---
SEVERITY:- BORDERLINE ECG - SINUS RHYTHM BORDERLINE PROLONGED QT INTERVAL : Confirmed by: Sagar Rogers MD 04-Sep-2018 13:56:20
[2018-09-04] MEDS ORDERED: FUROSEMIDE INJ/PF 100 MG/10 ML SDV IV ONE (14:21)
[2018-09-04] MEDS ORDERED: NITROGLYCERIN 2% OINTMENT 1 GM PACKET TP ONE (14:21)
--- NOTE | 2018-09-04 15:58 | PDOC H&P ---
History of Present Illness Admission Date/PCP: 09/04/18 15:23 YELENA DOMINGO MD Patient complains of: pedal edema, SOB History of Present Illness: LAURO CAI is a 78 year old male with a PMH of CHF, CKD 4, COPD, DM 2 with neuropathy, proteinuria, RAJIV not compliant with CPAP, was recently admitted for fluid overload who presented with increasing pedal edema and SOB. Patient says he has been having increasing SOB and orthopnea in the past 7 days. He has chronic bipedal edema and says this has been worsening again in the past week. He denies chest pain. No fever, chills or cough. He was given 80 mg of IV Lasix in the ER. Past Medical History Cardiac Medical History: Reports: Congestive Heart Failure, Myocardial Infarction - 2007, Hyperlipidema, Hypertension Denies: Coronary Artery Disease Pulmonary Medical History: Reports: Chronic Obstructive Pulmonary Disease (COPD) Denies: Asthma, Bronchitis, Pneumonia Neurological Medical History: Denies: Seizures Endocrine Medical History: Reports: Diabetes Mellitus Type 2 Renal/ Medical History: Reports: End Stage Renal Disease GI Medical History: Reports: Gastroesophageal Reflux Disease Musculoskeltal Medical History: Reports: Arthritis - GENERALIZED THROUGHOUT Psychiatric Medical History: Reports: Depression Hematology: Reports: Anemia Past Surgical History Past Surgical History: Reports: Orthopedic Surgery - toe, Other - Dialysis catheter Social History Smoking Status: Unknown if Ever Smoked Frequency of Alcohol Use: Occasional Hx Recreational Drug Use: No Drugs: None Hx Prescription Drug Abuse: No Family History Family History: DM, Other - no FH of familial angioedema Parental Family History Reviewed: Yes - no premature CAD Children Family History Reviewed: No Sibling(s) Family History Reviewed.: No Medication/Allergy Home Medications: Albuterol Sulfate [Proair HFA] 2 puff IH Q4HP PRN 12/18/17 Aspirin [Adult Low Dose Aspirin EC] 81 mg PO DAILY 12/18/17 Escitalopram Oxalate [Lexapro] 20 mg PO DAILY 12/18/17 Finasteride [Proscar 5 mg Tablet] 5 mg PO DAILY 12/18/17 Fluticasone/Salmeterol [Advair 500-50 Diskus 28 Dose] 1 puff IH Q12 12/18/17 Gabapentin [Neurontin 300 mg Capsule] 300 mg PO Q8 12/18/17 Isosorbide Mononitrate [Imdur 30 mg Tablet.er] 30 mg PO DAILY 12/18/17 Potassium Chloride [Klor-Con M20] 20 meq PO DAILY 12/18/17 Risperidone [Risperdal 1 mg Tablet] 1 mg PO DAILY 12/18/17 Acetaminophen/Diphenhydramine [Tylenol Pm Ex-Strength Caplet] 2 each PO HSP PRN 08/14/18 Docusate Sodium [Colace 100 mg Capsule] 100 mg PO BID 08/14/18 Mirabegron [Myrbetriq] 50 mg PO DAILY 08/14/18 Prazosin HCl [Minipress] 10 mg PO TID 09/04/18 Furosemide [Lasix 40 mg Tablet] 40 mg PO BID #60 tablet 09/06/18 Allergies/Adverse Reactions: enalapril [Enalapril] Allergy (Severe, Verified 09/04/18 20:19) Angioneurotic Edema shrimp Allergy (Verified 09/04/18 20:19) Review of Systems All systems: reviewed and no additional remarkable complaints except as stated - as mentioned Physical Exam Vital Signs: Temp Pulse Resp BP Pulse Ox 98.0 F 70 24 H 128/36 H 99 09/04/18 10:49 09/04/18 11:21 09/04/18 10:49 09/04/18 10:49 09/04/18 11:20 Intake & Output 09/03/18 09/04/18 09/05/18 06:59 06:59 06:59 Weight 272 lb 7.861 oz General appearance: PRESENT: no acute distress, obese Head exam: PRESENT: atraumatic, normocephalic Eye exam: PRESENT: conjunctiva pink, EOMI, PERRLA. ABSENT: scleral icterus Ear exam: PRESENT: normal external ear exam Mouth exam: PRESENT: moist, tongue midline Neck exam: ABSENT: carotid bruit, JVD, lymphadenopathy, thyromegaly Respiratory exam: PRESENT: rales - on the bases. ABSENT: rhonchi, wheezes Cardiovascular exam: PRESENT: RRR. ABSENT: diastolic murmur, rubs, systolic murmur Vascular exam: PRESENT: normal capillary refill GI/Abdominal exam: PRESENT: normal bowel sounds, soft. ABSENT: distended, guarding, mass, organolmegaly, rebound, tenderness Rectal exam: PRESENT: deferred Extremities exam: PRESENT: +2 edema Neurological exam: PRESENT: alert, awake, oriented to person, oriented to place, oriented to time, oriented to situation, CN II-XII grossly intact. ABSENT: motor sensory deficit Results Laboratory Results: 09/04/18 11:10 09/04/18 11:10 09/04/18 09/04/18 11:10 11:10 WBC 6.8 RBC 2.82 L Hgb 8.2 L Hct 25.4 L MCV 90 MCH 28.9 MCHC 32.2 RDW 15.6 H Plt Count 154 Seg Neutrophils % 74.8 Lymphocytes % 11.0 L Monocytes % 6.3 Eosinophils % 6.9 H Basophils % 1.0 Absolute Neutrophils 5.1 Absolute Lymphocytes 0.8 Absolute Monocytes 0.4 Absolute Eosinophils 0.5 Absolute Basophils 0.1 Sodium 142.9 Potassium 5.1 H Chloride 107 Carbon Dioxide 26 Anion Gap 10 BUN 53 H Creatinine 3.24 H Est GFR ( Amer) 23 L Est GFR (Non-Af Amer) 19 L Glucose 177 H Calcium 8.5 Total Bilirubin 0.4 AST 13 L ALT 23 Alkaline Phosphatase 71 Total Protein 6.8 Albumin 3.5 09/04/18 09/04/18 09/04/18 11:10 11:10 15:06 Creatine Kinase 112 CK-MB (CK-2) 4.05 Troponin I 0.029 0.028 NT-Pro-B Natriuret Pep 9310 H Impressions: Chest X-Ray 09/04/18 10:59 IMPRESSION: Stable moderate cardiomegaly. No acute findings Assessment & Plan - Diagnosis (1) Fluid overload Is this a current diagnosis for this admission?: Yes Plan: Patient was recently admitted for CHF exacerbation. He had a recent echo which shows normal EF and normal diastolic function. He does appear fluid overloaded. This is likely more related to his CKD 5. He is not on dialysis yet and still makes urine but says he has had a fistula placed per his hospitality director in anticipation of LAST REPAIRER HELPER in the future. He was given 80 mg of Lasix in the ER. Will continue IV Lasix at 40 mg IV q8 for now. I&Os. - Time Time Spent: 30 to 50 Minutes
[2018-09-04] MEDS ORDERED: DEXTROSE 50%-WATER 25 GM/50 ML DISP.SYRIN IV PRN ×2 (16:36)
[2018-09-04] MEDS ORDERED: GLUCAGON,HUMAN RECOMB 1 MG INJ IM PRN (16:36)
[2018-09-04] MEDS ORDERED: DEXTROSE 40% GEL 15 GM TUBE PO PRN ×2 (16:36)
[2018-09-04] MEDS: INSULIN LISPRO 100 UNIT/ML 3 ML VIAL SUBCUT SCH (21:31)
[2018-09-04] MEDS: HEPARIN SOD (PORCINE) 5,000 UNIT/ML 1 ML SYRINGE SUBCUT SCH (21:37)
[2018-09-04] MEDS: FUROSEMIDE INJ/PF 40 MG/4 ML SDV IV SCH (21:38)
[2018-09-05 05:01] LABS: ABSOLUTE BASOPHILS # (AUTO) 0.1 10^3/uL (0.0-0.2); ABSOLUTE EOSINOPHILS # (AUTO) 0.5 10^3/uL (0.0-0.6); ABSOLUTE LYMPHOCYTES (AUTO) 0.9 10^3/uL (0.5-4.7); ABSOLUTE MONOCYTES (AUTO) 0.4 10^3/uL (0.1-1.4); ABSOLUTE NEUT (AUTO) 3.8 10^3/uL (1.7-8.2); BASOPHILS % (AUTO) 1.3 % (0-2); EOSINOPHILS % (AUTO) 8.1 % (0-6); HEMOGLOBIN 8.5 g/dL (13.5-17.0); LYMPHOCYTES % (AUTO) 15.6 % (13-45); MEAN CORPUSCULAR HEMOGLOBIN 28.7 pg (27.0-33.4); MEAN CORPUSCULAR HGB CONC 32.6 g/dL (32.0-36.0); MEAN CORPUSCULAR VOLUME 88 fl (80-97); MONOCYTES % (AUTO) 7.1 % (3-13); PLATELET COUNT 149 10^3/uL (150-450); RED BLOOD COUNT 2.95 10^6/uL (4.35-5.55); RED CELL DISTRIBUTION WIDTH 15.4 % (11.5-14.0); SEGMENTED NEUTROPHILS % (AUTO) 67.9 % (42-78); TOTAL CELLS COUNTED % (AUTO) 100 %; WHITE BLOOD COUNT 5.6 10^3/uL (4.0-10.5)
[2018-09-05] MEDS: FUROSEMIDE INJ/PF 40 MG/4 ML SDV IV SCH ×3 (05:24→23:57)
[2018-09-05 05:31] LABS: ANION GAP 8 (5-19); BLOOD UREA NITROGEN 53 mg/dL (7-20); CALCIUM 8.4 mg/dL (8.4-10.2); CARBON DIOXIDE 27 mmol/L (22-30); CHLORIDE 108 mmol/L (98-107); GLUCOSE 104 mg/dL (75-110); POTASSIUM 4.7 mmol/L (3.6-5.0); SODIUM 143.3 mmol/L (137-145)
[2018-09-05] MEDS: INSULIN LISPRO 100 UNIT/ML 3 ML VIAL SUBCUT SCH ×4 (08:49→21:51)
[2018-09-05] MEDS: HEPARIN SOD (PORCINE) 5,000 UNIT/ML 1 ML SYRINGE SUBCUT SCH ×2 (10:08→21:51)
[2018-09-05] MEDS: ASPIRIN 81 MG TABLET, CHEWABLE PO SCH (10:13)
[2018-09-05 10:31] LABS: ABSOLUTE RETICS # 0.054 10^6/uL (0.028-0.122); RETICULOCYTE COUNT (AUTO) 1.93 % (0.66-2.85)
[2018-09-05 11:25] LABS: IRON(TIBC) 35.1 ug/dL (49-181); PHOSPHORUS 3.8 mg/dL (2.5-4.5)
[2018-09-05 11:40] LABS: APPEARANCE,URINE CLEAR; BILIRUBIN,URINE NEGATIVE (NEGATIVE); COLOR,URINE STRAW; GLUCOSE, URINE 50 mg/dL (NEGATIVE); KETONES,URINE NEGATIVE (NEGATIVE); LEUKOCYTE ESTERASE,URINE NEGATIVE (NEGATIVE); NITRITE,URINE NEGATIVE (NEGATIVE); PROTEIN,URINE 100 mg/dL (NEGATIVE); UROBILINOGEN,URINE NEGATIVE mg/dL (<2.0)
[2018-09-05 12:00] LABS: UR PRO/CREAT RATIO RESULT 3.7 mg/mg (0.0-0.2); URINE CREATININE 46.9 mg/dL (22-328); URINE PROTEIN 175.4 mg/dL (<12)
[2018-09-05 12:36] LABS: FOLATE > 20.00 ng/mL (>2.76)
--- NOTE | 2018-09-05 19:19 | PDOC CONSULTATION ---
Consultation Consult Date: 09/05/18 Attending physician:: MIRI DAWKINS Consult reason:: I was asked to see the patient due to chronic kidney disease. History of Present Illness Admission Date/PCP: 09/05/18 11:52 YELENA DOMINGO MD History of Present Illness: LAURO CAI is a 78 year old male with history of chronic kidney disease stage IV, coronary artery disease, hypertension, diabetes mellitus type 2, and COPD who was admitted yesterday because of shortness of breath and increasing lower extremity edema. He was given Lasix 80 mg IV in the emergency room. He is currently on Lasix 40 mg IV every 12 hours. Chest x-ray on presentation was unremarkable. He had an echocardiogram on August 15, 2018 during previous hospitalization which showed normal left ventricular ejection fraction greater than 60% and normal diastolic function. Patient said that he noticed increasing pitting lower extremity edema last 3-4 days associated with shortness of breath. He denies any chest pains. He also denies any nausea, vomiting, fatigue or somnolence. He claims that his appetite is good. When he came in he has a BUN of 53, creatinine of 3.24, and estimated GFR of 19. Today he has a BUN of 53, creatinine of 3.3, estimated GFR of 18. Review of records for the past year revealed that his BUN ranged from 55-60, creatinine of 2.7-3.76, with estimated GFR of 16-23. Patient states that following up with his rn surgery icu, [facility] in [place]. The last time he saw him was a year ago he was not quite sure. Patient was not really a good historian. He claims that he has a follow-up visit coming up soon. Patient denies any problem with urination including hematuria or foamy urine. He did not tell me if he has proteinuria. He has a right wrist AV fistula for the past 2 years. Today he is feeling better, the swelling is improving, to go home. Past Medical History Cardiac Medical History: Reports: Coronary Artery Disease, Hyperlipidemia, Hypertension-primary, Myocardial Infarction - 2008 Pulmonary Medical History: Reports: Chronic Obstructive Pulmonary Disease (COPD) Endocrine Medical History: Reports: Diabetes Mellitus Type 2 Renal/ Medical History: Reports: Benign Prostatic Hyperplasia, Chronic Kidney Disease Stage IV GI Medical History: Reports: Gastroesophageal Reflux Disease Musculoskeltal Medical History: Reports: Arthritis - GENERALIZED THROUGHOUT Psychiatric Medical History: Reports: Depression Hematology Medical History: Reports Anemia of Chronic Kidney Disease Past Surgical History Past Surgical History: Reports: Dialysis Access Surgery AVF, Orthopedic Surgery - toe surgery for hammertoes, Transurethral Resection Social History Information Source: Patient Lives with: Spouse/Significant other Smoking Status: Former Smoker - Smoked for 65 years but quit on 06-21-17 Cigarettes Packs Per Day: 2 Cigars Per Day: 0 Pipes Per Day: 0 Number of Years Smokin Last Time Smoked: 08/06/2016 Frequency of Alcohol Use: None Hx Recreational Drug Use: No Drugs: None Hx Prescription Drug Abuse: No Family History Family History: CAD - Brother and parents, DM - Mother, brother and sister, Malignancy - Right kidney cancer on her mother Parental Family History Reviewed: Yes Children Family History Reviewed: Yes Sibling(s) Family History Reviewed.: Yes Medication/Allergy Home Medications: Albuterol Sulfate [Proair HFA] 2 puff IH Q4HP PRN 12/18/17 Aspirin [Adult Low Dose Aspirin EC] 81 mg PO DAILY 12/18/17 Escitalopram Oxalate [Lexapro] 20 mg PO DAILY 12/18/17 Finasteride [Proscar 5 mg Tablet] 5 mg PO DAILY 12/18/17 Fluticasone/Salmeterol [Advair 500-50 Diskus 28 Dose] 1 puff IH Q12 12/18/17 Furosemide [Lasix 40 mg Tablet] 40 mg PO DAILY 12/18/17 Gabapentin [Neurontin 300 mg Capsule] 300 mg PO Q8 12/18/17 Isosorbide Mononitrate [Imdur 30 mg Tablet.er] 30 mg PO DAILY 12/18/17 Potassium Chloride [Klor-Con M20] 20 meq PO DAILY 12/18/17 Risperidone [Risperdal 1 mg Tablet] 1 mg PO DAILY 12/18/17 Acetaminophen/Diphenhydramine [Tylenol Pm Ex-Strength Caplet] 2 each PO HSP PRN 08/14/18 Albuterol Sulfate [Ventolin 0.083% Neb 2.5 mg/3 mL Ampul] 1 vial NEB Q8HP PRN 08/14/18 Docusate Sodium [Colace 100 mg Capsule] 100 mg PO BID 08/14/18 Mirabegron [Myrbetriq] 50 mg PO DAILY 08/14/18 Prazosin HCl [Minipress] 10 mg PO TID 09/04/18 Allergies/Adverse Reactions: enalapril [Enalapril] Allergy (Severe, Verified 09/04/18 20:19) Angioneurotic Edema shrimp Allergy (Verified 09/04/18 20:19) Review of Systems All systems: reviewed and no additional remarkable complaints except as stated Review of Systems: Constitutional: ABSENT: chills, fatigue, fever(s), headache(s), weight gain, weight loss Eyes: ABSENT: visual disturbances Ears: ABSENT: hearing changes Cardiovascular: ABSENT: chest pain, orthropnea, palpitations; admits shortness of breath lower extremity edema Respiratory: ABSENT: cough, dyspnea, hemoptysis Gastrointestinal: ABSENT: abdominal pain, constipation, diarrhea, hematemesis, hematochezia, nausea, vomiting Genitourinary: ABSENT: dysuria, hematuria Musculoskeletal: ABSENT: joint swelling Integumentary: ABSENT: rash, wounds Neurological: ABSENT: abnormal gait, abnormal speech, confusion, dizziness, focal weakness, numbness, syncope Psychiatric: ABSENT: anxiety, depression Endocrine: ABSENT: cold intolerance, heat intolerance, polydipsia, polyuria Hematologic/Lymphatic: ABSENT: easy bleeding, easy bruising, lymphadenopathy Physical Exam Vital Signs: Temp Pulse Resp BP Pulse Ox 97.8 F 74 19 172/45 H 97 09/05/18 15:56 09/05/18 15:56 09/05/18 15:56 09/05/18 15:56 09/05/18 15:56 Intake & Output 09/04/18 09/05/18 09/06/18 06:59 06:59 06:59 Weight 118.2 kg Exam: General appearance: No acute distress, cooperative, well-developed, well- nourished Head exam: PRESENT: atraumatic, normocephalic Eye exam: PRESENT: Conjunctiva [place], EOMI, PERRLA. ABSENT: conjunctival injection, scleral icterus Mouth exam: PRESENT: moist, neck supple, tongue midline Neck exam: PRESENT: full ROM. ABSENT: carotid bruit, JVD, lymphadenopathy, thyromegaly Respiratory exam: PRESENT: clear to auscultation bilaterally. ABSENT: rales, rhonchi, stridor, wheezes Cardiovascular exam: PRESENT: RRR, +S1, +S2. Grade 2/6 systolic murmur Pulses: PRESENT: normal radial pulses, normal dorsalis pedis pulses GI/Abdominal exam: PRESENT: normal bowel sounds, soft. ABSENT: guarding, mass, tenderness Rectal exam: Deferred Extremities exam: PRESENT: full ROM. Grade 1 bilateral lower extremity pitting edema ABSENT: calf tenderness Musculoskeletal: PRESENT: full ROM. ABSENT: deformity Neurological exam: PRESENT: alert, Awake, Oriented to person, Oriented to place, Oriented to time, reflexes normal, CN II-XII grossly intact. ABSENT: motor sensory deficit Psychiatric exam: PRESENT: appropriate affect, normal mood. ABSENT: homicidal ideation, suicidal ideation Skin exam: PRESENT: intact, dry, warm. ABSENT: rash Results Laboratory Results: 09/05/18 04:42 09/05/18 04:42 09/05/18 09/05/18 09/05/18 04:42 04:42 10:15 WBC 5.6 RBC 2.95 L Hgb 8.5 L Hct 26.0 L MCV 88 MCH 28.7 MCHC 32.6 RDW 15.4 H Plt Count 149 L Seg Neutrophils % 67.9 Lymphocytes % 15.6 Monocytes % 7.1 Eosinophils % 8.1 H Basophils % 1.3 Absolute Neutrophils 3.8 Absolute Lymphocytes 0.9 Absolute Monocytes 0.4 Absolute Eosinophils 0.5 Absolute Basophils 0.1 Retic Count (auto) 1.93 Absolute Retic 0.054 Sodium 143.3 Potassium 4.7 Chloride 108 H Carbon Dioxide 27 Anion Gap 8 BUN 53 H Creatinine 3.30 H Est GFR ( Amer) 22 L Est GFR (Non-Af Amer) 18 L Glucose 104 Calcium 8.4 Phosphorus Magnesium 1.9 Iron TIBC % Saturation Ferritin Vitamin B12 Folate PTH Intact Urine Color Urine Appearance Urine pH Ur Specific [place] Urine Protein Urine Glucose (UA) Urine Ketones Urine Blood Urine Nitrite Ur Leukocyte Esterase Urine WBC (Auto) Urine RBC (Auto) 09/05/18 09/05/18 09/05/18 10:15 10:15 11:20 WBC RBC Hgb Hct MCV MCH MCHC RDW Plt Count Seg Neutrophils % Lymphocytes % Monocytes % Eosinophils % Basophils % Absolute Neutrophils Absolute Lymphocytes Absolute Monocytes Absolute Eosinophils Absolute Basophils Retic Count (auto) Absolute Retic Sodium Potassium Chloride Carbon Dioxide Anion Gap BUN Creatinine Est GFR ( Amer) Est GFR (Non-Af Amer) Glucose Calcium Phosphorus 3.8 Magnesium Iron 35.1 L TIBC 254 % Saturation 14 Ferritin 181.00 Vitamin B12 479.0 Folate > 20.00 PTH Intact 238.8 H Urine Color [place] Urine Appearance CLEAR Urine pH 7.0 Ur Specific [place] 1.010 Urine Protein 100 H Urine Glucose (UA) 50 H Urine Ketones NEGATIVE Urine Blood SMALL H Urine Nitrite NEGATIVE Ur Leukocyte Esterase NEGATIVE Urine WBC (Auto) 1 Urine RBC (Auto) 0 09/04/18 09/04/18 09/04/18 11:10 11:10 15:06 Creatine Kinase 112 CK-MB (CK-2) 4.05 Troponin I 0.029 0.028 NT-Pro-B Natriuret Pep 9310 H Impressions: Chest X-Ray 09/04/18 10:59 IMPRESSION: Stable moderate cardiomegaly. No acute findings Assessment & Plan - Diagnosis (1) CKD (chronic kidney disease) stage 4, GFR 15-29 ml/min Is this a current diagnosis for this admission?: Yes Plan: Associated with nephrotic range proteinuria with urine protein to creatinine ratio of 3.7. No significant microhematuria. This is most likely due to diabetic nephropathy with contribution of hypertension. Currently at baseline kidney function. Patient has significant fluid retention but no uremic symptoms. Patient does not require any renal replacement therapy at this point. Continue current IV Lasix. I think the patient needs to have an adjusted dose of his Lasix 40 mg twice daily on discharge. He is also to follow-up with his rn surgery icu Dr. Conroy within 1-2 weeks of discharge. (2) Diabetic nephropathy Qualifiers: Diabetes mellitus type: type 2 Qualified Code(s): E11.21 - Type 2 diabetes mellitus with diabetic nephropathy Is this a current diagnosis for this admission?: Yes (3) Proteinuria Is this a current diagnosis for this admission?: Yes Plan: Within nephrotic range. (4) Hypertension Is this a current diagnosis for this admission?: Yes Plan: Seems labile at this point. Increasing the Lasix would help this as well. (5) Anemia in chronic kidney disease (CKD) Is this a current diagnosis for this admission?: Yes Plan: Patient will need Procrit hold it for now due to elevated blood pressure. We will also give the patient IV iron before giving the Procrit. (6) Iron deficiency anemia Is this a current diagnosis for this admission?: Yes Plan: We will give the patient a dose of IV Injectafer 750 mg. (7) Secondary hyperparathyroidism (of renal origin) Is this a current diagnosis for this admission?: Yes Plan: Start calcitriol 0.25 mcg times a week. - Notes Notes: Thank you very much for this consultation. We will follow the patient with you. - Time Time Spent: Greater than 70 Minutes
[2018-09-05] MEDS ORDERED: FERRIC CARBOXYMALTOSE 750 MG in NORMAL SALINE 100 ML IV ONE (22:00)
[2018-09-06] MEDS: INSULIN LISPRO 100 UNIT/ML 3 ML VIAL SUBCUT SCH (07:32)
[2018-09-06 08:16] LABS: ABSOLUTE BASOPHILS # (AUTO) 0.1 10^3/uL (0.0-0.2); ABSOLUTE EOSINOPHILS # (AUTO) 0.4 10^3/uL (0.0-0.6); ABSOLUTE LYMPHOCYTES (AUTO) 0.7 10^3/uL (0.5-4.7); ABSOLUTE MONOCYTES (AUTO) 0.5 10^3/uL (0.1-1.4); ABSOLUTE NEUT (AUTO) 4.3 10^3/uL (1.7-8.2); BASOPHILS % (AUTO) 1.1 % (0-2); EOSINOPHILS % (AUTO) 7.4 % (0-6); HEMATOCRIT 26.2 % (37.9-51.0); HEMOGLOBIN 8.6 g/dL (13.5-17.0); LYMPHOCYTES % (AUTO) 12.1 % (13-45); MEAN CORPUSCULAR VOLUME 88 fl (80-97); MONOCYTES % (AUTO) 7.8 % (3-13); PLATELET COUNT 158 10^3/uL (150-450); RED BLOOD COUNT 2.99 10^6/uL (4.35-5.55); RED CELL DISTRIBUTION WIDTH 15.1 % (11.5-14.0); SEGMENTED NEUTROPHILS % (AUTO) 71.6 % (42-78); TOTAL CELLS COUNTED % (AUTO) 100 %
[2018-09-06 08:25] LABS: ANION GAP 10 (5-19); BLOOD UREA NITROGEN 53 mg/dL (7-20); CALCIUM 8.4 mg/dL (8.4-10.2); CARBON DIOXIDE 28 mmol/L (22-30); CHLORIDE 104 mmol/L (98-107); GLUCOSE 103 mg/dL (75-110); POTASSIUM 4.3 mmol/L (3.6-5.0)
[2018-09-06] MEDS: FUROSEMIDE INJ/PF 40 MG/4 ML SDV IV SCH (10:15)
[2018-09-06] MEDS: HEPARIN SOD (PORCINE) 5,000 UNIT/ML 1 ML SYRINGE SUBCUT SCH (10:15)
[2018-09-06] MEDS: ASPIRIN 81 MG TABLET, CHEWABLE PO SCH (10:16)
[2018-09-06 13:02] VITALS: BP 168/61
[2018-09-06] MEDS ORDERED: EPOETIN ALFA INJ 40000 UNIT/1 ML (RENAL) SUBCUT ONE (13:30)
--- NOTE | 2018-09-06 18:28 | PDOC PROGRESS REPORT ---
Subjective Progress Note for:: 09/06/18 Subjective:: Patient is doing been doing well and is ready to go home today. I gave him a dose of IV Injectafer last night. His blood pressure is more acceptable today. He does not have any new complaints. Reason For Visit: FLUID OVERLOAD, CHRONIC RENAL FAILURE Physical Exam Vital Signs: Temp Pulse Resp BP Pulse Ox 97.7 F 68 19 168/61 H 100 09/06/18 14:09 09/06/18 14:09 09/06/18 14:09 09/06/18 14:09 09/06/18 14:09 Intake & Output 09/05/18 09/06/18 09/07/18 06:59 06:59 06:59 Intake Total 905 Output Total 2710 Balance -1805 Weight 118.2 kg 118.9 kg Exam: General appearance: PRESENT: no acute distress, cooperative, well-developed, well-nourished Head exam: PRESENT: atraumatic, normocephalic Eye exam: PRESENT: conjunctiva pink, PERRLA. ABSENT: scleral icterus Neck exam: ABSENT: JVD Respiratory exam: PRESENT: Normal breath sounds. ABSENT: crackles, rales, rhonchi, unlabored, wheezes Cardiovascular exam: PRESENT: Regular rate rhythm -+S1, +S2. ABSENT: diastolic murmur, systolic murmur GI/Abdominal exam: PRESENT: normal bowel sounds, soft. ABSENT: guarding, mass, tenderness Extremities exam: Improved trace bilateral lower extremity edema Neurological exam: PRESENT: alert, awake, oriented to person, place and time. Skin exam: PRESENT: dry, warm, Results Laboratory Results: 09/06/18 06:54 09/06/18 06:54 09/06/18 09/06/18 06:54 06:54 WBC 6.0 RBC 2.99 L Hgb 8.6 L Hct 26.2 L MCV 88 MCH 29.0 MCHC 33.0 RDW 15.1 H Plt Count 158 Seg Neutrophils % 71.6 Lymphocytes % 12.1 L Monocytes % 7.8 Eosinophils % 7.4 H Basophils % 1.1 Absolute Neutrophils 4.3 Absolute Lymphocytes 0.7 Absolute Monocytes 0.5 Absolute Eosinophils 0.4 Absolute Basophils 0.1 Sodium 142.0 Potassium 4.3 Chloride 104 Carbon Dioxide 28 Anion Gap 10 BUN 53 H Creatinine 3.23 H Est GFR ( Amer) 23 L Est GFR (Non-Af Amer) 19 L Glucose 103 Calcium 8.4 09/04/18 09/04/18 09/04/18 11:10 11:10 15:06 Creatine Kinase 112 CK-MB (CK-2) 4.05 Troponin I 0.029 0.028 NT-Pro-B Natriuret Pep 9310 H Impressions: Chest X-Ray 09/04/18 10:59 IMPRESSION: Stable moderate cardiomegaly. No acute findings Assessment & Plan - Diagnosis (1) CKD (chronic kidney disease) stage 4, GFR 15-29 ml/min Is this a current diagnosis for this admission?: Yes Plan: Kidney function is stable. Patient's told me that patient has follow-up appointment scheduled already with Dr. Conroy, his assistant real estate manager on September 17. Increase Lasix to 40 mg twice daily on discharge. (2) Diabetic nephropathy Qualifiers: Diabetes mellitus type: type 2 Qualified Code(s): E11.21 - Type 2 diabetes mellitus with diabetic nephropathy Is this a current diagnosis for this admission?: Yes (3) Proteinuria Is this a current diagnosis for this admission?: Yes (4) Hypertension Is this a current diagnosis for this admission?: Yes Plan: Continue current blood pressure regimen. (5) Anemia in chronic kidney disease (CKD) Is this a current diagnosis for this admission?: Yes Plan: We will give him a dose of Procrit 40,000 units subcutaneously prior to discharge. His anemia needs to be reevaluated by Dr. Conroy to determine if he needs further Procrit moving forward. (6) Iron deficiency anemia Is this a current diagnosis for this admission?: Yes Plan: Patient receive a dose of IV Injectafer last night. (7) Secondary hyperparathyroidism (of renal origin) Is this a current diagnosis for this admission?: Yes Plan: Patient started on calcitriol 0.25 mcg 3 times a week. - Notes Notes: From nephrology standpoint patient can be safely discharged home to follow-up with Dr. Conroy. - Time Time with patient: 15-25 minutes
[2018-09-06] MEDS ORDERED: CALCITRIOL 0.25 MCG CAPSULE PO SCH (18:41)
--- NOTE | 2018-09-07 16:26 | PDOC DISCHARGE SUMMARY ---
General - Admit/Disc Date/PCP Admission Date/Primary Care Provider: 09/05/18 11:52 YELENA DOMINGO MD Discharge Date: 09/06/18 - Discharge Diagnosis (1) Fluid overload Is this a current diagnosis for this admission?: Yes (2) CKD (chronic kidney disease) stage 4, GFR 15-29 ml/min Is this a current diagnosis for this admission?: Yes - Additional Information Discharge Diet: Cardiac, Diabetic Discharge Activity: Activity As Tolerated, Balance Activity w/Rest, Weigh Daily Prescriptions: Furosemide [Lasix 40 mg Tablet] 40 mg PO BID #60 tablet Home Medications: Albuterol Sulfate [Proair HFA] 2 puff IH Q4HP PRN 12/18/17 Aspirin [Adult Low Dose Aspirin EC] 81 mg PO DAILY 12/18/17 Escitalopram Oxalate [Lexapro] 20 mg PO DAILY 12/18/17 Finasteride [Proscar 5 mg Tablet] 5 mg PO DAILY 12/18/17 Fluticasone/Salmeterol [Advair 500-50 Diskus 28 Dose] 1 puff IH Q12 12/18/17 Gabapentin [Neurontin 300 mg Capsule] 300 mg PO Q8 12/18/17 Isosorbide Mononitrate [Imdur 30 mg Tablet.er] 30 mg PO DAILY 12/18/17 Potassium Chloride [Klor-Con M20] 20 meq PO DAILY 12/18/17 Risperidone [Risperdal 1 mg Tablet] 1 mg PO DAILY 12/18/17 Acetaminophen/Diphenhydramine [Tylenol Pm Ex-Strength Caplet] 2 each PO HSP PRN 08/14/18 Docusate Sodium [Colace 100 mg Capsule] 100 mg PO BID 08/14/18 Mirabegron [Myrbetriq] 50 mg PO DAILY 08/14/18 Prazosin HCl [Minipress] 10 mg PO TID 09/04/18 Furosemide [Lasix 40 mg Tablet] 40 mg PO BID #60 tablet 09/06/18 History of Present Illness History of Present Illness: LAURO CAI is a 78 year old male with a PMH of CHF, CKD 4, COPD, DM 2 with neuropathy, proteinuria, RAJIV not compliant with CPAP, was recently admitted for fluid overload who presented with increasing pedal edema and SOB. Patient says he has been having increasing SOB and orthopnea in the past 7 days. He has chronic bipedal edema and says this has been worsening again in the past week. He denies chest pain. No fever, chills or cough. He was given 80 mg of IV Lasix in the ER. Hospital Course Hospital Course: LAURO CAI is a 78 year old male with a PMH of CHF, CKD 4, COPD, DM 2 with neuropathy, proteinuria, RAJIV not compliant with CPAP, was recently admitted for fluid overload who presented with increasing pedal edema and SOB. He was admitted for fluid overload. He was started on IV Lasix 40 mg q8h initially. This significantly improved his SOB and edema. He eventually returned to his baseline. He had a recent echo which shows normal EF and normal diastolic function. His lfuid overload is likely more related to his chronic renal failure. He is not on dialysis yet and still makes urine but says he has had a fistula placed per his production tester in anticipation of PUBLIC FINANCE SPECIALIST in the future. Nephrology also evaluated patient. Patient takes 40 mg of Lasix PO daily. He was advised to increase it to 40 mg bid PO per nephro recommendations. Physical Exam Vital Signs: Temp Pulse Resp BP Pulse Ox 97.7 F 68 19 168/61 H 100 09/06/18 14:09 09/06/18 14:09 09/06/18 14:09 09/06/18 14:09 09/06/18 14:09 Intake & Output 09/06/18 09/07/18 09/08/18 06:59 06:59 06:59 Intake Total 905 Output Total 2710 Balance -1805 Weight 262 lb 2.074 oz General appearance: PRESENT: no acute distress, well-developed, well-nourished Head exam: PRESENT: atraumatic, normocephalic Eye exam: PRESENT: conjunctiva pink, EOMI, PERRLA. ABSENT: scleral icterus Ear exam: PRESENT: normal external ear exam Mouth exam: PRESENT: moist, tongue midline Neck exam: ABSENT: carotid bruit, JVD, lymphadenopathy, thyromegaly Respiratory exam: PRESENT: clear to auscultation lachelle. ABSENT: rales, rhonchi, wheezes Cardiovascular exam: PRESENT: RRR. ABSENT: diastolic murmur, rubs, systolic murmur Pulses: PRESENT: normal dorsalis pedis pul GI/Abdominal exam: PRESENT: normal bowel sounds, soft. ABSENT: distended, guarding, mass, organolmegaly, rebound, tenderness Rectal exam: PRESENT: deferred Extremities exam: PRESENT: +2 edema - significantly improved since admission, now at baseline Neurological exam: PRESENT: alert, awake, oriented to person, oriented to place, oriented to time, oriented to situation, CN II-XII grossly intact. ABSENT: motor sensory deficit Results Laboratory Results: 09/06/18 06:54 09/06/18 06:54 09/04/18 09/04/18 09/04/18 11:10 11:10 15:06 Creatine Kinase 112 CK-MB (CK-2) 4.05 Troponin I 0.029 0.028 NT-Pro-B Natriuret Pep 9310 H Impressions: Chest X-Ray 09/04/18 10:59 IMPRESSION: Stable moderate cardiomegaly. No acute findings Qualifiers - * PATIENT BEING DISCHARGED WITH ANY OF THE FOLLOWING DIAGNOSIS: No
--- NOTE | 2018-09-07 16:31 | PDOC PROGRESS REPORT ---
Subjective Progress Note for:: 09/05/18 Subjective:: LAURO CAI is a 78 year old male with a PMH of CHF, CKD 4, COPD, DM 2 with neuropathy, proteinuria, RAJIV not compliant with CPAP, was recently admitted for fluid overload who presented with increasing pedal edema and SOB. He was admitted for fluid overload. He was started on IV Lasix. No acute event overnight. He says his breathing has significantly improved today but not at his baseline yet. His pedal edema also has improved. Denies chest pain. Reason For Visit: FLUID OVERLOAD, CHRONIC RENAL FAILURE Physical Exam Vital Signs: Temp Pulse Resp BP Pulse Ox 98.1 F 76 16 137/64 H 96 09/05/18 13:00 09/05/18 13:00 09/05/18 13:00 09/05/18 13:00 09/05/18 13:00 Intake & Output 09/04/18 09/05/18 09/06/18 06:59 06:59 06:59 Weight 260 lb 9.382 oz General appearance: PRESENT: no acute distress, well-developed, well-nourished Head exam: PRESENT: atraumatic, normocephalic Eye exam: PRESENT: conjunctiva pink, EOMI, PERRLA. ABSENT: scleral icterus Ear exam: PRESENT: normal external ear exam Mouth exam: PRESENT: moist, tongue midline Neck exam: ABSENT: carotid bruit, JVD, lymphadenopathy, thyromegaly Respiratory exam: PRESENT: clear to auscultation lachelle. ABSENT: rales, rhonchi, wheezes Cardiovascular exam: PRESENT: RRR. ABSENT: diastolic murmur, rubs, systolic murmur GI/Abdominal exam: PRESENT: normal bowel sounds, soft. ABSENT: distended, guarding, mass, organolmegaly, rebound, tenderness Rectal exam: PRESENT: deferred Extremities exam: PRESENT: +2 edema Neurological exam: PRESENT: alert, awake, oriented to person, oriented to place, oriented to time, oriented to situation, CN II-XII grossly intact. ABSENT: mot or sensory deficit Results Laboratory Results: 09/05/18 04:42 09/05/18 04:42 09/05/18 09/05/18 09/05/18 04:42 04:42 10:15 WBC 5.6 RBC 2.95 L Hgb 8.5 L Hct 26.0 L MCV 88 MCH 28.7 MCHC 32.6 RDW 15.4 H Plt Count 149 L Seg Neutrophils % 67.9 Lymphocytes % 15.6 Monocytes % 7.1 Eosinophils % 8.1 H Basophils % 1.3 Absolute Neutrophils 3.8 Absolute Lymphocytes 0.9 Absolute Monocytes 0.4 Absolute Eosinophils 0.5 Absolute Basophils 0.1 Retic Count (auto) 1.93 Absolute Retic 0.054 Sodium 143.3 Potassium 4.7 Chloride 108 H Carbon Dioxide 27 Anion Gap 8 BUN 53 H Creatinine 3.30 H Est GFR ( Amer) 22 L Est GFR (Non-Af Amer) 18 L Glucose 104 Calcium 8.4 Phosphorus Magnesium 1.9 Iron TIBC % Saturation Ferritin Vitamin B12 Folate PTH Intact Urine Color Urine Appearance Urine pH Ur Specific Macy Urine Protein Urine Glucose (UA) Urine Ketones Urine Blood Urine Nitrite Ur Leukocyte Esterase Urine WBC (Auto) Urine RBC (Auto) 09/05/18 09/05/18 09/05/18 10:15 10:15 11:20 WBC RBC Hgb Hct MCV MCH MCHC RDW Plt Count Seg Neutrophils % Lymphocytes % Monocytes % Eosinophils % Basophils % Absolute Neutrophils Absolute Lymphocytes Absolute Monocytes Absolute Eosinophils Absolute Basophils Retic Count (auto) Absolute Retic Sodium Potassium Chloride Carbon Dioxide Anion Gap BUN Creatinine Est GFR ( Amer) Est GFR (Non-Af Amer) Glucose Calcium Phosphorus 3.8 Magnesium Iron 35.1 L TIBC 254 % Saturation 14 Ferritin 181.00 Vitamin B12 479.0 Folate > 20.00 PTH Intact 238.8 H Urine Color STRAW Urine Appearance CLEAR Urine pH 7.0 Ur Specific Macy 1.010 Urine Protein 100 H Urine Glucose (UA) 50 H Urine Ketones NEGATIVE Urine Blood SMALL H Urine Nitrite NEGATIVE Ur Leukocyte Esterase NEGATIVE Urine WBC (Auto) 1 Urine RBC (Auto) 0 09/04/18 09/04/18 09/04/18 11:10 11:10 15:06 Creatine Kinase 112 CK-MB (CK-2) 4.05 Troponin I 0.029 0.028 NT-Pro-B Natriuret Pep 9310 H Impressions: Chest X-Ray 09/04/18 10:59 IMPRESSION: Stable moderate cardiomegaly. No acute findings Assessment & Plan - Diagnosis (1) Fluid overload Is this a current diagnosis for this admission?: Yes Plan: Patient was recently admitted for CHF exacerbation. He had a recent echo which shows normal EF and normal diastolic function. He does appear fluid overloaded. This is likely more related to his chronic renal failure. He is not on dialysis yet and still makes urine but says he has had a fistula placed per his criminal justice program director in anticipation of MEDIA CENTER SPECIALIST in the future. Improving. He has diuresed well. Decrease Lasix to 40 mg q12. - Time Time Spent with patient: 25-34 minutes
== END 2018-09-06 14:33 | disposition home or self-care (01) | DRG 640 ==
LOC: ER 10:40 → EH 15:23 → 4N 17:32 → OBSVTOIN 09-05 11:52
PROVIDERS: ADMIT Internal Medicine; ATTEND Internal Medicine
DX: E87.70 Fluid overload, unspecified (principal); I50.23 Acute on chronic systolic (congestive) heart failure; N18.4 Chronic kidney disease, stage 4 (severe); N25.81 Secondary hyperparathyroidism of renal origin; J44.9 Chronic obstructive pulmonary disease, unspecified; E11.22 Type 2 diabetes mellitus with diabetic chronic kidney disease; I50.9 Heart failure, unspecified; E11.40 Type 2 diabetes mellitus with diabetic neuropathy, unspecified; I13.10 Hypertensive heart and chronic kidney disease without heart failure, with stage 1 through stage 4 chronic kidney disease, or unspecified chronic kidney disease; G47.33 Obstructive sleep apnea (adult) (pediatric); I25.10 Atherosclerotic heart disease of native coronary artery without angina pectoris; E78.5 Hyperlipidemia, unspecified; K21.9 Gastro-esophageal reflux disease without esophagitis; M15.9 Polyosteoarthritis, unspecified; F32.9 Major depressive disorder, single episode, unspecified; E11.21 Type 2 diabetes mellitus with diabetic nephropathy; D63.1 Anemia in chronic kidney disease; D50.9 Iron deficiency anemia, unspecified; I25.2 Old myocardial infarction; Z91.19 Patient's noncompliance with other medical treatment and regimen; Z79.899 Other long term (current) drug therapy; Z87.891 Personal history of nicotine dependence; Z83.3 Family history of diabetes mellitus; Z80.51 Family history of malignant neoplasm of kidney; Z82.49 Family history of ischemic heart disease and other diseases of the circulatory system; Z88.8 Allergy status to other drugs, medicaments and biological substances; Z91.013 Allergy to seafood; Z79.82 Long term (current) use of aspirin
CPT/HCPCS: 36415; 71045; 80048; 80053; 81001; 82550; 82553; 82570; 82607; 82728; 82746; 82962; 83540; 83550; 83735; 83880; 83970; 84100; 84156; 84484; 85025; 85045; 85610; 93005; 93010; 96374; 99285; G0378; J1439; J1644; J1940; Q4081

== ENCOUNTER 2019-01-05 19:21 | Emergency (ER) | payer MEDICARE, OTHER ==
[2019-01-05] MEDS ORDERED: FUROSEMIDE INJ/PF 20 MG/2 ML SDV IV ONE (19:30)
--- NOTE | 2019-01-05 19:31 | ER Document Report ---
ED General - General Stated Complaint: RESPIRATORY DISTRESS Time Seen by Provider: 01/05/19 19:29 Primary Care Provider: YELENA DOMINGO MD [Primary Care Provider] - Follow up as needed Notes: Patient is a 78-year-old male with past medical history of CHF, chronic kidney disease stage V, anemia of chronic disease, coronary artery disease, essential hypertension, presents with complaints of shortness of breath. Patient has had several days of progressively worsening swelling of the bilateral lower extremities became acutely short of breath several hours prior to arrival. States that his symptoms started relatively abruptly, rapidly progressed in their severity and continues regards him as being severe in nature. Shortness of breath moderately improved after being placed on BiPAP, worsened by exertion. Denies associated chest pain. Has a history of similar episodes in the past with volume overload. Has been compliant with all medications by his report. Has not seen his primary care physician regarding today's concerns. TRAVEL OUTSIDE OF THE [place] IN LAST 30 DAYS: No - Related Data Allergies/Adverse Reactions: enalapril [Enalapril] Allergy (Severe, Verified 01/05/19 19:52) Angioneurotic Edema shrimp Allergy (Verified 01/05/19 19:52) Past Medical History - General Information source: Patient, Emergency Med Personnel - Social History Smoking Status: Never Smoker Frequency of alcohol use: None Drug Abuse: None Lives with: Spouse/Significant other Family History: DM, Other - no FH of familial angioedema - Past Medical History Cardiac Medical History: Reports: Hx Congestive Heart Failure, Hx Heart Attack - 2007, Hx Hypercholesterolemia, Hx Hypertension Denies: Hx Coronary Artery Disease Pulmonary Medical History: Reports: Hx COPD Denies: Hx Asthma, Hx Bronchitis, Hx Pneumonia Neurological Medical History: Denies: Hx Cerebrovascular Accident, Hx Seizures Endocrine Medical History: Reports: Hx Diabetes Mellitus Type 2 Renal/ Medical History: Reports: Hx Benign Prostatic Hyperplasia, Hx End Stage Renal Disease. Denies: Hx Peritoneal Dialysis GI Medical History: Reports: Hx Gastroesophageal Reflux Disease Musculoskeletal Medical History: Reports Hx Arthritis - GENERALIZED THROUGHOUT Psychiatric Medical History: Reports: Hx Depression Past Surgical History: Reports: Hx Orthopedic Surgery - toe, Other - Dialysis catheter - Immunizations Hx Diphtheria, Pertussis, Tetanus Vaccination: No Hx Pneumococcal Vaccination: 08/06/14 Review of Systems - Review of Systems Notes: Constitutional: Negative for fever. HENT: Negative for sore throat. Eyes: Negative for visual changes. Cardiovascular: Negative for chest pain. Respiratory: Positive for shortness of breath. Gastrointestinal: Negative for abdominal pain, vomiting or diarrhea. Genitourinary: Negative for dysuria. Musculoskeletal: Positive for bilateral lower extremity edema that is equal and symmetric Skin: Negative for rash. Neurological: Negative for headaches, weakness or numbness. 10 point ROS negative except as marked above and in HPI. Physical Exam - Vital signs Vitals: Resp 25 H 01/05/19 19:25 Interpretation: Hypertensive, Tachypneic Notes: PHYSICAL EXAMINATION: GENERAL: Ill in appearance, mild to moderate respiratory distress HEAD: Atraumatic, normocephalic. EYES: Pupils equal round and reactive to light, extraocular movements intact, sclera anicteric, conjunctiva are normal. ENT: nares patent, oropharynx clear without exudates. Mild dry mucous membranes. NECK: Normal range of motion, supple without lymphadenopathy LUNGS: Coarse rales in all lung nunn. Mild tachypnea. Subtle retractions along the chest wall. HEART: Regular rate and rhythm without murmurs ABDOMEN: Soft, nontender, normoactive bowel sounds. No guarding, no rebound. No masses appreciated. EXTREMITIES: Normal range of motion, 4+ pitting edema in the bilateral lower extremities that is equal and symmetric. No cyanosis. NEUROLOGICAL: No focal neurological deficits. Moves all extremities spontaneously and on command. PSYCH: Normal mood, normal affect. SKIN: Warm, Dry, normal turgor, no rashes or lesions noted. Course - Re-evaluation Re-evalutation: 01/05/19 19:30 Patient presents in moderate respiratory distress, initially for EMS saturating in the mid 80s on room air, in distress and improved on CPAP in route to the hospital. On arrival the patient was immediately transitioned to her BiPAP. Noted to have continued labor of breathing although is now able to speak in full sentence which apparently was unable to do previously. The patient has notable edema in the bilateral lower extremities, 4+ bilaterally. Coarse rales throughout. Has history of CHF, suspect volume overload with CHF exacerbation. Patient will receive Lasix 40 mg IV, continue on BiPAP, labs, chest x-ray pending. Patient is in guarded condition and will be reassessed at regular intervals. 01/05/19 20:58 Labs reveal elevated BNP, chest x-ray otherwise clear likely secondary to patient being on BiPAP for proximal 1 hour prior to onset of chest x-ray. Troponin also elevated at 0.6 much higher than previous labs and his renal function also appears to have worsened. He has some subtle ST depressions in the lateral leads but do not meet definitive ischemic criteria. Patient will require transfer given markedly elevated troponin in the context of known coronary artery disease as well as renal failure. 01/05/19 21:19 I have called to [facility] and have requested transfer. I am awaiting c allback. 01/05/19 21:27 I discussed this case with Dr. Kobe Aparicio who has accepted the patient to [facility]. 01/05/19 23:19 Patient has remained stable with current measures as discussed above. EMS transport has arrived as no other transport method was available and patient did not meet flight criteria. He is stable and appropriate for transfer at this time. - Vital Signs Vital signs: Temp Pulse Resp BP Pulse Ox 19 160/87 H 99 01/05/19 22:31 01/05/19 22:31 01/05/19 22:31 - Laboratory Result Diagrams: 01/05/19 19:26 01/05/19 19:26 Laboratory results interpreted by me: 01/05/19 01/05/19 01/05/19 19:26 19:26 19:26 RBC 2.69 L Hgb 7.4 L Hct 23.0 L RDW 17.8 H Lymphocytes % 10.7 L BUN 76 H Creatinine 4.12 H Est GFR ( Amer) 17 L Est GFR (Non-Af Amer) 14 L Glucose 152 H ALT 18 L NT-Pro-B Natriuret Pep 14046 H - Diagnostic Test Radiology reviewed: Image reviewed, Reports reviewed Radiology results interpreted by me: 01/05/19 21:16 Chest x-ray: No acute infiltrate or pneumothorax - EKG Interpretation by Me Additional EKG results interpreted by me: 01/05/19 21:18 Sinus rhythm, rate 89, subtle ST depression in the lateral leads. QT prolonged at 512. Critical Care Note - Critical Care Note Total time excluding time spent on procedures (mins): 36 Comments: Critical care time spent obtaining history from patient or surrogate, discussions with consultants, development of treatment plan with patient or surrogate, evaluation of patient's response to treatment, examination of patient, ordering and performing treatments and interventions, ordering and review of laboratory studies, re-evaluation of patient's condition, ordering and review of radiographic studies and review of old charts Discharge - Discharge Clinical Impression: Respiratory distress, Shortness of breath, Acute respiratory failure with hypoxia, Acute kidney injury superimposed on chronic kidney disease, NSTEMI (non-ST elevated myocardial infarction) Acute on chronic congestive heart failure Qualifiers: Heart failure type: unspecified Qualified Code(s): I50.9 - Heart failure, unspecified Condition: Fair Disposition: Critical access hospital Referrals: YELENA DOMINGO MD [Primary Care Provider] - Follow up as needed
[2019-01-05 19:43] LABS: VENOUS BLOOD BASE EXCESS 0.9 mmol/L; VENOUS BLOOD HCO3 27.7 mmol/L (20-32); VENOUS BLOOD PCO2 56.7 mmHg (35-63); VENOUS BLOOD PH 7.31 (7.30-7.42)
[2019-01-05 19:46] LABS: ABSOLUTE BASOPHILS # (AUTO) 0.1 10^3/uL (0.0-0.2); ABSOLUTE EOSINOPHILS # (AUTO) 0.4 10^3/uL (0.0-0.6); ABSOLUTE LYMPHOCYTES (AUTO) 0.8 10^3/uL (0.5-4.7); ABSOLUTE MONOCYTES (AUTO) 0.4 10^3/uL (0.1-1.4); ABSOLUTE NEUT (AUTO) 5.8 10^3/uL (1.7-8.2); LYMPHOCYTES % (AUTO) 10.7 % (13-45); MEAN CORPUSCULAR HEMOGLOBIN 27.5 pg (27.0-33.4); MEAN CORPUSCULAR HGB CONC 32.3 g/dL (32.0-36.0); MEAN CORPUSCULAR VOLUME 85 fl (80-97); MONOCYTES % (AUTO) 5.7 % (3-13); PLATELET COUNT 191 10^3/uL (150-450); RED BLOOD COUNT 2.69 10^6/uL (4.35-5.55); RED CELL DISTRIBUTION WIDTH 17.8 % (11.5-14.0); SEGMENTED NEUTROPHILS % (AUTO) 77.6 % (42-78); TOTAL CELLS COUNTED % (AUTO) 100 %; WHITE BLOOD COUNT 7.5 10^3/uL (4.0-10.5)
[2019-01-05 19:49] LABS: HEMOGLOBIN 7.4 g/dL (13.5-17.0)
[2019-01-05 20:01] LABS: ALANINE AMINOTRANSFERASE 18 U/L (21-72); ALBUMIN 3.5 g/dL (3.5-5.0); ALKALINE PHOSPHATASE 63 U/L (38-126); ANION GAP 13 (5-19); ASPARTATE AMINO TRANSFERASE 22 U/L (17-59); BILIRUBIN,DIRECT 0.4 mg/dL (0.0-0.4); BILIRUBIN,TOTAL 0.5 mg/dL (0.2-1.3); BLOOD UREA NITROGEN 76 mg/dL (7-20); CALCIUM 8.4 mg/dL (8.4-10.2); CARBON DIOXIDE 28 mmol/L (22-30); CHLORIDE 102 mmol/L (98-107); GLUCOSE 152 mg/dL (75-110); POTASSIUM 4.3 mmol/L (3.6-5.0); SODIUM 143.4 mmol/L (137-145); TOTAL PROTEIN 7.3 g/dL (6.3-8.2)
[2019-01-05 20:15] LABS: TROPONIN I 0.646 ng/mL
--- NOTE | 2019-01-05 20:37 | RADIOLOGY REPORT (SQ) ---
EXAM DESCRIPTION: XR CHEST 1 VIEW COMPLETED DATE/TME: 01/05/2019 19:29 CLINICAL HISTORY: sob, pulm edema COMPARISON: September 04, 2018 FINDINGS: Cardiac silhouette is enlarged, unchanged compared with the prior exam. EKG leads project over the chest.. There is no focal parenchymal or pleural disease. There is no acute osseous process visualized. IMPRESSION: No evidence of acute cardiopulmonary disease.
[2019-01-05] MEDS ORDERED: ASPIRIN 81 MG TABLET, CHEWABLE PO ONE (20:57)
[2019-01-05] MEDS ORDERED: ENOXAPARIN SODIUM INJ 120 MG/0.8 ML DISP.SYRIN SUBCUT SCH (22:00)
--- NOTE | 2019-01-05 23:33 | EKG REPORT ---
SEVERITY:- ABNORMAL ECG - SINUS RHYTHM BORDERLINE RIGHT AXIS DEVIATION PROLONGED QT INTERVAL DIFFUSE NS ST-T CHANGES : Confirmed by: Denisse Martin MD 05-Jan-2019 23:32:11
[2019-01-05 23:39] VITALS: BP 151/77
== END 2019-01-05 23:40 | disposition short-term general hospital (02) ==
LOC: ER 19:21
DX: I13.0 Hypertensive heart and chronic kidney disease with heart failure and stage 1 through stage 4 chronic kidney disease, or unspecified chronic kidney disease (principal); E11.22 Type 2 diabetes mellitus with diabetic chronic kidney disease; N18.9 Chronic kidney disease, unspecified; I50.9 Heart failure, unspecified; N17.9 Acute kidney failure, unspecified; J96.01 Acute respiratory failure with hypoxia; I21.4 Non-ST elevation (NSTEMI) myocardial infarction; I25.10 Atherosclerotic heart disease of native coronary artery without angina pectoris; Z88.8 Allergy status to other drugs, medicaments and biological substances; Z91.013 Allergy to seafood
CPT/HCPCS: 93005; 99291; 96372; 96374; 36415; 85025; 80053; 84484; 82803; 83880; 71045; 93010; 94660; J1940; J1650